=== PATIENT | female | born 1945 | race Caucasian/White ===

== ENCOUNTER → 2018-02-04 10:21 | Outpatient (CLI) | payer MEDICARE, OTHER, SELFPAY ==
--- NOTE | 2018-02-04 | DI.MG.S_ITS ---
BILATERAL DIGITAL SCREENING MAMMOGRAM 3D/2D WITH CAD: 02/04/2018 CLINICAL: Routine screening. Family history of breast cancer. Comparison is made to exams dated: 12/31/2016 mammogram, 12/28/2015 mammogram, and 12/13/2014 mammogram - [facility]. The tissue of both breasts is heterogeneously dense. This may lower the sensitivity of mammography. Current study was also evaluated with a Computer Aided Detection (CAD) system. No significant masses, calcifications, or other findings are seen in either breast. There has been no significant interval change. IMPRESSION: NEGATIVE There is no mammographic evidence of malignancy. A 1 year screening mammogram is recommended. This exam was interpreted at Station ID: [id number]. NOTE: For mammograms, a report in lay terms will be sent to the patient. Approximately 15% of breast malignancies will not be visualized mammographically. In the management of a palpable breast mass, a negative mammogram must not discourage biopsy of a clinically suspicious lesion. Electronically Signed By: Lalo lassiter/tami:02/04/2018 11:28:26 letter sent: Normal Exam ACR BI-RADS Category 1: Negative 3341F
== END ==
PROVIDERS: PCP Family Medicine; Visit Provider Family Medicine
DX: Z12.31 Encounter for screening mammogram for malignant neoplasm of breast (principal); Z80.3 Family history of malignant neoplasm of breast
CPT/HCPCS: 77063; 77067

== ENCOUNTER → 2018-07-07 13:20 | Outpatient (CLI) | payer MEDICARE, OTHER, SELFPAY ==
--- NOTE | 2018-07-07 | DI.RAD.S_ITS ---
PROCEDURE: XR KNEE RT 3V INDICATIONS: RIGHT KNEE PAIN TECHNIQUE: 3 views of the knee were acquired. COMPARISON: None. FINDINGS: Bones: No fractures or dislocations. No suspicious bony lesions. Extensive degenerative spurring is present. There is moderate narrowing of the lateral joint space and mild narrowing of medial joint space. Soft tissues: Small joint effusion. No suspicious soft tissue calcifications. IMPRESSION: Moderate right knee joint degeneration. Small joint effusion Dictated by: Tomasz Carreno M.D. on 07/07/2018 at 13:50 Approved by: Tomasz Carreno M.D. on 07/07/2018 at 13:51
== END ==
PROVIDERS: PCP Family Medicine; Visit Provider Family Medicine
DX: M25.561 Pain in right knee (principal); M17.11 Unilateral primary osteoarthritis, right knee; M25.461 Effusion, right knee
CPT/HCPCS: 73562

== ENCOUNTER 2018-07-21 02:25 | Emergency (ER) | payer MEDICARE, OTHER, SELFPAY ==
--- NOTE | 2018-07-21 02:30 | DI.CT.S_ITS ---
PROCEDURE: CT HEAD/BRAIN WO CON INDICATIONS: syncope, head injury, on aspirin TECHNIQUE: Noncontrast 4.5 mm thick angled axial sections acquired from the foramen magnum to the vertex, with coronal and sagittal reformats. For radiation dose reduction, the following was used: automated exposure control, adjustment of mA and/or kV according to patient size. COMPARISON: None. FINDINGS: Image quality: Excellent. CSF spaces: Basal cisterns are patent. No extra-axial fluid collections. The ventricles are symmetric in size and shape. Brain: No intracranial bleeds or masses. There is cerebral volume loss for age, with resultant ventricular and sulcal prominence. There are periventricular and deep white matter chronic small vessel ischemic changes. There is intracranial internal carotid artery atherosclerosis. Skull and face: Calvarium and visualized facial bones appear intact, without suspicious lesions. Sinuses: Right maxillary sinus is completely opacified. There is expansion of the right maxillary sinus. Findings concerning for a mucocele versus less likely malignancy. The mastoids are clear. IMPRESSION: 1. No acute intracranial disease process. 2. Complete opacification of the right maxillary sinus with sinus expansion concerning for mucocele versus less likely malignancy. Recommend dedicated CT scan of the paranasal sinuses and ENT consultation. Dictated by: Victorina Davis MD, PhD on 07/21/2018 at 7:24 Approved by: Victorina Davis MD, PhD on 07/21/2018 at 7:28
[2018-07-21 02:35] VITALS: BP 128/85; PULSE 106; RESP 20; TEMP 36.4; O2SAT 99; BMI 21.7
[2018-07-21] MEDS: SODIUM CHLORIDE 0.9% 1,000 ML 1000 ML IV (02:56)
[2018-07-21] MEDS: ONDANSETRON 4 MG/2 ML INJ IV (02:56)
[2018-07-21 03:10] LABS: Add Manual Diff / Slide Review NO; Basophils Percent Auto 0.3 % (0-2); Eosinophils Percent Auto 1.3 % (2-4); Hematocrit 45.9 % (36-46); Hemoglobin 15.7 g/dL (12.0-16.0); Lymphocytes Percent Auto 3.9 % (25-40); Mean Corpuscular HGB Conc 34.2 % (30-36); Mean Corpuscular Hemoglobin 30.6 PG (26-34); Mean Corpuscular Volume 89.4 fL (80-100); Monocytes Percent Auto 5.1 % (3-14); Neutrophils Absolute Auto 6800 /uL (3000-5900); Neutrophils Percent Auto 89.4 % (50-75); Platelet Count 276 X10^3/uL (150-400); Red Blood Cell Count 5.14 X10^6/uL (4.0-5.2); Red Cell Distribution Width 13.5 % (11.6-14.8); White Blood Cell Count 7.6 X10^3/uL (4.5-11.0)
[2018-07-21 03:20] LABS: BUN Creatinine Ratio 18.9 (6-22); Blood Urea Nitrogen 17 mg/dL (7-17); Calcium 8.7 mg/dL (8.4-10.2); Carbon Dioxide 25 mmol/L (22-32); Chloride 103 mmol/L (98-107); Estimated Glomerular Filt Rate > 60.0 mL/min (>60); Glucose 168 mg/dL (80-110); HEMOLYSIS < 15 (0-50); Potassium 4.5 mmol/L (3.4-5.1); Sodium 143 mmol/L (137-145)
--- NOTE | 2018-07-21 03:32 | ED.NAVMDI ---
HPI - Nausea/Vomiting/Diarrhea General Chief complaint: Nausea/Vomiting/Diarrhea Stated complaint: Cut over right eye Time Seen by Provider: 07/21/18 02:27 Source: patient and family Mode of arrival: ambulatory Limitations: no limitations History of Present Illness HPI Narrative: 73F smoking female presents with N/V/D over the course of the evening. It came on very suddenly and violently. She denies fever, chills or any blood. She denies any recent travel nor use of antibiotics. She denies any exposure to bad food. Her had similar symptoms very recently. She woke up this evening to go use the bathroom and upon standing became lightheaded and fell to the ground. She has full recall and denies syncope. She did strike her head on the ground. She takes no anticoagulants but is on baby aspirin. She denies any neck or back pain. Her tetanus is current MD complaint: nausea, vomiting and diarrhea Onset (ago): hour(s) Description of Vomiting: food contents and watery Description of Diarrhea: watery Associated Abdominal Pain: No Severity: moderate Relieving factors: none Exacerbating factors: none Associated symptoms: loss of appetite and nausea/vomiting Related Data Home Medications Medication Instructions Recorded Confirmed aspirin 81 mg PO QDAY #0 06/17/17 atorvastatin [Lipitor] 10 mg PO QDAY #0 06/17/17 conjugated estrogens [Premarin] 0.3 mg PO QDAY #0 06/17/17 lisinopril 10 mg PO QDAY #0 06/17/17 medroxyprogesterone 5 mg PO QDAY #0 06/17/17 Previous Rx's Medication Instructions Recorded ondansetron 4 mg PO TID-QID PRN #10 tab 07/21/18 Allergies Allergy/AdvReac Type Severity Reaction Status Date / Time No Known Allergies Allergy Uncoded 11/27/17 11:57 Review of Systems Review of Systems All systems reviewed & are unremarkable except as noted in HPI and below Constitutional Denies chills, Denies fever(s), Denies lethargy and Reports weakness Eyes Denies change in vision, Denies eye discharge, Denies irritation and Denies loss of vision ENT Ears, Nose, Mouth, and Throat: Denies change in voice, Denies neck pain and Denies sore throat Cardiovascular Denies chest pain, Reports syncope (near syncope), Denies irregular heart rhythm, Denies lightheadedness, Denies palpitations, Denies dyspnea, Denies dyspnea on exertion and Denies orthopnea Respiratory Denies cough, Denies dyspnea, Denies dyspnea on exertion and Denies wheezing Gastrointestinal Gastrointestinal: Denies abdominal pain, Denies change in bowel habits, Reports diarrhea, Reports nausea and Reports vomiting Genitourinary Denies hematuria, Denies flank pain, Denies urinary incontinence and Denies urinary urgency Musculoskeletal Denies neck pain Integumentary/Breasts Denies pruritus, Denies erythema, Denies rash and Reports wounds Neurologic Denies confusion, Reports syncope (near syncope), Denies loss of vision and Reports weakness Psychiatric Denies anxiety, Denies confusion, Denies depression, Denies homicidal ideation and Denies suicidal ideation Endocrine Denies palpitations Hematologic/Lymphatic Denies easy bruising Allergic/Immunologic Denies wheezing Exam Narrative Exam Narrative: 73-year-old female in mild distress, GCS 15, alert and oriented x3 Initial Vital Signs Initial Vital Signs: Vital Signs Temperature 97.6 F 07/21/18 02:35 Pulse Rate 106 H 07/21/18 02:35 Respiratory Rate 20 07/21/18 02:35 Blood Pressure 128/85 07/21/18 02:35 Pulse Oximetry 99 07/21/18 02:35 Const General: cooperative, well developed and in distress Nutritional Appearance: well nourished Orientation: alert, awake, oriented x3 and not confused [facility] Head: laceration (stellate laceration 4cm, deep above R eye) Nose: external nose normal Face and sinus: normal facial exam and dry mucous membranes Eyes General: appearance normal, both eyes and all related structures Eyelids: eyelids normal Conjunctivae: conjunctivae normal Sclera: sclerae normal Pupils: PERRL EOM: EOM intact bilaterally Neck Neck: normal visual inspection, trachea midline, No lymphadenopathy, No midline deformity and No JVD Lymphatic: No lymphedema Chest Chest: normal inspection of the chest Resp Effort & Inspection: normal respiratory effort, able to speak in complete sentences, no respiratory distress and no use of accessory muscles Auscultation: clear to auscultation bilaterally, no rales, no rhonchi and no wheezes Cardio Rate: regular rate Rhythm: regular rhythm Heart Sounds: no click, no gallops, no murmurs and no rubs Pulses: normal peripheral pulses GI Inspection: non-distended Palpation: soft, no hepatosplenomegaly, No guarding, No pulsatile mass and No tender Auscultation: normal bowel sounds Back/Spine/Pelvis Back: No CVA tenderness Cervical Spine: cervical ROM normal and No pain with cervical ROM Thoracic/Lumbar Spine: thoracic and lumbar spine normal to inspection Skin General: no rashes or lesions noted, No jaundice and No petechiae Trauma: laceration Other: poor turgor, tenting Neuro General: alert, oriented x3, gait normal and no focal motor deficits Speech: speech normal Extrem General: full ROM, no clubbing, cyanosis or edema, no pedal edema and no calf tenderness Psych Appearance: well kempt Mental Status: mental status grossly normal Attitude: cooperative Thought Content: normal and suicidality Judgment: judgment good Procedures Laceration Repair Laceration 1: Site: face Side (If applicable): right Size (cm): 4 Description: stellate Depth: involves muscle layer Local Anesthetic: lidocaine 1% and with epi Amount of anesthesia used (mL): 4 Pre-repair: wound explored Skin layer closed with: nylon Size (cm): 6-0 Number of sutures: 6 Technique: simple, interrupted Subcutaneous layer closed with: vicryl Size: 5-0 Number of sutures: 1 Course Orders Ordered: Discontinued Medications Sodium Chloride (Normal Saline 0.9%) 1,000 mls @ 1,000 mls/hr IV BOLUS ONE Stop: 07/21/18 03:28 Last Infusion: 07/21/18 04:28 Dose: 0 mls/hr Admin: 07/21/18 02:56 Dose: 1,000 mls/hr Ondansetron HCl (Zofran) 4 mg IV Q4HR PRN PRN Reason: Nausea And Vomiting Last Admin: 07/21/18 02:56 Dose: 4 mg Ondansetron HCl (Zofran Odt Prepack) 1 bottle MISC SEEINSTR ONE Stop: 07/21/18 04:22 Last Admin: 07/21/18 04:26 Dose: 1 bottle Vital Signs - 8 hr 07/21/18 02:35 Temperature 97.6 F Pulse Rate 106 H Respiratory Rate 20 Blood Pressure 128/85 Pulse Oximetry 99 MDM - Nausea/Vomiting/Diarrhea Differential Diagnosis Likely traveler's diarrhea, food poisoning, gastroenteritis, clostridium difficile infection, drug-induced nausea and vomiting and dehydration Medical Records Attestation: I reviewed the patient's medical records. Lab Data Attestation: I reviewed the patient's lab results. Result diagrams: 07/21/18 02:55 07/21/18 02:55 Lab Results 07/21/18 07/21/18 Range/Units 02:55 02:55 WBC 7.6 (4.5-11.0) X10^3/uL RBC 5.14 (4.0-5.2) X10^6/uL Hgb 15.7 (12.0-16.0) g/dL Hct 45.9 (36-46) % MCV 89.4 (80-100) fL MCH 30.6 (26-34) PG MCHC 34.2 (30-36) % RDW 13.5 (11.6-14.8) % Plt Count 276 (150-400) X10^3/uL Neut % (Auto) 89.4 H (50-75) % Lymph % (Auto) 3.9 L (25-40) % [place] % (Auto) 5.1 (3-14) % Eos % (Auto) 1.3 L (2-4) % Baso % (Auto) 0.3 (0-2) % Neut # (Auto) 6800 H (8933-8096) /uL Sodium 143 (137-145) mmol/L Potassium 4.5 (3.4-5.1) mmol/L Chloride 103 (98-107) mmol/L Carbon Dioxide 25 (22-32) mmol/L BUN 17 (7-17) mg/dL Creatinine 0.90 (0.52-1.04) mg/dL Estimated GFR > 60.0 (>60) mL/min BUN/Creatinine Ratio 18.9 (6-22) Glucose 168 H (80-110) mg/dL Calcium 8.7 (8.4-10.2) mg/dL Imaging Data CT scan - head: Radiologist's impression: [facility] Narrative Medical decision making narrative: Patient with significant N/V/D today and evidence of dehydration. Feels much better after fluids. No travel, antibiotics, bloody diarrhea, or bad food. Patient does have sick contact. Full recall of fall and negative head CT Discharge Plan Departure Patient Disposition: Home Clinical Impression: Vomiting, Diarrhea, Acute dehydration, Complex laceration of face Discharge Date/Time: 07/21/18 04:32 Interventions: ED Discharge Assessment Last Done: 07/21/18 04:31 Instructions: DI for Concussion, DI for Dehydration -- Adult, DI for Viral Gastroenteritis -- Adult Activity Restrictions/Additional Instructions: 1. Drink plenty of fluids with frequent small sips. 2. For the next 24 hours a clear liquid diet is advised. After that please employ a brat diet which would include bananas, rice, apples, toast. 3. Please take medications as directed. 4. Please follow-up with your doctor in the next 1-2 days. Call the office for an appointment. 5. Please return to the emergency Department for any worsening or persistent symptoms, such as increasing pain or fever. Please keep the wound clean and dry to the best of your ability. Please monitor for signs of infection such as redness to the skin or increasing pain. Have the sutures removed by your doctor in about 7 days. If you are unable to get into your doctor, we would be happy to remove the sutures in that same timeframe. Prescriptions: New ondansetron 4 mg tablet,disintegrating 4 mg PO TID-QID PRN (Reason: nausea and vomiting) Qty: 10 RF: 0 No Action lisinopril 10 MG tablet 10 mg PO QDAY Qty: 0 RF: 0 atorvastatin [Lipitor] 10 MG tablet 10 mg PO QDAY Qty: 0 RF: 0 medroxyprogesterone 2.5 MG tablet 5 mg PO QDAY Qty: 0 RF: 0 aspirin 81 MG tablet,delayed release (DR/EC) 81 mg PO QDAY Qty: 0 RF: 0 conjugated estrogens [Premarin] 0.3 MG tablet 0.3 mg PO QDAY Qty: 0 RF: 0
[2018-07-21 03:38] VITALS: BP 131/79; PULSE 100; RESP 19; O2SAT 100
[2018-07-21] MEDS: ONDANSETRON 4 MG ODT PREPACK 1 BOTTLE MISC (04:26)
[2018-07-21 04:31] VITALS: BP 131/73; PULSE 100; RESP 18; O2SAT 100
== END 2018-07-21 04:32 | disposition home or self-care (01) ==
PROVIDERS: Emergency Provider Emergency Medicine; PCP Family Medicine
DX: S01.91XA Laceration without foreign body of unspecified part of head, initial encounter (principal); E86.0 Dehydration; R11.10 Vomiting, unspecified; R19.7 Diarrhea, unspecified; W18.30XA Fall on same level, unspecified, initial encounter
CPT/HCPCS: 12013; 36591; 70450; 80048; 85025; 93005; 93010; 96361; 96374; 99283; 99285; J2405

== ENCOUNTER → 2019-02-06 12:41 | Outpatient (CLI) | payer MEDICARE, OTHER, SELFPAY ==
--- NOTE | 2019-02-06 | DI.MG.S_ITS ---
BILATERAL DIGITAL SCREENING MAMMOGRAM 3D/2D WITH CAD: 02/06/2019 CLINICAL: Routine screening. Family history of breast cancer. Comparison is made to exams dated: 02/04/2018 mammogram, 12/31/2016 mammogram, 12/28/2015 mammogram, 12/13/2014 mammogram, and 12/09/2013 mammogram - [facility]. The tissue of both breasts is heterogeneously dense. This may lower the sensitivity of mammography. Current study was also evaluated with a Computer Aided Detection (CAD) system. No significant masses, calcifications, or other findings are seen in either breast. There has been no significant interval change. IMPRESSION: NEGATIVE There is no mammographic evidence of malignancy. A 1 year screening mammogram is recommended. This exam was interpreted at Station ID: [id number]. NOTE: For mammograms, a report in lay terms will be sent to the patient. Approximately 15% of breast malignancies will not be visualized mammographically. In the management of a palpable breast mass, a negative mammogram must not discourage biopsy of a clinically suspicious lesion. Electronically Signed By: Toni nevarez/tami:02/06/2019 19:10:47 letter sent: Normal Exam ACR BI-RADS Category 1: Negative 3341F
== END ==
PROVIDERS: PCP Family Medicine; Visit Provider Family Medicine
DX: Z12.31 Encounter for screening mammogram for malignant neoplasm of breast (principal); Z80.3 Family history of malignant neoplasm of breast
CPT/HCPCS: 77063; 77067

== ENCOUNTER → 2019-04-15 10:42 | Outpatient (CLI) | payer MEDICARE, OTHER, SELFPAY ==
[2019-04-15 11:44] LABS: Add Manual Diff / Slide Review NO; Basophils Absolute Auto 100 /uL (0-100); Basophils Percent Auto 0.6 % (0-2); Eosinophils Absolute Auto 300 /uL (0-450); Eosinophils Percent Auto 3.4 % (2-4); Hematocrit 39.3 % (36-46); Hemoglobin 12.9 g/dL (12.0-16.0); Lymphocytes Absolute Auto 3000 /uL (1100-4500); Lymphocytes Percent Auto 33.4 % (25-40); Mean Corpuscular HGB Conc 32.7 % (30-36); Mean Corpuscular Hemoglobin 29.4 PG (26-34); Mean Corpuscular Volume 89.6 fL (80-100); Monocytes Absolute Auto 800 /uL (0-900); Monocytes Percent Auto 8.8 % (3-14); Neutrophils Absolute Auto 4900 /uL (1500-7000); Neutrophils Percent Auto 53.8 % (50-75); Platelet Count 290 X10^3/uL (150-400); Red Blood Cell Count 4.39 X10^6/uL (4.0-5.2); Red Cell Distribution Width 13.7 % (11.6-14.8)
[2019-04-15 12:17] LABS: Carbon Dioxide 26 mmol/L (22-32); Chloride 102 mmol/L (98-107); HEMOLYSIS < 15 (0-50); Potassium 4.6 mmol/L (3.4-5.1); Sodium 136 mmol/L (137-145)
== END ==
PROVIDERS: Nurse Practitioner; Visit Provider Orthopaedic Surgery
DX: Z01.818 Encounter for other preprocedural examination (principal); Z01.812 Encounter for preprocedural laboratory examination
CPT/HCPCS: 36415; 80051; 85025; 93005

== ENCOUNTER 2019-05-29 06:14 | Day surgery (SDC) | payer MEDICARE, OTHER, SELFPAY ==
[2019-05-26 13:59] VITALS: BMI 22.1
[2019-05-29] VITALS (13 sets, daily range): BP systolic 109–164; BP diastolic 66–91; PULSE 87–129; RESP 16–25; TEMP 36.3–37.3; O2SAT 92–97; BMI 21.7
--- NOTE | 2019-05-29 06:00 | DI.RAD.S_ITS ---
PROCEDURE: XR KNEE RT 1TO2V INDICATIONS: right total knee TECHNIQUE: 2 view(s) of the knee acquired. COMPARISON: [facility], , XR KNEE RT 3V, 07/07/2018, 13:25. FINDINGS: Bones: Patient is status post knee joint arthroplasty. Hardware components are in expected positions. Visualized bony structures are intact. Soft tissues: Overlying postoperative changes are noted. IMPRESSION: Knee prosthesis in anatomic alignment. Dictated by: Abrahan Busch M.D. on 05/29/2019 at 10:44 Approved by: Abrahan Busch M.D. on 05/29/2019 at 10:44
[2019-05-29] MEDS: LACTATED RINGERS 1,000 ML 42 ML IV ×2 (07:08→09:22)
[2019-05-29] MEDS: ACETAMINOPHEN 325 MG TABLET 975 MG PO ×4 (07:16→21:50)
[2019-05-29] MEDS: CELECOXIB 200 MG CAPSULE PO (07:16)
--- NOTE | 2019-05-29 07:34 | P.OP_ITS ---
Operative Date/Time/Diagnoses Date of procedure: 05/29/19 Time of procedure: 09:24 Pre-op diagnosis: Right knee osteoarthritis Post-op diagnosis: same Procedure & Clinicians Procedure: Right total knee arthroplasty Same procedure as scheduled: Yes Indications: The patient presents today for total knee arthroplasty after failure of conservative treatment. The nature of the procedure including the risks and benefits, alternatives, postoperative course and expected outcome were discussed and all questions answered. Consent was obtained. Operative site confirmed and marked. Surgeon: Lalo Castellanos Cleaning Machine Operator: Raymond Guido Anesthesia Type: General, Spinal and Local Operative Notes Findings: Severe osteoarthritis with valgus alignment. Closure Type: primary Specimen(s): none sent Prosthetic devices, grafts, tissues, transplants, or devices: [employer] BCS: 5 femoral component, 3 tibial component, 9 mm BCS polyethylene tray and 32 x 7.5 mm round patella Applied: implant(s) Estimated Blood Loss (mL): 10 Blood products transfused: none Tourniquet time (min): 58 Procedure in detail: The patient was taken to the operative suite and placed under general and spinal anesthesia. The patient was given prophylactic antibiotics prior to surgery. The patient was also given tranexamic acid, 1 g, just prior to surgery for postoperative hemostasis. The lateral knee was prepped and the joint injected with 20 mL of 1% Lidocaine with epinephrine. The knee was then prepped and draped in usual sterile fashion. The leg was exsanguinated with an Esmarch dressing and the tourniquet raised to 250 torr. A 15 cm anterior incision was made. Next a medial trivector arthrotomy was made. The extensor mechanism was marked to ensure accurate repair. Initial exposing dissection was carried out medially and laterally. The knee was then extended and the patellar thickness was measured and a cut made removing approximately 7- 8 mm of bone. The patella was then sized and drilled. Some excess lateral bone was excised and the patellofemoral ligament released. The knee was then flexed and the intramedullary femoral guide mahad placed. The distal femoral cut was made in 6 ? of valgus at the + 0 position. The femoral size was measured and the appropriate cutting block was then placed and the anterior, posterior and chamfer cuts made. The intramedullary tibial alignment mahad was then placed. The guide was set to remove approximately 9 mm from the less affected medial side. The proximal tibial cut was then made with an oscillating saw. All meniscus and bony debris was then removed. Posterior femoral osteophytes removed with a curved osteotome. Flexion extension gaps were checked. The knee was tight laterally as expected from her preoperative alignment. This was corrected with release of the lateral capsular structures with a 15 blade in a pie crust technique. The soft tissues were then injected with a combination of 20 mL of half percent Marcaine with epinephrine and 20 mL of Exparel. The trial components were then placed. The knee went into full extension and flexion beyond 120?. There was excellent medial-lateral balance throughout motion. Patellar tracking was excellent. The trial components were removed and the knee was cleansed with Pulsavac irrigation and dried. The final components were cemented with high viscosity vacuum mixed bone cement with antibiotics. The joint was filled with a dilute Betadine solution. The knee was held in extension and the patellar clamped until the cement was fully cured. The knee was then irrigated. The extensor mechanism was closed with 5 interrupted #1 Vicryl sutures and a running Quill suture at 90 degrees of flexion. The joint was then injected with a combination of 1 g of tranexamic acid and 20 mL of quarter percent Marcaine with epinephrine. The subcutaneous tissue was closed with 2 0 Vicryl. The skin was closed with merle and surgical adhesive. An Aquacel dressing and Johan wrap were then applied. The patient tolerated the procedure well and was returned to recovery room in good condition. Complications: none Post-operative Condition: stable Disposition: PACU Plan for aftercare: [facility] protocol for total knee arthroplasty.
--- NOTE | 2019-05-29 07:34 | PM.PREOP ---
Pre-operative Note Interval Note History & Physical reviewed/Exam performed by Physician: Yes Changes to H&P: No
[2019-05-29] MEDS: CEFAZOLIN 2 GM/100 ML FROZ.PIGGY IV ×2 (07:45→16:29)
[2019-05-29] MEDS: TRANEXAMIC ACID 1,000 MG VIAL 1000 MG INJ (08:10)
--- NOTE | 2019-05-29 08:14 | SUR.OPER ---
Supine on padded OR bed. Pillow under head, arms secured on padded armboards <90 degree abduction. Safety belt across torso. Non-operative leg secured with tape over blanket over lower leg. Operative leg secured in DeMayo/Mitesh positioner. Foam padded brace at thigh of operative leg.
[2019-05-29] MEDS: BUPIVACAINE 0.25% W/ EPI (PF) 20 ML, TRANEXAMIC ACID 1,000 MG, SODIUM CHLORIDE 0.9% 10 ML INJ (08:23)
[2019-05-29] MEDS: BUPIVACAINE 0.25% W/ EPI (PF) 40 ML, BUPIVACAINE LIPOSOME 266 MG, SODIUM CHLORIDE 0.9% ... INJ (08:24)
[2019-05-29] MEDS: SODIUM CHLORIDE IRRIG SOLUTION 250 ML, POVIDONE-IODINE SPONGE STICKS 1 APPLIC IRR (08:25)
[2019-05-29] MEDS: LACTATED RINGERS 1,000 ML 125 ML IV ×2 (11:06→21:52)
[2019-05-29] MEDS: ASPIRIN EC 81 MG TABLET PO ×2 (12:03→21:50)
[2019-05-29] MEDS: OXYCODONE IR 5 MG TABLET 10 MG PO ×2 (14:25→21:50)
--- NOTE | 2019-05-29 14:30 | PT.IIE ---
Current Diagnoses Unilateral primary osteoarthritis, right knee (05/29/19) Surgery Performed Operation Date: 05/29/19 07:45 Actual Procedures p Total Knee Arthroplasty(Right) - Lalo Castellanos MD Surgical History (Last Updated 05/26/19 @ 14:11 by Kiki Rodriguez, RN) History of carpal tunnel surgery of right wrist (Acute ~2015) History of dilation and curettage (Acute ~1972) History of lumpectomy of right breast (Acute ~1984) Hx of arthroscopy of right knee (Acute) Hx of tonsillectomy (Acute) Medical History (Last Updated 05/26/19 @ 14:11 by Kiki Rodriguez RN) Easy bruisability (Acute) HLD (hyperlipidemia) (Acute) HTN (hypertension) (Acute) Osteoarthritis (Acute) Physical Therapy Inpatient Evaluation/Re-Eval M1 PT/OT-IP Prior Functional Status Start: 05/29/19 11:12 Freq: NEEDED Status: Active Protocol: Document 05/29/19 14:30 AB (Rec: 05/29/19 15:31 AB [id number]) Medical Review Prior Functional Status Medical History Reviewed Yes Diet/Fluid Consistency Regular Communication Able to make needs known. Mobility and Gait pt stated that she is modified indepednet with all mobilities and ambulation without AD; has been using her walking sticks for the passed few weeks due to pain Activities of Daily Living and IADL's Independent for ADLs and IADLs . Able to drive Social History Household Members spouse Living Arrangements House Number of Floors (Floors) Two Floors Number of Stairs To Enter/Railing? 2 SCARLET without rails, 15 steps to 2nd floor with R rail Home Environment High Toilet,Walk in Shower Home Equipment Front Wheel Walker,Four Wheel Walker,Straight Cane,Raised Toilet Seat w/Armrests,Shower Seat with Backrest,Grab Bars In Shower Employment Status Retired Additional Social History Comment pt stated that if needed, she can stay on the main level of the house and sleep on her couch. M2 PT-IP Current Condition Start: 05/29/19 11:12 Freq: NEEDED Status: Active Protocol: Document 05/29/19 14:30 AB (Rec: 05/29/19 15:31 AB [id number]) Physical Therapy Current Condition Current Condition Evaluation Date 05/29/19 Treatment Diagnosis s/p R TKA; difficulty in walking Onset Date 05/29/19 Weight Bearing Status Weight Bearing Status Weight Bear as Tolerated M3 PT-IP Subjective Start: 05/29/19 11:12 Freq: NEEDED Status: Active Protocol: Document 05/29/19 14:30 AB (Rec: 05/29/19 15:31 AB [id number]) Subjective Physical Therapy Visit Type Type Initial Evaluation Visit Start Time 14:30 Visit Stop Time 15:06 Total Visit Minutes 36 Number of UPPER CASER Visits 0 Physical Therapy Visit Comments Patient Comments pt agreeable to do PT Therapy Pain Assessment Pain When Pain Assessed At Rest Pain Present Pain Present Pain Reported Location Right Knee Intensity 5 Scale Used Numeric (1 - 10) Pain Management Techniques Re-positioning,Timing of Activity with Medications M4 PT-IP Mobility and Gait Start: 05/29/19 11:12 Freq: NEEDED Status: Active Protocol: Document 05/29/19 14:30 AB (Rec: 05/29/19 15:41 AB [id number]) PT-Bed Mobility Assessment Supine to Sit Supine to Sit Standby Assistance Sit to Supine Sit to Supine Standby Assistance Scooting Scooting to Edge of Bed Standby Assistance PT-Transfer Assessment Sit to and From Stand Sit to and from Stand Minimal Assistance,1 Person Assistance,Use of Upper Extremities Equipment Transfer Assistive Device Gait Belt,Front Wheeled Walker Orthotic/Prosthetic Devices or Brace: No Transfers Transfer Destination Bedside Commode Transfer Technique Stand Step Pivot Transfer Ability Level of Assist Minimal Assistance,1 Person Assistance,Use of Upper Extremities Gait Assessment Gait Gait Assistance Required: Minimum Assistance Distance (Feet) 25 Able to Maintain Weight Bearing Status Yes During Gait Assistive Devices Assistive Device Gait Belt,Front Wheeled Walker Orthotic/Prosthetic Devices or Brace: No Gait Deviations General Gait Pattern Antalgic,Decreased Stride Length,Decreased Feet Clearance,Step-to Gait Factors Limiting Gait Function Factors Limiting Gait Function Decreased Activity Tolerance, Decreased Sensation,Decreased Strength,Limited Range of Motion,Pain,Poor Balance,Poor Safety Awareness Comments Gait Comments pt unable to DF R foot and still has decrease sensation and with difficulty with RLE propulsion during transfers and ambulation. requiring assist to stabilize R knee. PT-Balance Assessment Sitting Balance and Reactions Static Sitting Balance Ability Good Dynamic Sitting Balance Ability Good Standing Balance and Reactions Static Standing Balance Ability Fair Dynamic Standing Balance Ability Fair Device Used FWW M5 PT-IP Objective Assessments Start: 05/29/19 11:12 Freq: NEEDED Status: Active Protocol: Document 05/29/19 14:30 AB (Rec: 05/29/19 15:41 AB [id number]) Orientation Orientation/Cognition Level of Alertness Alert Orientation Name,Place,Situation Safety Awareness Decreased Safety Awareness Gross Range of Motion Lower Extremity ROM Assessment Within Functional Limits Strength Lower Extremity Strength Assessment Right Impaired Hip 4-/5 Knee 3+/5 Ankle 1/5 for DF Coordination Assessment Gross Coordination Gross Coordination WNL Sensation Assessment Sensation Gross Sensation Right LE Impaired Sensation Description Numbness M6 PT-IP Treatment Start: 05/29/19 11:12 Freq: NEEDED Status: Active Protocol: Document 05/29/19 14:30 AB (Rec: 05/29/19 15:41 AB [id number]) Physical Therapy Treatment Exercises Exercises Quad Sets Education Education Provided Precautions,Weight Bearing Status,Post-Op Packet,Safety M7 PT-IP Assessment and Plan Start: 05/29/19 11:12 Freq: NEEDED Status: Active Protocol: Document 05/29/19 14:30 AB (Rec: 05/29/19 15:41 AB [id number]) PT Summary Assessment and Plan Potential Rehabilitation Potential Good Status of Condition at Evaluation Evolving Summary Impairments Pain,ROM,Strength,Balance, Coordination,Sensation,Tone, Cognition,Bed Mobility, Transfers,Gait,Activity Tolerance Assessment Summary pt requiring min A and cues with mobility. pt still has decrease sensation on RLE and unable to do DF and with difficulty with RLE motor control. pt will likely progress with mobility and when appropriate caregiver training will be conducted and also stair training. pt is set up for outpt PT. Goals Bed Mobility Goal Independent Transfer Goal Standby Assistance,Front Wheeled Walker Gait Goal Standby Assistance,Front Wheel Walker Gait Distance 200 Other Goals up/down 2 steps using SPC/[employer] min A up/down 15 steps with R rail SBA Days to Meet Goals 5 Frequency of Treatment Frequency Of Treatment Twice a Day Treatment Plan Physical Therapy Treatment Plan Bed Mobility Training,Transfer Training,Gait Training, Therapeutic Exercise,Balance Retraining,Post Op Education, Discharge Planning,Hot or Cold Pack,Neuromuscular Re-ed, Coordination Retraining,Manual Therapy Other Recommendations and Next Treatment ambulation, caregiver training Focus , stair climbing Recommendations To Nursing Amount of Assist Needed 2 Person Assist Discharge Recommendations PT Discharge Recommendations Home with Assistance, Outpatient PT
--- NOTE | 2019-05-29 15:45 | PC.NURSE ---
DAY SHIFT Report received from PACU, pt admitted at 0955. A&O x3, VSS, no c/o pain. Right leg numb from spinal from just above the knee. No nausea, tolerating food and drink. OOB to BSC with 2 ADMINISTRATIVE TECH's. Able to void.
[2019-05-29] MEDS: NAPROXEN 250 MG TABLET 500 MG PO (16:30)
[2019-05-30] MEDS: CEFAZOLIN 2 GM/100 ML FROZ.PIGGY IV (00:50)
[2019-05-30] MEDS: OXYCODONE IR 5 MG TABLET 10 MG PO ×4 (00:54→14:46)
[2019-05-30] MEDS: hydrOXYzine pamoate 25 MG CAPSULE PO (00:57)
[2019-05-30 04:45] VITALS: BP 141/80; PULSE 87; RESP 18; TEMP 36.7; O2SAT 94
[2019-05-30] MEDS: LACTATED RINGERS 1,000 ML 125 ML IV (04:54)
[2019-05-30 06:46] LABS: Hematocrit 32.2 % (36-46); Hemoglobin 10.8 g/dL (12.0-16.0)
[2019-05-30 08:21] VITALS: BP 149/75; PULSE 87; RESP 16; TEMP 37; O2SAT 96
--- NOTE | 2019-05-30 09:06 | CM.DANOTE ---
DCP: Case received, EMR reviewed and met with patient. Introduced self and role. Was able to meet with patient in her room in order to retrieve baseline health history and activity, prior to surgery. DCP assessment/template completed with information currently available. Patient is a 74 year old female who admitted yesterday morning to the care of the orthopedic team. PCP: Dr. Duke. Payer: confirmed: Medicare/[employer]. Patient came to the hospital for a surgical procedure. She had a right total knee arthroplasty. Patient has history of osteoarthritis, and she had been having increased pain, in which the cortisone injections were not working as well. Met with patient in her room. She was sitting up in her bed, alert and oriented. She resides here in [place] with her , Robert. She mentioned that she has been independent at home, and does not use any DME supplies. Patient mentioned that she already has outpatient physical therapy set up. P: DCP to continue to follow. She will be working with physical therapy as well. Goal is for home when medically stable, and clearance by therapy team. Lucina Weiss RN/Emergency Dispatcher
[2019-05-30] MEDS: NAPROXEN 250 MG TABLET 500 MG PO (09:27)
[2019-05-30] MEDS: ACETAMINOPHEN 325 MG TABLET 975 MG PO ×2 (09:27→14:46)
[2019-05-30] MEDS: ASPIRIN EC 81 MG TABLET PO (09:27)
[2019-05-30] MEDS: LISINOPRIL 10 MG TABLET PO (09:29)
[2019-05-30] MEDS: ATORVASTATIN 10 MG TABLET PO (09:29)
[2019-05-30 12:00] VITALS: BP 134/59; PULSE 96; RESP 16; TEMP 37.1; O2SAT 99
--- NOTE | 2019-05-30 13:45 | PT.IPTN ---
Current Diagnoses Unilateral primary osteoarthritis, right knee (05/29/19) Surgery Performed Operation Date: 05/29/19 07:45 Actual Procedures p Total Knee Arthroplasty(Right) - Lalo Castellanos MD Physical Therapy Treatment Note M2 PT-IP Current Condition Start: 05/29/19 11:12 Freq: NEEDED Status: Active Protocol: Document 05/29/19 14:30 AB (Rec: 05/29/19 15:31 AB [id number]) Physical Therapy Current Condition Current Condition Evaluation Date 05/29/19 Treatment Diagnosis s/p R TKA; difficulty in walking Onset Date 05/29/19 Weight Bearing Status Weight Bearing Status Weight Bear as Tolerated M3 PT-IP Subjective Start: 05/29/19 11:12 Freq: NEEDED Status: Active Protocol: Document 05/30/19 12:43 LJ (Rec: 05/30/19 13:45 LJ [id number]) Subjective Physical Therapy Visit Type Type Treatment Note Visit Start Time 12:43 Visit Stop Time 13:13 Total Visit Minutes 23 Notes Pt wanting to get up and ambulate in hallway. Number of PROP AND SCENERY MAKER Visits 1 Therapy Pain Assessment Pain When Pain Assessed During Mobility Pain Present Pain Present Pain Reported Location Right Knee Intensity 2 Pain Management Techniques Re-positioning,Timing of Activity with Medications M4 PT-IP Mobility and Gait Start: 05/29/19 11:12 Freq: NEEDED Status: Active Protocol: Document 05/30/19 12:43 LJ (Rec: 05/30/19 13:45 LJ [id number]) PT-Bed Mobility Assessment Supine to Sit Supine to Sit Standby Assistance,Head of Bed Elevated Sit to Supine Sit to Supine Standby Assistance,Head of Bed Elevated Scooting Scooting to Edge of Bed Standby Assistance PT-Transfer Assessment Sit to and From Stand Sit to and from Stand Standby Assistance,Use of Upper Extremities Equipment Transfer Assistive Device Gait Belt,Front Wheeled Walker Orthotic/Prosthetic Devices or Brace: No Transfers Transfer Destination Bed Transfer Technique Stand Step Pivot Transfer Ability Level of Assist Standby Assistance,Use of Upper Extremities Gait Assessment Gait Gait Assistance Required: Standby Assistance Distance (Feet) 360 Assistive Devices Assistive Device Gait Belt,Front Wheeled Walker Orthotic/Prosthetic Devices or Brace: No Gait Deviations General Gait Pattern Antalgic,Decreased Stride Length,Decreased Feet Clearance,Step-to Gait Factors Limiting Gait Function Factors Limiting Gait Function Decreased Activity Tolerance, Decreased Strength,Limited Range of Motion,Pain,Poor Balance Comments Gait Comments Pt able to perform bed mobility, transfers, and gait SBA. Still experiencing R DF difficulty but was able to ambulate and do stairs without any problems. After stairs, there was a bit more DF in right foot while ambulating back to pts room. Stair Climbing Assessment Evaluation Level of Assist On Stairs Standby Assistance Devices Stair Climbing Assistive Devices Right Railing Technique/Endurance Stair Climbing Direction Ascend and Descend Stair Climbing Technique Step to Step Number of Steps Climbed 3 Stair Climbing Set # Repetitions (reps) 3 Comments Stair Climbing Comments Pt able to climb and descend stairs using right rail only to simulate set up at home. She performed well on stairs with steadiness and safety awareness. Pt will be there following behind her. M5 PT-IP Objective Assessments Start: 05/29/19 11:12 Freq: NEEDED Status: Active Protocol: Document 05/29/19 14:30 AB (Rec: 05/29/19 15:41 AB [id number]) Orientation Orientation/Cognition Level of Alertness Alert Orientation Name,Place,Situation Safety Awareness Decreased Safety Awareness Gross Range of Motion Lower Extremity ROM Assessment Within Functional Limits Strength Lower Extremity Strength Assessment Right Impaired Hip 4-/5 Knee 3+/5 Ankle 1/5 for DF Coordination Assessment Gross Coordination Gross Coordination WNL Sensation Assessment Sensation Gross Sensation Right LE Impaired Sensation Description Numbness M6 PT-IP Treatment Start: 05/29/19 11:12 Freq: NEEDED Status: Active Protocol: Document 05/30/19 12:43 LJ (Rec: 05/30/19 13:45 [id number]) Physical Therapy Treatment Exercises Exercises Gluteal Sets,Quad Sets,Heel Slides Education Education Provided Safety M7 PT-IP Assessment and Plan Start: 05/29/19 11:12 Freq: NEEDED Status: Active Protocol: Document 05/30/19 12:43 LJ (Rec: 05/30/19 13:45 [id number]) PT Summary Assessment and Plan Potential Rehabilitation Potential Good Status of Condition at Evaluation Evolving Summary Assessment Summary Pt still with R foot DF deficit but able to ambultate safely without difficulty. After stairs and second ambulation in hallway pt experienced a slight improvement in DF. Dr. Gonzales spoke to pt in hallway and reported she would see pt in room later today. Chirstian requested PT to obtain an AFO but unable to bc they are not available in IP. Pt is safe to DC home w/o AFO. If DF deficit continues pt can obtain AFO from her out patient physical therapist after she is assessed during her first visit. Goals Bed Mobility Goal Independent Transfer Goal Standby Assistance,Front Wheeled Walker Gait Goal Standby Assistance,Front Wheel Walker Gait Distance 200 Other Goals up/down 2 steps using SPC/[employer]ION [employer]PENTER min A up/down 15 steps with R rail SBA Days to Meet Goals 5 Frequency of Treatment Frequency Of Treatment Twice a Day Treatment Plan Physical Therapy Treatment Plan Bed Mobility Training,Transfer Training,Gait Training, Therapeutic Exercise,Balance Retraining,Post Op Education, Discharge Planning,Hot or Cold Pack,Neuromuscular Re-ed, Coordination Retraining,Manual Therapy Other Recommendations and Next Treatment ambulation, caregiver training Focus , stair climbing Recommendations To Nursing Amount of Assist Needed Standby Assistance Discharge Recommendations PT Discharge Recommendations Home with Assistance, Outpatient PT
--- NOTE | 2019-05-30 13:48 | PM.PNPO.1 ---
Subjective Subjective Date Patient Seen: 05/30/19 Time Patient Seen: 01:00 Interval history: Post op day 1 s/p R total knee arthroplasty, patient complains of difficulty moving right foot. States it began after surgery and hasn't improved. More loss of motor control vs loss of sensation. Denies any hx of back problems. Patient ambulated with physical therapy yesterday but had trouble progressing due to right foot. Exam Vital Signs (past 8 hours): - 05/30/19 08:21 05/30/19 12:00 Temperature 98.6 F 98.7 F Pulse Rate 87 96 H Respiratory Rate 16 16 Blood Pressure 149/75 H 134/59 L Pulse Oximetry 96 99 Oxygen Delivery Method Room Air Oxygen Flow Rate 0 Objective Labs Result Diagrams: 05/30/19 06:32 Labs: Laboratory Results - last 24 hr 05/30/19 06:32 Hgb 10.8 L Hct 32.2 L Assessment & Plan Post-op Postoperative Procedures: Procedures Operation Date: 05/29/19 07:45 Actual Procedures Side Surgeon p Total Knee Arthroplasty Right Lalo Castellanos MD
--- NOTE | 2019-05-30 14:07 | P.DS_ITS ---
History of Present Illness History of Present Illness Date Patient Seen: 05/30/19 Time Patient Seen: 11:00 Chief complaint: 37820 Right Total Knee Arthroplasty Narrative: The patient presents today for total knee arthroplasty after failure of conservative treatment. The nature of the procedure including the risks and benefits, alternatives, postoperative course and expected outcome were discussed and all questions answered. Consent was obtained. Operative site confirmed and marked. Post op day 1 s/p right total knee arthroplasty with Dr. Castellanos. Patient complains of difficulty moving right foot. States it started after surgery. Ambulated with PT but had difficulty due to right foot. Denies loss of sensation, hx of back pain. No other complaints or acute events overnight. Patient voiding and eating without difficulty or assistance. Pain well contr olled with oxycodone, tylenol. Discharge Providers Provider Date of admission: 05/29/19 06:14 Discharge Date: 05/30/19 Primary care physician: Cass Duke MD Consults: 05/29/19 10:30 Consult to Discharge Planning Routine Comment: Consult to Physical Therapy Evaluate & Treat Comment: Physician Instructions: postop TKA protocol Consult to Respiratory Therapy Evaluate & Treat Comment: Physician Instructions: Evaluate and treat Discharge provider: Zev Dietz PA-C Summary Hospital Course Discharge Diagnosis: s/p right total knee arthroplasty hypertension hyperlipidemia arthritis Hospital Course: Patient admitted for right total knee arthroplasty with Dr. Castellanos. Hospital course notable for possible foot drop. Patient given pr escription for decadron and right AFO. PT consulted and patient cleared. Post op day 1 patient was ready for discharge home. Patient already has oxycodone at home. Patient eating and voiding without difficulty or assistance prior to discharge. Patient mobilizing with PT, w difficulty due to right foot. Patient has outpatient PT scheduled. Dressing was CDI. ASA 81 mg bid for dvt prophylaxis. Status at Discharge Cognitive/behavioral status at discharge: oriented Functional status at discharge: uses cane/walker Overall status at discharge: patient is progressing back to baseline Time Spent with Patient Time spent: Less than 30 minutes Exam Vital Signs (past 8 hours): - 05/30/19 08:21 05/30/19 12:00 Temperature 98.6 F 98.7 F Pulse Rate 87 96 H Respiratory Rate 16 16 Blood Pressure 149/75 H 134/59 L Pulse Oximetry 96 99 Oxygen Delivery Method Room Air Oxygen Flow Rate 0 Narrative Exam Narrative: 74 year old female is laying comfortably in bed, in no apparent distress. A&Ox3. Dressing CDI on right knee. Patient had difficulty actively dorsiflexing right foot ; can plantar flex b/l. Able to dorsiflex left foot. Sensation grossly intact to light touch in lower extremities bilaterally. Dorsalis pedis 2+ b/l. Cap refill <2s LE b/l. Objective Labs Result Diagrams: 05/30/19 06:32 Labs: Laboratory Results - last 24 hr 05/30/19 06:32 Hgb 10.8 L Hct 32.2 L Discharge Plan Discharge Plan Patient Disposition: Home Discharge comment: Discharge home Discharge Med Rec/Prescriptions Prescriptions: New dexamethasone [Decadron] 4 mg tablet 4 mg PO Q8H Qty: 9 RF: 0 acetaminophen [Tylenol Extra Strength] 500 mg tablet 500 mg PO Q4H PRN (Reason: pain) Qty: 60 RF: 0 ibuprofen 400 mg tablet 400 mg PO Q4H Qty: 60 RF: 0 Continued lisinopril 10 MG tablet 10 mg PO QDAY Qty: 0 RF: 0 atorvastatin [Lipitor] 10 MG tablet 10 mg PO QAM Qty: 0 RF: 0 medroxyprogesterone 2.5 MG tablet 2.5 mg PO QDAY Qty: 0 RF: 0 Premarin 0.3 MG tablet 0.3 mg PO QDAY Qty: 0 RF: 0 Discontinued aspirin 81 MG tablet,delayed release (DR/EC) 81 mg PO QDAY Qty: 0 RF: 0 acetaminophen [Tylenol Extra Strength] 500 mg Tablet 1,000 mg PO DAILY PRN (Reason: Pain) RF: 0 naproxen sodium [Aleve] 220 mg Capsule 440 mg PO DAILY RF: 0 Follow up/Referrals: Cass Duke MD [Primary Care Provider] - Provider Discharge Instructions Diet: Regular Activity: Weight bearing as tolerated. Use right ankle foot orthotics. [employer] total knee arthroplasty precautions. Cold/Heat Therapy: continue cold/heat therapy Skin/Wound/Dressing Care Report to your healthcare provider any signs of infection, such as:: chills, fever, increased pain, unusual drainage and unusual redness Dressing: Keep dressing dry. If saturated, contact office. Visit Report/Discharge Packet Instructions: Dexamethasone Visit Report Forms: Patient Portal/API, Stroke Signs & Symptoms Discharge Data Primary Care Provider: Cass Duke Discharges patient from system. Discharge Date/Time: 05/30/19 15:05
--- NOTE | 2019-05-30 15:04 | PC.NURSE ---
Patient education completed. Patient verbalized understanding regarding medications and follow up. at bedside. IV from left forearm removed, patient tolerated well. Patient discharged via wheelchair.
== END 2019-05-30 15:05 | disposition home or self-care (01) ==
LOC: AC 05-30 14:00 → OR 05-31 10:30
PROVIDERS: PCP Student in an Organized Health Care Education/Training Program; Visit Provider Orthopaedic Surgery
PROC: 0SRC0JZ Replacement of Right Knee Joint with Synthetic Substitute, Open Approach (ICD-10-PCS; CPT 27447; principal; 2019-05-29 07:45)
DX: M17.11 Unilateral primary osteoarthritis, right knee (principal); I10 Essential (primary) hypertension; E78.5 Hyperlipidemia, unspecified
CPT/HCPCS: 27447; 36415; 73560; 85014; 85018; 97116; 97162; C1776; C9290; J0690; J1100; J2250; J2405; J2704

== ENCOUNTER → 2020-02-12 11:19 | Outpatient (CLI) | payer MEDICARE, OTHER, SELFPAY ==
[2019-05-29 10:28] VITALS: BMI 21.7
[2020-02-12 11:57] LABS: Add Manual Diff / Slide Review NO; Basophils Absolute Auto 100 /uL (0-100); Basophils Percent Auto 1.2 % (0-2); Eosinophils Absolute Auto 200 /uL (0-450); Eosinophils Percent Auto 2.6 % (2-4); Hematocrit 40.6 % (36-46); Hemoglobin 13.6 g/dL (12.0-16.0); Lymphocytes Absolute Auto 3100 /uL (1100-4500); Lymphocytes Percent Auto 33.9 % (25-40); Mean Corpuscular HGB Conc 33.6 % (30-36); Mean Corpuscular Hemoglobin 30.1 PG (26-34); Mean Corpuscular Volume 89.6 fL (80-100); Monocytes Absolute Auto 800 /uL (0-900); Monocytes Percent Auto 8.8 % (3-14); Neutrophils Absolute Auto 4800 /uL (1500-7000); Neutrophils Percent Auto 53.5 % (50-75); Platelet Count 304 X10^3/uL (150-400); Red Blood Cell Count 4.52 X10^6/uL (4.0-5.2); Red Cell Distribution Width 13.2 % (11.6-14.8)
[2020-02-12 12:24] LABS: Erythrocyte Sedimentation Rate 5 MM/HR (0-20)
[2020-02-12 12:25] LABS: C-Reactive Protein Quant < 0.5 mg/dL (<1.0)
== END ==
PROVIDERS: PCP Student in an Organized Health Care Education/Training Program; Referring Provider Orthopaedic Surgery; Visit Provider Orthopaedic Surgery
DX: M25.561 Pain in right knee (principal); T84.53XS Infection and inflammatory reaction due to internal right knee prosthesis, sequela
CPT/HCPCS: 36415; 85025; 85651; 86140

== ENCOUNTER → 2020-02-22 09:13 | Outpatient (CLI) | payer MEDICARE, OTHER, SELFPAY ==
[2019-05-29 10:28] VITALS: BMI 21.7
--- NOTE | 2020-02-22 | DI.NM.S_ITS ---
PROCEDURE: NM BONE 3 PHASE RADIOPHARMACEUTICAL: 20.9 mCi Tc-99m MDP IV. INDICATIONS: RIGHT KNEE JOINT PAIN TECHNIQUE: Multiple bone scintigrams were obtained after intravenous injection of Tc-99m MDP, including flow, blood pool, and delayed images centered to the region of interest. COMPARISON: [facility], CR, XR KNEE RT 3V, 07/07/2018, 13:25. [facility] [place], CR, XR KNEE ARTHRITIC SERIES RT, 03/05/2019, 13:50. [facility] [place], CR, XR KNEE ARTHRITIC SERIES RT, 11/02/2019, 11:32. [facility] [place], CR, XR KNEE ARTHRITIC SERIES RT, 07/06/2019, 10:45. [facility], CR, XR KNEE RT 1TO2V, 05/29/2019, 9:33. FINDINGS: There is photopenia in the right knee consistent with arthroplasty. The flow and blood pool images demonstrate increased vascular activity around the right knee prosthesis. Delayed images demonstrate increased activity at the prosthesis/bone interface. Increased activity around the left knee is consistent with degenerative joint disease. IMPRESSION: 1. There is right knee arthroplasty. There is increased flow, blood pool and delayed activity around the right knee prosthesis, suggesting infection or prosthesis loosening. 2. Degenerative joint disease of the left knee. Dictated by: Abrahan Busch M.D. on 02/22/2020 at 16:02 Approved by: Abrahan Busch M.D. on 02/22/2020 at 18:27
== END ==
PROVIDERS: PCP Student in an Organized Health Care Education/Training Program; Referring Provider Orthopaedic Surgery; Visit Provider Orthopaedic Surgery
DX: M25.561 Pain in right knee (principal); M17.12 Unilateral primary osteoarthritis, left knee; Z96.651 Presence of right artificial knee joint
CPT/HCPCS: 78315; A9503

== ENCOUNTER → 2020-03-26 10:36 | Outpatient (CLI) | payer MEDICARE, OTHER, SELFPAY ==
[2019-05-29 10:28] VITALS: BMI 21.7
--- NOTE | 2020-03-26 | DI.MG.S_ITS ---
BILATERAL DIGITAL SCREENING MAMMOGRAM 3D/2D WITH CAD: 03/26/2020 CLINICAL: Routine screening. Family history of breast cancer. Comparison is made to exams dated: 02/06/2019 mammogram, 12/31/2016 mammogram, 02/04/2018 mammogram, 12/09/2013 mammogram, 12/28/2015 mammogram, and 12/13/2014 mammogram - [facility]. There are scattered fibroglandular elements in both breasts. Current study was also evaluated with a Computer Aided Detection (CAD) system. No significant masses, calcifications, or other findings are seen in either breast. There has been no significant interval change. IMPRESSION: NEGATIVE There is no mammographic evidence of malignancy. A 1 year screening mammogram is recommended. This exam was interpreted at Station ID: [id number]. NOTE: For mammograms, a report in lay terms will be sent to the patient. Approximately 15% of breast malignancies will not be visualized mammographically. In the management of a palpable breast mass, a negative mammogram must not discourage biopsy of a clinically suspicious lesion. Electronically Signed By: Gonzalo cates/tami:03/28/2020 07:55:16 letter sent: Normal Exam ACR BI-RADS Category 1: Negative [id number]
== END ==
PROVIDERS: PCP Student in an Organized Health Care Education/Training Program; Referring Provider Student in an Organized Health Care Education/Training Program; Visit Provider Student in an Organized Health Care Education/Training Program
DX: Z12.31 Encounter for screening mammogram for malignant neoplasm of breast (principal); Z80.3 Family history of malignant neoplasm of breast
CPT/HCPCS: 77063; 77067

== ENCOUNTER → 2020-12-15 10:19 | Outpatient (CLI) | payer MEDICARE, OTHER, SELFPAY ==
[2019-05-29 10:28] VITALS: BMI 21.7
--- NOTE | 2020-12-15 | DI.ECHO.S_ITS ---
[place] [facility]---------+ [facility] +---------+ : : [address] : [address] : : : : [id number] : : : : Phone: [phone]---------+ Echocardiogram Report + + :Name: ANKITA MCGARRY Study Date: 12/15/2020 Height: 65 in : :[facility] ReadingLocation: Weight: 130 lb : : Gender: Female BSA: 1.6 m2 : :: 1945 Age: 75 yrs BP: 157/79 mmHg: :Reason For Study: Murmur : :Ordering Physician: DELROY, : :LISA Performed By: Mitch Leone : :Referring: LISA POTTS : + + Interpretation Summary Left ventricular ejection fraction is estimated to be 70 +/- 5%. There is mild to moderate aortic stenosis. The aortic valve mean gradient is 21 mmHg. There is mild aortic regurgitation. There is mild tricuspid regurgitation. The right ventricular systolic pressure is estimated to be at least 27 mmHg based on an estimated right atrial pressure of 3 mm Hg. Procedure: A two-dimensional transthoracic echocardiogram with color flow and Doppler was performed. The study quality was technically adequate. Comparison is made with the echocardiogram of 09/02/2009. The patient was in sinus rhythm with heart rates between 76-84 bpm during the exam. Left Ventricle: The left ventricle is normal in size. There is mild concentric left ventricular hypertrophy. Left ventricular ejection fraction is estimated to be 70 +/- 5%. Left ventricular systolic function is normal. There are no focal wall motion abnormalities. Diastolic parameters suggest a relaxation abnormality of the left ventricle, consistent with probable normal filling pressures. Right Ventricle: The right ventricle is normal in size and function. Atria: Both atria are normal in size. There is no Doppler evidence for an interatrial shunt. Mitral Valve: There is mild mitral annular calcification. There is no mitral regurgitation noted. Aortic Valve: The aortic valve is mildly calcified. There is mild to moderately reduced leaflet mobility. There is mild to moderate aortic stenosis. The calculated aortic valve area is 1.5 cm2. The aortic valve mean gradient is 21 mmHg. There is mild aortic regurgitation. Tricuspid Valve: The tricuspid valve is normal in structure and function. There is mild tricuspid regurgitation. The right ventricular systolic pressure is estimated to be at least 27 mmHg based on an estimated right atrial pressure of 3 mm Hg. Pulmonic Valve: The pulmonic valve is not well visualized. There is no pulmonic valvular regurgitation. Great Vessels: The aortic root is normal size. The ascending aorta could not be visualized. The IVC is of normal diameter and collapses greater than 50% with a sniff. This suggests a low right atrial pressure of 3 mm Hg. Pericardium/ Pleura There is no pericardial effusion. There is no pleural effusion. MMode/2D Measurements & Calculations LVIDd: 3.1 cm LVOT diam: 2.0 cm LVIDs: 2.2 cm Ao root diam: 2.9 cm FS: 29.6 % IVSd: 1.1 cm LVPWd: 1.1 cm LV bustillos. diameter/BSA (cm/m^2): 1.9 LV sys. diameter/BSA (cm/m^2): 1.3 LA A2 area: 14.7 cm2 RA area: 8.3 cm2 LA A4 area: 13.2 cm2 IVC diam: 2.1 cm LA length (vol): 4.4 cm LA vol: 37.0 ml LA vol index: 22.4 ml/m2 RVD1 (basal): 2.7 cm Doppler Measurements & Calculations Ao V2 max: 305.0 cm/sec LVOT Max Davy: 138.4 cm/sec Ao V2 mean: 215.3 cm/sec LV V1 max P.7 mmHg Ao max P.2 mmHg LV V1 VTI: 28.4 cm Ao mean P.9 mmHg FERMIN(I,D): 1.5 cm2 Ao V2 VTI: 63.6 cm FERMIN(V,D): 1.5 cm2 sev ratio: 0.45 FERMIN indexed to BSA (cm^2/m^2): 0.89 MV E max davy: 89.7 cm/sec TR max davy: 243.8 cm/sec MV A max davy: 119.2 cm/sec TR max P.8 mmHg MV E/A: 0.75 PA V2 max: 121.2 cm/sec Med Peak E' Davy: 7.8 cm/sec PA V2 mean: 82.9 cm/sec E/E' med: 11.5 PA mean P.1 mmHg Lat Peak E' Davy: 9.1 cm/sec PA pr(Accel): 35.4 mmHg E/E' lat: 9.9 E/e' average: 10.7 MV dec time: 0.32 sec SVLVOT): 93.1 ml Reading Physician:04:27 PM
== END ==
PROVIDERS: PCP Student in an Organized Health Care Education/Training Program; Referring Provider Student in an Organized Health Care Education/Training Program; Visit Provider Student in an Organized Health Care Education/Training Program
DX: I08.2 Rheumatic disorders of both aortic and tricuspid valves (principal); R01.1 Cardiac murmur, unspecified
CPT/HCPCS: 93306

== ENCOUNTER → 2021-05-22 11:07 | Outpatient (CLI) | payer MEDICARE, OTHER, SELFPAY ==
[2019-05-29 10:28] VITALS: BMI 21.7
--- NOTE | 2021-05-22 | DI.MG.S_ITS ---
BILATERAL DIGITAL SCREENING MAMMOGRAM 3D/2D WITH CAD: 05/22/2021 CLINICAL: Routine screening. Family history of breast cancer. Comparison is made to exams dated: 03/26/2020 mammogram, 02/06/2019 mammogram, and 02/04/2018 mammogram - [facility]. There are scattered fibroglandular elements in both breasts. Current study was also evaluated with a Computer Aided Detection (CAD) system. No significant masses, calcifications, or other findings are seen in either breast. There has been no significant interval change. IMPRESSION: NEGATIVE There is no mammographic evidence of malignancy. A 1 year screening mammogram is recommended. This exam was interpreted at Station ID: [id number]. NOTE: For mammograms, a report in lay terms will be sent to the patient. Approximately 15% of breast malignancies will not be visualized mammographically. In the management of a palpable breast mass, a negative mammogram must not discourage biopsy of a clinically suspicious lesion. Electronically Signed By: Corey Hill M.D., jr/tami:05/22/2021 11:39:43 letter sent: Normal Exam ACR BI-RADS Category 1: Negative 3341F
== END ==
PROVIDERS: PCP Student in an Organized Health Care Education/Training Program; Referring Provider Student in an Organized Health Care Education/Training Program; Visit Provider Student in an Organized Health Care Education/Training Program
DX: Z12.31 Encounter for screening mammogram for malignant neoplasm of breast (principal); Z80.3 Family history of malignant neoplasm of breast
CPT/HCPCS: 77063; 77067

== ENCOUNTER → 2022-06-14 15:53 | Outpatient (CLI) | payer MEDICARE, OTHER, SELFPAY ==
[2019-05-29 10:28] VITALS: BMI 21.7
--- NOTE | 2022-06-14 15:54 | DI.MG.S_ITS ---
BILATERAL DIGITAL SCREENING MAMMOGRAM 3D/2D WITH CAD: 06/14/2022 CLINICAL: Routine screening. Family history of breast cancer. Comparison is made to exams dated: 05/22/2021 mammogram, 03/26/2020 mammogram, and 02/06/2019 mammogram - [facility]. There are scattered areas of fibroglandular density in both breasts (category b / 25%-50% glandular tissue). Current study was also evaluated with a Computer Aided Detection (CAD) system. No significant masses, calcifications, or other findings are seen in either breast. There has been no significant interval change. IMPRESSION: NEGATIVE There is no mammographic evidence of malignancy. A 1 year screening mammogram is recommended. Based on the Tyrer Cuzick model (a risk assessment model) the patient's lifetime risk is 5.5% and her 10 year risk is 0.0%. According to the ACR, ACS, and NCCN guidelines, an annual breast MRI exam along with mammogram is recommended if the patient's lifetime risk is 20% or greater. This exam was interpreted at Station ID: [id number]. NOTE: For mammograms, a report in lay terms will be sent to the patient. Approximately 15% of breast malignancies will not be visualized mammographically. In the management of a palpable breast mass, a negative mammogram must not discourage biopsy of a clinically suspicious lesion. Electronically Signed By: Laura farooq/tami:06/15/2022 08:11:23 letter sent: Normal Exam ACR BI-RADS Category 1: Negative 3341F
== END ==
PROVIDERS: PCP Student in an Organized Health Care Education/Training Program; Referring Provider Student in an Organized Health Care Education/Training Program; Visit Provider Student in an Organized Health Care Education/Training Program
DX: Z12.31 Encounter for screening mammogram for malignant neoplasm of breast (principal); Z80.3 Family history of malignant neoplasm of breast
CPT/HCPCS: 77063; 77067

== ENCOUNTER → 2022-08-14 14:33 | Outpatient (CLI) | payer MEDICARE, OTHER, SELFPAY ==
[2019-05-29 10:28] VITALS: BMI 21.7
--- NOTE | 2022-08-14 | DI.CT.S_ITS ---
PROCEDURE: CT SINUS SCREEN WO CON INDICATIONS: Chronic pansinusitis TECHNIQUE: Noncontrast 3.0 mm axial images acquired from the frontal sinuses to the mid-sella, with coronal and sagittal reformats. For radiation dose reduction, the following was used: automated exposure control, adjustment of mA and/or kV according to patient size. COMPARISON: [facility], CT, CT HEAD/BRAIN WO CON, 07/21/2018, 2:28. FINDINGS: Image quality: Excellent. Maxillary Sinuses: There is near complete opacification of the right maxillary sinus. The medial wall of the right maxillary sinus is bowed medially and highly demineralized. Ethmoid Air Cells: No bony remodeling or destruction. Sinuses are clear. Sphenoid Sinuses: No bony remodeling or destruction. Sinuses are clear. Frontal Sinuses: No bony remodeling or destruction. Sinuses are clear. Ostiomeatal Complexes: There is complete opacification of the right ostiomeatal complex 6, which is completely demineralized. The left ostiomeatal complex is within normal limits. Miscellaneous: Visualized intra-orbital contents are normal. There is abnormal soft tissue seen involving the right nasal cavity. The right nasal turbinates are demineralized. There is extension of the soft tissue seen extending from right to left within the posterior nasopharynx. The nasal septum is mildly bowed to the left. IMPRESSION: Abnormal soft tissue can be seen within the right nasal cavity. Polyposis is suspected, although neoplasm is possible. There is complete opacification of the right ostiomeatal complex, which is completely demineralized. There is near complete opacification of the right maxillary sinus. The medial wall of the right maxillary sinus is highly demineralized and is bowed medially. Dictated by: Esau Garcia M.D. on 08/14/2022 at 14:44 Approved by: Esau Garcia M.D. on 08/14/2022 at 14:47
== END ==
PROVIDERS: PCP Family Medicine; Referring Provider Otolaryngology; Visit Provider Otolaryngology
DX: R22.0 Localized swelling, mass and lump, head (principal); J34.89 Other specified disorders of nose and nasal sinuses; J33.9 Nasal polyp, unspecified; J32.4 Chronic pansinusitis
CPT/HCPCS: 70486

== ENCOUNTER 2022-10-11 09:13 | Day surgery (SDC) | payer MEDICARE, OTHER, SELFPAY ==
[2019-05-29 10:28] VITALS: BMI 21.7
[2022-10-09 08:24] VITALS: BMI 21.3
[2022-10-11] VITALS (11 sets, daily range): BP systolic 124–189; BP diastolic 67–93; PULSE 81–96; RESP 16–21; TEMP 36.4–37.2; O2SAT 92–99; BMI 21.3
--- NOTE | 2022-10-11 | PATH_ITS ---
[facility] Accession Number: [id number] No. of containers..02 Tissue . 01 Material submitted: . PART A: nasal cavity - RIGHT INTERNASAL MASS PART B: sinus, maxillary - RIGTH MAXILLARY SINUS TUMOR ATTACHMENT . 01 Clinical history: . ENT . 01 Diagnosis: A-B. Right Internasal Mass, Right Maxillary Sinus Tumor Attachment: Sinonasal papilloma, inverted type. No evidence of malignancy. [facility] 10/16/2022 1053 Local . 01 Comment: Neoplasm is present and extends to the cauterized tissue edges in part B. . 01 Electronically signed: . Eileen Gray MD, Pathologist NPI- [id number] . 01 Gross description: . A. Received in formalin labeled with the patient's name, and intranasal mass and consists of flores soft tissue fragments aggregating to 6.0 x 4.0 x 2.0 cm. Sectioning reveals a flores soft cut surface. Ebd Teacher sections are submitted in cassettes A1-A5. . B. Received in formalin labeled with the patient's name, and maxillary sinus tumor attachment, and consists of mulitple fragments of flores soft tissue aggregating to 2.2 x 1.7 x 0.5 cm. The specimen is submitted entirely in cassette B1. /MRV 10/16/2022 1409 Local . 01 Pathologist provided ICD-10: D14.0 . 01 CPT . 363698, [id number] Specimen Comment: A courtesy copy of this report has been sent to [phone] Performed at: 01 [facility] [address] [place] [address] Suite [facility], [place], [place] [id number] MD Lalo Martinez MD Phone: [phone]
--- NOTE | 2022-10-11 09:33 | PM.PREOP ---
Pre-operative Note Interval Note History & Physical reviewed/Exam performed by Physician: Yes Changes to H&P: No
--- NOTE | 2022-10-11 09:34 | PM.OP.1 ---
Operative Date/Time/Diagnoses Date of procedure: 10/11/22 Time of procedure: 13:12 Pre-op diagnosis: RIGHT intranasal inverting papilloma, CRS, FLORINA, chronic tobacco use Post-op diagnosis: same Procedure & Clinicians Procedure: 1. Right endoscopic medial maxillectomy with tissue removal 2. Right endoscopic total ethmoidectomy Same procedure as scheduled: Yes Indications: 77 Year old female with the above diagnoses incompletely managed with medical therapy presents for the above procedure. Following discussion of the material risks benefits complications and alternatives, the patient elected to proceed. Surgeon: Beau Hall Anesthesia Type: General and Local Operative Notes Findings: Polypoid tumor with variable vascularity completely obstructing the right nasal cavity. The majority was resected piecemeal with sharp and blunt forceps, the separate specimen of the presumed tumor origin on the posterior maxillary sinus wall was sent separately. A branch of the sphenopalatine artery required cautery, as well as multiple smaller oozing vessels during the resection but primarily within the superior ethmoid cavity and posterior maxillary wall. There was dehiscent lamina papyracea on the right that was not manipulated. The tumor had markedly dilated the medial wall of the maxillary sinus and demineralized it such that at completion of tumor resection, a medial maxillectomy had been performed with a majority of the midportion of the inferior turbinate already absent. Specimen(s): other (Right intranasal tumor, inverting papilloma by prior biopsy) Estimated Blood Loss (mL): 250 Procedure in detail: Following identification and confirmation of consent, as well as preoperative Afrin nasal spray, the patient was brought to the operating room suite and placed in the supine position. General endotracheal anesthesia was administered. Following sterile prep and drape, under endoscopic guidance I infiltrated the anterior visible tumor and sharp and blunt resection was performed until the anterior insertion of the middle turbinate was visible and was infiltrated with local anesthetic. Sharp and blunt tumor removal was performed to eventually provide access to the nasal cavity although the tumor seemed to be emanating from within the maxillary sinus itself. Eventually the tumor filling the nasal cavity was resected including the portion in the nasopharynx that was obstructive on the left side. The uncinate process was partially remaining and this was resected with backbiting forceps. The ethmoid bulla and basal lamella of the middle turbinate were already ablated by tumor. Some septations within the anterior and posterior ethmoid cavity were removed with residual portion of the middle turbinate visible as well as the superior turbinate. Sphenoidotomy was not performed. The tumor was followed into the maxillary sinus and was found to be completely filling the sinus. I performed a very wide maxillary antrostomy although the natural os was already in continuity. I resected the middle and some posterior portion of the inferior turbinate as the area had been completely demineralized from the tumor. Tumor within the maxillary sinus required multiple angled endoscopes and instruments for removal until the presumed attachment point was visualized on the posterior maxillary sinus wall. I was eventually able to isolate the area with suction electrocautery before removing the area bluntly down to exposed bone which was cauterized in the focal area that looked most suspicious. The tumor area of attachment was sent separately to pathology from the other specimen. Suction electrocautery was used to cauterize a branch of the sphenopalatine near the posterior inferior edge of the allie antrostomy from the medial maxillectomy. I also cauterized a few areas of the posterior maxillary sinus wall and high in the ethmoids. The area was completely irrigated and hemostasis was assured. A few areas of concern were coated with a single layer of Surgicel. At completion, hemostasis was excellent, and sponge counts were correct. She was extubated in the operating room and taken to recovery room in stable condition without known complication. Complications: none Post-operative Condition: stable Disposition: same day surgery Plan for aftercare: Nasal saline every hour while awake, begin irrigations t.i.d. tomorrow, Tylenol alternating with Advil for pain control, oxycodone for breakthrough pain. Afrin for any bleeding. Elevate head of bed, no nose blowing, no straining for 2 weeks. Follow-up 1 week.
[2022-10-11] MEDS: OXYMETAZOLINE NASAL SPRAY 15 ML 2 SPRAYS NASAL ×2 (10:20→11:34)
[2022-10-11] MEDS: LACTATED RINGERS 1,000 ML 42 ML IV ×2 (10:21→12:14)
--- NOTE | 2022-10-11 11:10 | SUR.OPER ---
Supine on padded OR bed, head on gel doughnut, arms padded and tucked at sides, legs uncrossed, safety belt at thigh, tape over blanket over lower legs .
[2022-10-11] MEDS: LIDOCAINE 1% W/EPI 20 ML INJ (11:16)
[2022-10-11] MEDS: EPINEPHrine 1 MG/ML 6 MG TOP (11:19)
[2022-10-11] MEDS: LABETALOL 20 MG/4 ML SYRINGE 5 MG IV ×2 (13:56→14:16)
== END 2022-10-11 14:53 | disposition home or self-care (01) ==
PROVIDERS: PCP Family Medicine; Referring Provider Otolaryngology; Visit Provider Otolaryngology
PROC: (CPT 31231; principal; 2022-10-11 10:15)
DX: R22.0 Localized swelling, mass and lump, head (principal); J34.89 Other specified disorders of nose and nasal sinuses; J33.9 Nasal polyp, unspecified; J32.4 Chronic pansinusitis; F17.210 Nicotine dependence, cigarettes, uncomplicated
CPT/HCPCS: 31267; 31255; A9270; J0171; J1100; J2405; J2704; J3010

== ENCOUNTER → 2023-01-11 12:29 | Outpatient (CLI) | payer MEDICARE, OTHER, SELFPAY ==
[2019-05-29 10:28] VITALS: BMI 21.7
--- NOTE | 2023-01-11 | DI.ECHO.S_ITS ---
[place] [facility]---------+ [facility] +---------+ : : [address] : : : : [id number] : : : : Phone: [phone]---------+ Echocardiogram Report + + :Name: ANKITA MCGARRY Study Date: 01/11/2023 Height: 66 in : :[facility] ReadingLocation: Weight: 132 lb : : Gender: Female BSA: 1.7 m2 : :: 1945 Age: 77 yrs BP: 143/82 mmHg: :Reason For Study: AORTIC STENOSIS : :Ordering Physician: KARI, : :BART Performed By: Aubrie Maria : :Referring: BART PIERCE : + + Interpretation Summary The ejection fraction is estimated to be 65-70%. Left ventricular wall motion is normal. Diastolic parameters suggest probable normal left ventricular diastolic function and normal filling pressures. The right ventricle is normal in size and function. The right ventricular systolic pressure is estimated to be at least 26 mmHg based on an estimated right atrial pressure of 8 mm Hg. There is moderate to severe aortic stenosis, progressed from mild as noted on the 2020 study. Procedure: A two-dimensional transthoracic echocardiogram with color flow and Doppler was performed. The study quality was technically adequate. Comparison is made with the echocardiogram of 12/15/2020. The patient was in sinus rhythm with heart rates between 73-77 bpm during the exam. Left Ventricle: The left ventricle is normal in size and wall thickness. The ejection fraction is estimated to be 65-70%. Left ventricular wall motion is normal. Diastolic parameters suggest probable normal left ventricular diastolic function and normal filling pressures. Right Ventricle: The right ventricle is normal in size and function. Atria: The left atrial size is normal. Right atrial size is normal. There is no Doppler evidence for an interatrial shunt. Mitral Valve: There is mild mitral annular calcification. The mitral valve is normal in structure and function. There is trace mitral regurgitation. Aortic Valve: The aortic valve is moderately calcified. The peak aortic velocity is 3.6 m/sec. The aortic valve mean gradient is 31 mmHg. The calculated aortic valve area is 1.1 cm2. There is moderate to severe aortic stenosis. There is trace aortic regurgitation. Tricuspid Valve: The tricuspid valve is normal in structure and function. There is mild tricuspid regurgitation. The right ventricular systolic pressure is estimated to be at least 26 mmHg based on an estimated right atrial pressure of 8 mm Hg. Pulmonic Valve: The pulmonic valve leaflets are thin and pliable; valve motion is normal. There is no pulmonic valvular regurgitation. Great Vessels: The aortic root is normal size. The dimensions of the ascending aorta are normal. The IVC is dilated (diameter is greater than 2.1 cm) yet it collapses greater than 50% with a sniff. This suggests a right atrial pressure of 8 mm Hg. Pericardium/ Pleura There is no pericardial effusion. There is no pleural effusion. MMode/2D Measurements & Calculations LVIDd: 4.4 cm LVOT diam: 2.1 cm LVIDs: 2.8 cm Ao root diam: 2.9 cm FS: 36.6 % asc Aorta Diam: 3.6 cm IVSd: 0.83 cm Ao Arch Diam (Prox Trans): 2.2 cm LVPWd: 0.75 cm LV bustillos. diameter/BSA (cm/m^2): 2.6 LV sys. diameter/BSA (cm/m^2): 1.7 LA A2 area: 17.3 cm2 RA long axis: 4.4 cm LA A4 area: 12.7 cm2 RA area: 14.0 cm2 LA length (vol): 5.0 cm RA vol: 37.5 ml LA vol: 37.7 ml RA : 22.4 ml/m2 LA vol index: 22.5 ml/m2 IVC diam: 2.1 cm RVD1 (basal): 3.2 cm RVD2 (mid): 2.6 cm TAPSE: 2.7 cm Doppler Measurements & Calculations Ao V2 max: 355.9 cm/sec LVOT Max Davy: 122.5 cm/sec Ao V2 mean: 269.5 cm/sec LV V1 max P.0 mmHg Ao max P.2 mmHg LV V1 VTI: 27.1 cm Ao mean P.2 mmHg FERMIN(I,D): 1.1 cm2 Ao V2 VTI: 81.3 cm FERMIN(V,D): 1.1 cm2 sev ratio: 0.33 FERMIN indexed to BSA (cm^2/m^2): 0.66 AI P1/2t: 834.3 msec AI dec slope: 122.0 cm/sec2 MV E max davy: 96.5 cm/sec TR max davy: 212.6 cm/sec MV A max davy: 118.0 cm/sec TR max P.1 mmHg MV E/A: 0.82 PA V2 max: 123.1 cm/sec Med Peak E' Davy: 7.4 cm/sec PA V2 mean: 89.7 cm/sec E/E' med: 13.0 PA mean P.5 mmHg Lat Peak E' Davy: 9.4 cm/sec PA pr(Accel): 37.9 mmHg E/E' lat: 10.2 E/e' average: 11.6 MV dec time: 0.31 sec SV(LVOT): 90.0 ml Reading Physician:JODI
== END ==
PROVIDERS: PCP Registered Nurse; Referring Provider Registered Nurse; Visit Provider Registered Nurse
DX: I35.0 Nonrheumatic aortic (valve) stenosis (principal)
CPT/HCPCS: 93306

== ENCOUNTER → 2023-07-25 15:36 | Outpatient (CLI) | payer MEDICARE, OTHER, SELFPAY ==
[2019-05-29 10:28] VITALS: BMI 21.7
--- NOTE | 2023-07-25 | DI.MG.S_ITS ---
BILATERAL DIGITAL SCREENING MAMMOGRAM 3D/2D WITH CAD: 07/25/2023 CLINICAL: Routine screening. Family history of breast cancer. Comparison is made to exams dated: 06/14/2022 mammogram, 05/22/2021 mammogram, and 03/26/2020 mammogram - [facility]. There are scattered areas of fibroglandular density in both breasts (category b / 25%-50% glandular tissue). Current study was also evaluated with a Computer Aided Detection (CAD) system. There are benign post operative findings in the right breast. No significant masses, calcifications, or other findings are seen in either breast. IMPRESSION: BENIGN There is no mammographic evidence of malignancy. A 1 year screening mammogram is recommended. Based on the Tyrer Cuzick model (a risk assessment model) the patient's lifetime risk is 4.9% and her 10 year risk is 0.0%. According to the ACR, ACS, and NCCN guidelines, an annual breast MRI exam along with mammogram is recommended if the patient's lifetime risk is 20% or greater. This exam was interpreted at Station ID: [id number]. NOTE: For mammograms, a report in lay terms will be sent to the patient. Approximately 15% of breast malignancies will not be visualized mammographically. In the management of a palpable breast mass, a negative mammogram must not discourage biopsy of a clinically suspicious lesion. Electronically Signed By: Palak Doshi M.D., PH.D ana/tami:07/25/2023 23:38:38 letter sent: Normal Exam ACR BI-RADS Category 2: Benign Finding(s) 3342F
== END ==
PROVIDERS: PCP Registered Nurse; Referring Provider Registered Nurse; Visit Provider Registered Nurse
DX: Z12.31 Encounter for screening mammogram for malignant neoplasm of breast (principal); Z80.3 Family history of malignant neoplasm of breast
CPT/HCPCS: 77063; 77067

== ENCOUNTER → 2024-08-26 13:56 | Outpatient (CLI) | payer MEDICARE, OTHER, SELFPAY ==
[2019-05-29 10:28] VITALS: BMI 21.7
--- NOTE | 2024-08-26 | DI.MG.S_ITS ---
BILATERAL DIGITAL SCREENING MAMMOGRAM 3D/2D WITH CAD: 08/26/2024 CLINICAL: Routine screening. Family history of breast cancer. Comparison is made to exams dated: 07/25/2023 mammogram, 06/14/2022 mammogram, 05/22/2021 mammogram, 03/26/2020 mammogram, and 02/06/2019 mammogram - [facility]. There are scattered areas of fibroglandular density (category b / 25%-50% glandular tissue). Current study was also evaluated with a Computer Aided Detection (CAD) system. There are benign post operative findings in the right breast. No significant masses, calcifications, or other findings are seen in either breast. There has been no significant interval change. IMPRESSION: BENIGN There is no mammographic evidence of malignancy. A 1 year screening mammogram is recommended. Based on the Tyrer Cuzick model (a risk assessment model) the patient's lifetime risk is 4.3% and her 10 year risk is 0.0%. According to the ACR, ACS, and NCCN guidelines, an annual breast MRI exam along with mammogram is recommended if the patient's lifetime risk is 20% or greater. This exam was interpreted at Station ID: [id number]. NOTE: For mammograms, a report in lay terms will be sent to the patient. Approximately 15% of breast malignancies will not be visualized mammographically. In the management of a palpable breast mass, a negative mammogram must not discourage biopsy of a clinically suspicious lesion. Electronically Signed By: Palak Doshi M.D., Ph.D. ana/tami:08/26/2024 14:32:41 letter sent: Normal Exam ACR BI-RADS Category 2: Benign
== END ==
LOC: MAMMO 13:59
PROVIDERS: PCP Registered Nurse; Referring Provider Registered Nurse; Visit Provider Registered Nurse
DX: Z12.31 Encounter for screening mammogram for malignant neoplasm of breast (principal); Z80.3 Family history of malignant neoplasm of breast
CPT/HCPCS: 77063; 77067

== ENCOUNTER 2024-09-08 12:24 | Inpatient (IN) | payer MEDICARE, OTHER, SELFPAY ==
[2019-05-29 10:28] VITALS: BMI 21.7
[2024-09-08] VITALS (25 sets, daily range): BP systolic 87–141; BP diastolic 47–84; PULSE 120–134; RESP 18–37; TEMP 36.6–37.2; O2SAT 92–100; BMI 20.5
--- NOTE | 2024-09-08 12:38 | DI.RAD.S_ITS ---
PROCEDURE: XR HUMERUS RT 2V INDICATIONS: fall/pain TECHNIQUE: 3 views of the humerus were acquired. COMPARISON: None. FINDINGS: Bones: Anterior inferior shoulder dislocation. Displaced fracture fragments of the humeral head. No suspicious bony lesions. Soft tissues: No suspicious soft tissue calcifications. IMPRESSION: Anterior inferior shoulder dislocation. Displaced humeral head fracture. Dictated by: Scott Wilkerson M.D. on 09/08/2024 at 13:28 Approved by: Scott Wilkerson M.D. on 09/08/2024 at 13:30
--- NOTE | 2024-09-08 12:38 | DI.RAD.S_ITS ---
PROCEDURE: XR ELBOW RT 2V INDICATIONS: fall/pain TECHNIQUE: 2 views of the elbow were acquired. COMPARISON: None. FINDINGS: Bones: No fractures or dislocations. No suspicious bony lesions. Soft tissues: No elbow joint effusion. No suspicious soft tissue calcifications. IMPRESSION: No acute osseous abnormality. If pain persists with conservative management, consider repeat x-ray in 10-14 days or cross-sectional imaging. Dictated by: Scott Wilkerson M.D. on 09/08/2024 at 13:26 Approved by: Scott Wilkerson M.D. on 09/08/2024 at 13:28
--- NOTE | 2024-09-08 12:38 | DI.CT.S_ITS ---
PROCEDURE: CT HEAD/BRAIN WO CON INDICATIONS: fall/pain TECHNIQUE: Noncontrast 4.5 mm thick angled axial sections acquired from the foramen magnum to the vertex, with coronal and sagittal reformats. For radiation dose reduction, the following was used: automated exposure control, adjustment of mA and/or kV according to patient size. COMPARISON: [facility], CT, CT FACIAL BONES WO CON, 09/08/2024, 12:59. [facility], CT, CT CERVICAL SPINE WO CON, 09/08/2024, 12:59. [facility], CT, CT HEAD/BRAIN WO CON, 07/21/2018, 2:28. FINDINGS: Image quality: Diagnostic. CSF spaces: Basal cisterns are patent. No extra-axial fluid collections. The ventricles are symmetric in size and shape. Brain: There is a moderate degree of subarachnoid hemorrhage seen along the anterior aspects of both frontal lobes, right worse than left. No intracranial masses. There is cerebral volume loss for age, with resultant ventricular and sulcal prominence. There are periventricular and deep white matter chronic small vessel ischemic changes. There is intracranial internal carotid artery atherosclerosis. Symmetric calcification can be seen involving the basal ganglia, which is considered to be normal for age. Skull and face: Right-sided facial laceration is partially seen, with soft tissue gas on the right. Calvarium and visualized facial bones appear intact, without suspicious lesions. Sinuses: Visualized sinuses and mastoids are clear. Prior right-sided antrectomy change can be seen. IMPRESSION: Moderate subarachnoid hemorrhage can be seen anteriorly, right worse than left. There is a right-sided facial laceration, with right-sided soft tissue gas present. Note: Case discussed by telephone with Dr. Harrison at 1:38 p.m. Colon time on September 08, 2024. Dictated by: Esau Garcia M.D. on 09/08/2024 at 12:36 Approved by: Esau Garcia M.D. on 09/08/2024 at 12:39
--- NOTE | 2024-09-08 12:38 | DI.RAD.S_ITS ---
PROCEDURE: XR CHEST 1V INDICATIONS: chest pain TECHNIQUE: One view of the chest was acquired. COMPARISON: [facility], [place], XR HUMERUS RT 2V, 09/08/2024, 12:49. [facility], [place], CHEST 2 VIEW, 08/22/2017, 12:59. FINDINGS: Surgical changes and devices: None. Lungs and pleura: Lungs are clear. No pleural effusions or pneumothorax. Mediastinum: Mediastinal contours appear normal. Heart size is normal. Bones and chest wall: Right shoulder anterior-inferior dislocation with a displaced Hill-Sachs fracture fragment and osseous Bankart lesion. Overlying soft tissues appear unremarkable. IMPRESSION: 1. No acute cardiothoracic process. 2. Right anterior inferior shoulder dislocation. Dictated by: Roe Maxwell M.D. on 09/08/2024 at 13:32 Approved by: Roe Maxwell M.D. on 09/08/2024 at 13:33
--- NOTE | 2024-09-08 12:38 | DI.CT.S_ITS ---
PROCEDURE: CT FACIAL BONES WO [facility] INDICATIONS: fall/pain TECHNIQUE: Noncontrast 2.5 mm thick axial images acquired from the mandible through the frontal sinuses, with coronal and sagittal reformatting. For radiation dose reduction, the following was used: automated exposure control, adjustment of mA and/or kV according to patient size. COMPARISON: [facility], CT, CT SINUS SCREEN WO CON, 08/14/2022, 14:39. [facility], CT, CT CERVICAL SPINE WO CON, 09/08/2024, 12:59. [facility], CT, CT HEAD/BRAIN WO CON, 09/08/2024, 12:59. FINDINGS: Image quality: Excellent. Bones and teeth: Orbital sauer are intact. Sinus sauer show no fracture or deformity. Nasal bones and septum are intact. Visualized portions of the mandible demonstrate no fractures or subluxation. Zygomatic arches are intact. Pterygoid plates are intact. Visualized portions of the skull base and auditory canals are intact. Sinuses: Prior right-sided antrectomy change can be seen. Paranasal sinuses are aerated, without fluid levels, mucosal thickening, or mucoceles. Mastoid air cells are aerated. Soft tissues: Right-sided facial laceration can be seen, with right-sided soft tissue gas, including within the right periorbital region. A mild degree of intraorbital gas is seen on the right anteriorly. Vascular: Visualized vascular structures appear normal in the absence of contrast. Bony vascular foramina and canals are intact. IMPRESSION: Right-sided facial laceration, with right-sided soft tissue gas can including within the right orbit. No displaced facial bone fracture is identified. Prior right-sided antrectomy change can be seen. Dictated by: Esau Garcia M.D. on 09/08/2024 at 12:39 Approved by: Esau Garcia M.D. on 09/08/2024 at 12:42
--- NOTE | 2024-09-08 12:52 | EKG_ITS ---
[address] [address] [address] [address] Test Date: 2024-09-08 Pat Name: Danuta Delgadillo Department: [facility] Room: Gender: Female [employer]: : 1945 Requested By: Order Number: [id number] Reading MD: Measurements Intervals Hunter Rate: 122 P: 63 IN: 196 QRS: 57 QRSD: 72 T: 82 QT: 286 QTc: 407 Interpretive Statements Sinus tachycardia Anterior infarct , age undetermined
--- NOTE | 2024-09-08 13:00 | DI.CT.S_ITS ---
PROCEDURE: CT CERVICAL SPINE WO CON INDICATIONS: fall/pain TECHNIQUE: Noncontrast 3 mm thick sections acquired from the skull base to the T4 level. Sagittal and coronal reformats were then constructed. For radiation dose reduction, the following was used: automated exposure control, adjustment of mA and/or kV according to patient size. COMPARISON: [facility], CT, CT HEAD/BRAIN WO CON, 09/08/2024, 12:59. [facility], CT, CT FACIAL BONES WO CON, 09/08/2024, 12:59. FINDINGS: Image quality: Excellent. Bones: No fractures or dislocations. Visualized superior ribs are intact. Focal degenerative change is seen involving the C1-C2 interface anteriorly. There is moderate disc space narrowing seen at C3-C4 and C4-C5. Moderate to severe disc space narrowing can be seen at C5-C6, with associated endplate irregularity and sclerosis. Posteriorly directed endplate osteophytes can be seen at C5-C6. Multiple levels of facet hypertrophy can be seen, with degrees of fusion. Soft tissues: Prevertebral soft tissues are normal in thickness. No paravertebral hematomas. No apical pneumothoraces. Atherosclerotic calcification is noted. Mild emphysematous changes can be seen at the lung apices. IMPRESSION: No displaced fracture or traumatic subluxation. Cervical spine degenerative changes are seen, which are worst at C5-C6. Dictated by: Esau Garcia M.D. on 09/08/2024 at 12:34 Approved by: Esau Garcia M.D. on 09/08/2024 at 12:36
[2024-09-08 13:48] LABS: Add Manual Diff / Slide Review NO; Basophils Absolute Auto 100 /uL (0-100); Basophils Percent Auto 0.4 % (0-2); Eosinophils Absolute Auto 0 /uL (0-450); Hematocrit 35.8 % (36-46); Hemoglobin 11.6 g/dL (12.0-16.0); Lymphocytes Absolute Auto 1000 /uL (1100-4500); Lymphocytes Percent Auto 4.7 % (25-40); Mean Corpuscular HGB Conc 32.4 % (30-36); Mean Corpuscular Hemoglobin 29.9 PG (26-34); Mean Corpuscular Volume 92.1 fL (80-100); Monocytes Absolute Auto 1400 /uL (0-900); Monocytes Percent Auto 6.5 % (3-14); Neutrophils Absolute Auto 19500 /uL (1500-7000); Neutrophils Percent Auto 88.4 % (50-75); Platelet Count 246 X10^3/uL (150-400); Red Blood Cell Count 3.88 X10^6/uL (4.0-5.2); Red Cell Distribution Width 14.5 % (11.6-14.8); White Blood Cell Count 22.1 X10^3/uL (4.5-11.0)
[2024-09-08 14:01] LABS: INR 1.1 (0.9-1.3); Prothrombin Time 12.5 SECONDS (9.4-12.5)
[2024-09-08 14:04] LABS: PTT Partial Thromboplastin Tim 25 SECONDS (25.1-36.5)
--- NOTE | 2024-09-08 14:49 | ED_ITS ---
HPI - Fall General Chief Complaint: Fall Stated Complaint: Fall, eye and arm injury, no blood thinners Time Seen by Provider: 09/08/24 14:14 Source: patient Mode of arrival: Wheelchair History of Present Illness HPI Narrative: Patient drove self here. Complains of injury to the right side of the head complains of right shoulder pain. She states she walked on her back porch and slipped on ice and fell down. Patient is not on any blood thinners. No loss of consciousness. Tetanus up-to-date. Has laceration to the right temporal area. Has deformity to the right shoulder. Vital signs noted. Denies any recent illness fever chills cough cold congestion nausea vomiting diarrhea no black or bloody stools. Related Data Home Medications Medication Instructions Recorded Confirmed atorvastatin 10 mg tablet (Lipitor) 10 mg PO QAM ##0 06/17/17 09/08/24 lisinopril 10 mg tablet 10 mg PO QDAY ##0 06/17/17 09/08/24 estradiol 14 mcg/24 hr weekly 1 patch topical QWEEK 09/08/24 09/08/24 transdermal patch (Menostar) progesterone micronized 200 mg 200 mg PO SEEINSTR 09/08/24 09/08/24 capsule Previous Rx's Medication Instructions Recorded ibuprofen 400 mg tablet 400 mg PO Q4H inflammation #60 tabs 05/30/19 Allergies Allergy/AdvReac Type Severity Reaction Status Date / Time No Known Drug Allergies Allergy Verified 10/11/22 10:24 Review of Systems Review of Systems Narrative: GENERAL: Negative chills, fatigue, malaise, fever, sweats. HEENT: Negative sinus pain, ear pain, sore throat RESPIRATORY: Negative dyspnea, cough CARDIOVASCULAR: Negative chest pain, palpitations GASTROINTESTINAL: Negative nausea, vomiting, abdominal pain : Negative dysuria, frequency, hematuria MUSCULOSKELETAL: Positive muscle or bony pain SKIN: Negative rash, skin lesions, positive skin injury NEUROLOGIC: Negative weakness, numbness ROS Unobtainable: All systems reviewed & are unremarkable except as noted in HPI and below Patient History Medical History (Updated 09/08/24 @ 18:15 by Merle Sheriff MD) Daily consumption of alcohol Chronic pansinusitis Nasal polyp Nasal obstruction Easy bruisability Osteoarthritis HLD (hyperlipidemia) HTN (hypertension) Surgical History (Updated 09/08/24 @ 18:16 by Merle Sheriff MD) History of total knee arthroplasty 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 Right periorbital ecchymosis. Laceration to the right temporal area. EYES: Pupils equal round ENT: Mucous membranes moist. NECK: Trachea midline. No midline tenderness or step-off. CARDIOVASCULAR: Regular rate and rhythm RESPIRATORY: Clear to auscultation. Breath sounds equal bilaterally. No wheezes, rales, or rhonchi. GASTROINTESTINAL: Abdomen soft, non-tender EXTREMITIES: Tender right shoulder with drop off. Limited range of motion due to pain. Strong bilateral first line supervisor and radial pulses. Bruising to the right elbow and able to flex and extend at the elbow and supinate and pronate. Nontender bilateral pelvis hips knees ankles BACK: No flank tenderness. NEURO: AOx4. Clear speech no facial droop strong equal first line supervisor SKIN: Warm and dry PSYCH: Not anxious, is cooperative Initial Vital Signs Initial Vital Signs: Vital Signs Temperature 98 F 09/08/24 12:27 Pulse Rate 120 H 09/08/24 12:27 Respiratory Rate 20 09/08/24 12:27 Blood Pressure 90/52 L 09/08/24 12:27 Pulse Oximetry 95 09/08/24 12:27 Oxygen Delivery Method Room Air 09/08/24 12:27 Procedures Laceration Repair Laceration 1: Time of procedure: 17:16 Site: face Side (If applicable): right Size (cm): 2 Description: linear Depth: simple, single layer Local Anesthetic: lidocaine 1% Amount of anesthesia used (mL): 2 Pre-repair: wound explored, irrigated extensively and deep structures intact Skin layer closed with: nylon Skin layer suture size: 5-0 Number of sutures: 5 Technique: simple, interrupted Orthopedic Joint Reduction Joint #1: Time of procedure: 16:41 Time Out Performed: Yes Side: right Joint Reduction Location: shoulder Analgesia: procedural sedation Shoulder Technique Used (if applicable): traction/counter-traction Technique used: traction/counter-traction Post-reduction neuro exam: intact Post-reduction vascular: intact Post Reduction X-Ray Obtained: Yes Post Reduction X-Ray Results: reduced Patient Tolerated Procedure: Well Additional Comments: Sling applied, no splint needed. Course Orders Ordered: Acetaminophen (Acetaminophen 325 Mg Tablet) 650 mg PO Q6H PRN PRN Reason: Pain, Mild (1-3) Hydrocodone Bitart/Acetaminophen (Hydrocodone/Acet 5/325 Tablet) 1 tab PO Q4H PRN PRN Reason: Pain, Moderate (4-6) Last Admin: 09/09/24 00:16 Dose: 1 tab Documented By: ESTHELA Hydrocodone Bitart/Acetaminophen (Hydrocodone/Acet 5/325 Tablet) 2 tab PO Q4H PRN PRN Reason: Pain, Severe (7-10) Last Admin: 09/08/24 20:40 Dose: 2 tab Documented By: ESTHELA Atorvastatin Calcium (Atorvastatin 20 Mg Tablet) 10 mg PO BEDTIME [facility] Last Admin: 09/08/24 20:43 Dose: Not Given Documented By: ESTHELA Docusate Sodium (Docusate 100 Mg Capsule) 100 mg PO BID [facility] Last Admin: 09/08/24 20:42 Dose: 100 mg Documented By: ESTHELA Sodium Chloride (Normal Saline 0.9%) 1,000 mls @ 100 mls/hr IV CONT [facility] Last Admin: 09/09/24 05:56 Dose: 100 mls/hr Documented By: Infusion: 09/09/24 05:56 Dose: Infused Documented By: Admin: 09/08/24 20:43 Dose: 100 mls/hr Documented By: ESTHELA Naloxone HCl (Naloxone 0.4 Mg/Ml Vial) 0.2 mg IV Q2MIN PRN PRN Reason: Opiate Reversal Ondansetron HCl (Ondansetron 4 Mg/2 Ml Inj) 4 mg IV Q8HR PRN PRN Reason: Nausea And Vomiting Discontinued Medications Atorvastatin Calcium (Atorvastatin 20 Mg Tablet) 10 mg PO DAILY [facility] Last Admin: 09/08/24 22:47 Dose: Not Given Documented By: ESTHELA Bacitracin (Bacitracin Oint 0.9 Gm Pckt) 1 applic TOP NOW ONE Stop: 09/08/24 17:11 Last Admin: 09/08/24 17:36 Dose: 1 applic Documented By: THEA Sodium Chloride (Normal Saline 0.9%) 1,000 mls @ 1,000 mls/hr IV BOLUS ONE Stop: 09/08/24 15:14 Last Infusion: 09/08/24 16:11 Dose: Infused Documented By: Admin: 09/08/24 14:57 Dose: 1,000 mls/hr Documented By: THEA Propofol (Propofol 200 Mg/20 Ml Vial) 55 mg 1 mg/kg (55 mg) IV NOW ONE Stop: 09/08/24 15:50 Last Admin: 09/08/24 16:10 Dose: 55 mg Documented By: THEA Propofol (Propofol 200 Mg/20 Ml Vial) 110 mg 2 mg/kg (110 mg) IV NOW ONE Stop: 09/08/24 16:48 Last Admin: 09/08/24 16:33 Dose: 100 mg Documented By: THEA Vital Signs Vital signs: Vital Signs - 8 hr 09/08/24 12:27 09/08/24 13:58 09/08/24 14:01 Temperature 98 F Pulse Rate 120 H 126 H 127 H Respiratory Rate 20 30 H 26 H Blood Pressure 90/52 L Pulse Oximetry 95 94 92 Oxygen Delivery Method Room Air 09/08/24 14:30 09/08/24 15:00 09/08/24 15:24 Temperature Pulse Rate 127 H 129 H Respiratory Rate 28 H 24 Blood Pressure 141/64 H Pulse Oximetry 95 98 Oxygen Delivery Method 09/08/24 15:24 09/08/24 15:30 09/08/24 15:30 Temperature Pulse Rate 134 H 134 H Respiratory Rate 27 H 26 H Blood Pressure 137/63 Pulse Oximetry 96 96 Oxygen Delivery Method 09/08/24 16:00 09/08/24 16:00 09/08/24 16:07 Temperature Pulse Rate 133 H 132 H Respiratory Rate 26 H 29 H Blood Pressure 113/57 L Pulse Oximetry 97 95 Oxygen Delivery Method 09/08/24 16:07 09/08/24 16:10 09/08/24 16:10 Temperature Pulse Rate 131 H Respiratory Rate 26 H Blood Pressure 95/47 L 87/51 L Pulse Oximetry 96 Oxygen Delivery Method 09/08/24 16:15 09/08/24 16:15 09/08/24 16:20 Temperature Pulse Rate 129 H Respiratory Rate 26 H Blood Pressure 91/50 L 115/59 L Pulse Oximetry 97 Oxygen Delivery Method 09/08/24 16:20 09/08/24 16:25 09/08/24 16:25 Temperature Pulse Rate 132 H 131 H Respiratory Rate 23 25 H Blood Pressure 108/56 L Pulse Oximetry 97 97 Oxygen Delivery Method 09/08/24 16:30 09/08/24 16:30 09/08/24 16:35 Temperature Pulse Rate 130 H Respiratory Rate 25 H Blood Pressure 116/59 L 119/57 L Pulse Oximetry 100 Oxygen Delivery Method 09/08/24 16:35 09/08/24 16:40 09/08/24 16:40 Temperature Pulse Rate 132 H 132 H Respiratory Rate 37 H 32 H Blood Pressure 103/55 L Pulse Oximetry 96 97 Oxygen Delivery Method 09/08/24 16:45 09/08/24 16:45 09/08/24 16:50 Temperature Pulse Rate 131 H 133 H Respiratory Rate 28 H 21 Blood Pressure 98/55 L Pulse Oximetry 98 98 Oxygen Delivery Method 09/08/24 16:50 09/08/24 16:55 09/08/24 16:55 Temperature Pulse Rate 133 H Respiratory Rate 24 Blood Pressure 118/65 114/66 Pulse Oximetry 94 Oxygen Delivery Method 09/08/24 17:00 09/08/24 17:00 Temperature Pulse Rate 133 H Respiratory Rate 27 H Blood Pressure 121/65 Pulse Oximetry 95 Oxygen Delivery Method - Fall Lab Data 09/09/24 06:00 09/09/24 06:00 Labs: Lab Results 09/08/24 09/08/24 Range/Units 13:37 14:35 WBC 22.1 H (4.5-11.0) X10^3/uL RBC 3.88 L (4.0-5.2) X10^6/uL Hgb 11.6 L (12.0-16.0) g/dL Hct 35.8 L (36-46) % MCV 92.1 (80-100) fL MCH 29.9 (26-34) PG MCHC 32.4 (30-36) % RDW 14.5 (11.6-14.8) % Plt Count 246 (150-400) X10^3/uL Neut % (Auto) 88.4 H (50-75) % Lymph % (Auto) 4.7 L (25-40) % [place] % (Auto) 6.5 (3-14) % Eos % (Auto) 0.0 L (2-4) % Baso % (Auto) 0.4 (0-2) % Neut # (Auto) 75435 H (2772-3894) /uL Lymph # (Auto) 1000 L (4507-0253) /uL [place] # (Auto) 1400 H (0-900) /uL Eos # (Auto) 0 (0-450) /uL Baso # (Auto) 100 (0-100) /uL PT 12.5 (9.4-12.5) SECONDS INR 1.1 (0.9-1.3) APTT 25 L (25.1-36.5) SECONDS Sodium 134 L (137-145) mmol/L Potassium 5.0 (3.4-5.1) mmol/L Chloride 101 (98-107) mmol/L Carbon Dioxide 22 (22-32) mmol/L BUN 34 H (7-17) mg/dL Creatinine 1.34 H (0.52-1.04) mg/dL Estimated GFR 40 L (>60) mL/min BUN/Creatinine Ratio 25.4 H (6-22) Glucose 108 (80-110) mg/dL Calcium 9.1 (8.4-10.2) mg/dL Magnesium 1.7 (1.6-2.3) mg/dL Total Bilirubin 1.2 (0.2-1.3) mg/dL AST 288 H (14-36) IU/L ALT 216 H (<35) IU/L Alkaline Phosphatase 72 (38-126) U/L Total Creatine Kinase 3188 H (30-135) U/L Troponin I < 0.012 (0.01-0.034) ng/mL NT-Pro-B Natriuret Pep 795 H (<450) pg/mL Total Protein 6.9 (6.3-8.2) g/dL Albumin 4.2 (3.5-5.0) g/dL Globulin 2.7 (1.7-4.1) g/dL Albumin/Globulin Ratio 1.6 (1.0-2.8) Lipase 67 (23-300) U/L Ethyl Alcohol < 10 ( - 10) mg/dL Point of Care Testing Test Results Not applicable Imaging Data Chest x-ray: Radiologist's Impression: [address] [address] XRay Report Signed Patient: Danuta Delgadillo MR#: [id number] : 1945 Acct:[id number] Age/Sex: 79 / F Date of Service: 09/08/24 Loc: ED Accession Number: [id number] Procedure: XR chest 1V Ordering Provider: Isaiah Harrison MD PROCEDURE: XR CHEST 1V INDICATIONS: chest pain TECHNIQUE: One view of the chest was acquired. COMPARISON: [facility], , XR HUMERUS RT 2V, 09/08/2024, 12:49. [facility], CR, CHEST 2 VIEW, 08/22/2017, 12:59. FINDINGS: Surgical changes and devices: None. Lungs and pleura: Lungs are clear. No pleural effusions or pneumothorax. Mediastinum: Mediastinal contours appear normal. Heart size is normal. Bones and chest wall: Right shoulder anterior-inferior dislocation with a displaced Hill-Sachs fracture fragment and osseous Bankart lesion. Overlying soft tissues appear unremarkable. IMPRESSION: 1. No acute cardiothoracic process. 2. Right anterior inferior shoulder dislocation. Dictated by: Roe Maxwell M.D. on 09/08/2024 at 13:32 Approved by: Roe Maxwell M.D. on 09/08/2024 at 13:33 CT scan - head: Radiologist's Impression: [address] [address] [address] Scan Report Signed Patient: Danuta Delgadillo MR#: [id number] : 1945 Acct:[id number] Age/Sex: 79 / F Date of Service: 09/08/24 Loc: ED Accession Number: [id number] Procedure: CT head/brain wo con Ordering Provider: Isaiah Harrison MD PROCEDURE: CT HEAD/BRAIN WO CON INDICATIONS: fall/pain TECHNIQUE: Noncontrast 4.5 mm thick angled axial sections acquired from the foramen magnum to the vertex, with coronal and sagittal reformats. For radiation dose reduction, the following was used: automated exposure control, adjustment of mA and/or kV according to patient size. COMPARISON: [facility], CT, CT FACIAL BONES WO CON, 09/08/2024, 12:59. [facility], CT, CT CERVICAL SPINE WO CON, 09/08/2024, 12:59. [facility], CT, CT HEAD/BRAIN WO CON, 07/21/2018, 2:28. FINDINGS: Image quality: Diagnostic. CSF spaces: Basal cisterns are patent. No extra-axial fluid collections. The ventricles are symmetric in size and shape. Brain: There is a moderate degree of subarachnoid hemorrhage seen along the anterior aspects of both frontal lobes, right worse than left. No intracranial masses. There is cerebral volume loss for age, with resultant ventricular and sulcal prominence. There are periventricular and deep white matter chronic small vessel ischemic changes. There is intracranial internal carotid artery atherosclerosis. Symmetric calcification can be seen involving the basal ganglia, which is considered to be normal for age. Skull and face: Right-sided facial laceration is partially seen, with soft tissue gas on the right. Calvarium and visualized facial bones appear intact, without suspicious lesions. Sinuses: Visualized sinuses and mastoids are clear. Prior right-sided antrectomy change can be seen. IMPRESSION: Moderate subarachnoid hemorrhage can be seen anteriorly, right worse than left. There is a right-sided facial laceration, with right-sided soft tissue gas present. Note: Case discussed by telephone with Dr. Harrison at 1:38 p.m. [place] time on September 08, 2024. Dictated by: Esau Garcia M.D. on 09/08/2024 at 12:36 Approved by: Esau Garcia M.D. on 09/08/2024 at 12:39 CT - cervical spine: Radiologist's Impression: [address] [address] [address] Scan Report Signed Patient: Danuta Delgadillo MR#: [id number] : 1945 Acct:[id number] Age/Sex: 79 / F Date of Service: 09/08/24 Loc: ED Accession Number: [id number] Procedure: CT cervical spine wo con Ordering Provider: Isaiah Harrison MD PROCEDURE: CT CERVICAL SPINE WO CON INDICATIONS: fall/pain TECHNIQUE: Noncontrast 3 mm thick sections acquired from the skull base to the T4 level. Sagittal and coronal reformats were then constructed. For radiation dose reduction, the following was used: automated exposure control, adjustment of mA and/or kV according to patient size. COMPARISON: [facility], CT, CT HEAD/BRAIN WO CON, 09/08/2024, 12:59. [facility], CT, CT FACIAL BONES WO CON, 09/08/2024, 12:59. FINDINGS: Image quality: Excellent. Bones: No fractures or dislocations. Visualized superior ribs are intact. Focal degenerative change is seen involving the C1-C2 interface anteriorly. There is moderate disc space narrowing seen at C3-C4 and C4-C5. Moderate to severe disc space narrowing can be seen at C5-C6, with associated endplate irregularity and sclerosis. Posteriorly directed endplate osteophytes can be seen at C5-C6. Multiple levels of facet hypertrophy can be seen, with degrees of fusion. Soft tissues: Prevertebral soft tissues are normal in thickness. No paravertebral hematomas. No apical pneumothoraces. Atherosclerotic calcification is noted. Mild emphysematous changes can be seen at the lung apices. IMPRESSION: No displaced fracture or traumatic subluxation. Cervical spine degenerative changes are seen, which are worst at C5-C6. Dictated by: Esau Garcia M.D. on 09/08/2024 at 12:34 Approved by: Esau Garcia M.D. on 09/08/2024 at 12:36 CT face: Radiologist's Impression: [address] [address] [address] Scan Report Signed Patient: Danuta Delgadillo MR#: [id number] : 1945 Acct:[id number] Age/Sex: 79 / F Date of Service: 09/08/24 Loc: ED Accession Number: [id number] Procedure: CT facial bones wo con Ordering Provider: Isaiah Harrison MD PROCEDURE: CT FACIAL BONES WO CON INDICATIONS: fall/pain TECHNIQUE: Noncontrast 2.5 mm thick axial images acquired from the mandible through the frontal sinuses, with coronal and sagittal reformatting. For radiation dose reduction, the following was used: automated exposure control, adjustment of mA and/or kV according to patient size. COMPARISON: [facility], CT, CT SINUS SCREEN WO CON, 08/14/2022, 14:39. [facility], CT, CT CERVICAL SPINE WO [facility], 09/08/2024, 12:59. [facility], CT, CT HEAD/BRAIN WO [facility], 09/08/2024, 12:59. FINDINGS: Image quality: Excellent. Bones and teeth: Orbital sauer are intact. Sinus sauer show no fracture or deformity. Nasal bones and septum are intact. Visualized portions of the mandible demonstrate no fractures or subluxation. Zygomatic arches are intact. Pterygoid plates are intact. Visualized portions of the skull base and auditory canals are intact. Sinuses: Prior right-sided antrectomy change can be seen. Paranasal sinuses are aerated, without fluid levels, mucosal thickening, or mucoceles. Mastoid air cells are aerated. Soft tissues: Right-sided facial laceration can be seen, with right-sided soft tissue gas, including within the right periorbital region. A mild degree of intraorbital gas is seen on the right anteriorly. Vascular: Visualized vascular structures appear normal in the absence of contrast. Bony vascular foramina and canals are intact. IMPRESSION: Right-sided facial laceration, with right-sided soft tissue gas can including within the right orbit. No displaced facial bone fracture is identified. Prior right-sided antrectomy change can be seen. Dictated by: Esau Garcia M.D. on 09/08/2024 at 12:39 Approved by: Esau Garcai M.D. on 09/08/2024 at 12:42 Extremity x-ray #1: Radiologist's Impression: [address] [address] XRay Report Signed Patient: Danuta Delgadillo MR#: [id number] : 1945 Acct:[id number] Age/Sex: 79 / F Date of Service: 09/08/24 Loc: ED Accession Number: [id number] Procedure: XR humerus RT 2V Ordering Provider: Isaiah Harrison MD PROCEDURE: XR HUMERUS RT 2V INDICATIONS: fall/pain TECHNIQUE: 3 views of the humerus were acquired. COMPARISON: None. FINDINGS: Bones: Anterior inferior shoulder dislocation. Displaced fracture fragments of the humeral head. No suspicious bony lesions. Soft tissues: No suspicious soft tissue calcifications. IMPRESSION: Anterior inferior shoulder dislocation. Displaced humeral head fracture. Dictated by: Scott Wilkerson M.D. on 09/08/2024 at 13:28 Approved by: Scott Wilkerson M.D. on 09/08/2024 at 13:30 Extremity x-ray #2: Radiologist's Impression: [address] [address] XRay Report Signed Patient: Danuta Delgadillo MR#: [id number] : 1945 Acct:[id number] Age/Sex: 79 / F Date of Service: 09/08/24 Loc: ED Accession Number: [id number] Procedure: XR elbow RT 2V Ordering Provider: Isaiah Harrison MD PROCEDURE: XR ELBOW RT 2V INDICATIONS: fall/pain TECHNIQUE: 2 views of the elbow were acquired. COMPARISON: None. FINDINGS: Bones: No fractures or dislocations. No suspicious bony lesions. Soft tissues: No elbow joint effusion. No suspicious soft tissue calcifications. IMPRESSION: No acute osseous abnormality. If pain persists with conservative management, consider repeat x-ray in 10-14 days or cross-sectional imaging. Dictated by: Scott Wilkerson M.D. on 09/08/2024 at 13:26 Approved by: Scott Wilkerson M.D. on 09/08/2024 at 13:28 Extremity x-ray #3: Radiologist's Impression: [address] [address] XRay Report Signed Patient: Danuta Delgadillo MR#: [id number] : 1945 Acct:[id number] Age/Sex: 79 / F Date of Service: 09/08/24 Loc: ED Accession Number: [id number] Procedure: XR shoulder RT 1V Ordering Provider: Isaiah Harrison MD PROCEDURE: XR SHOULDER RT 1V INDICATIONS: post reduction TECHNIQUE: 1 views of the shoulder were acquired. COMPARISON: [facility], CR, XR CHEST 1V, 09/08/2024, 12:49. [facility], CR, XR HUMERUS RT 2V, 09/08/2024, 12:49. FINDINGS: Bones: The glenohumeral joint appears appropriately position, however evaluation is limited with only a single view. Abnormal contour of the humeral head concerning for displaced fracture.. No suspicious bony lesions. Visualized ribs appear intact. Soft tissues: No suspicious soft tissue calcifications. IMPRESSION: The glenohumeral joint appears appropriately position, however evaluation is limited with only a single view. Abnormal contour of the humeral head concerning for displaced fracture. Dictated by: Scott Wilkerson M.D. on 09/08/2024 at 16:48 Approved by: Scott Wilkerson M.D. on 09/08/2024 at 16:[address] head: Radiologist's Impression: [place] [address] CT Scan Report Signed Patient: Danuta Delgadillo MR#: [id number] : 1945 Acct:[id number] Age/Sex: 79 / F Date of Service: 09/08/24 Loc: ED Accession Number: [id number] Procedure: CT head/brain wo con Ordering Provider: Isaiah Harrison MD PROCEDURE: CT HEAD/BRAIN WO CON INDICATIONS: Subarachnoid re-evaluation/comparison TECHNIQUE: Noncontrast 4.5 mm thick angled axial sections acquired from the foramen magnum to the vertex, with coronal and sagittal reformats. For radiation dose reduction, the following was used: automated exposure control, adjustment of mA and/or kV according to patient size. COMPARISON: [facility], CT, CT HEAD/BRAIN WO CON, 09/08/2024, 12:59. FINDINGS: Image quality: Diagnostic. CSF spaces: Again noted are subarachnoid hemorrhage along anterior aspect of bilateral frontal lobes worse on the right side unchanged in size and distribution compared to previous study. Basal cisterns are patent. The ventricles are symmetric in size and shape. Brain: No intracranial bleeds or masses. There is cerebral volume loss for age, with resultant ventricular and sulcal prominence. There are periventricular and deep white matter chronic small vessel ischemic changes. There is intracranial internal carotid artery atherosclerosis. Skull and face: Right facial soft tissue laceration and subcutaneous emphysema is again seen unchanged from earlier study. Calvarium and visualized facial bones appear intact, without suspicious lesions. Sinuses: Visualized sinuses and mastoids are clear. Postsurgical changes in right maxillary sinus medial wall is again seen. IMPRESSION: No significant changes from earlier study. Stable appearance of small to moderate subarachnoid hemorrhage involving anterior aspect of bilateral frontal lobes worse on the right side. No new area of acute intracranial bleed. No midline shift or mass effect. Other findings are all unchanged from prior study. Dictated by: John Esteban M.D. on 09/08/2024 at 17:23 Approved by: John Esteban M.D. on 09/08/2024 at 17:25 [facility] Narrative Medical decision making narrative: Patient drove self here. Complains of injury to the right side of the head complains of right shoulder pain. She states she walked on her back porch and slipped on ice and fell down. Patient is not on any blood thinners. No loss of consciousness. Tetanus up-to-date. Has laceration to the right temporal area. Has deformity to the right shoulder. Vital signs noted. Denies any recent illness fever chills cough cold congestion nausea vomiting diarrhea no black or bloody stools. After history and exam CT head cervical spine facial bones x-ray right humerus x-ray right elbow, normal saline morphine Zofran, consent for procedural sedation and closed reduction [facility] Medical records reviewed: No recent visit for this complaint Differential considered: Includes but not limited to intracranial bleed skull fracture shoulder dislocation/fracture Lab Test results independently reviewed as above. Pertinent findings: WBC 22.1 hemoglobin 11.6 INR 1.1 Independently reviewed EKG sinus tachycardia rate 122 Imaging studies independently reviewed: CT head bilateral right greater than left subarachnoid bleed, x-ray right shoulder humeral head fracture with anterior dislocation Post reduction right x-ray shoulder appears appropriately positioned Consultations: 3:43 p.m.. Spoke with [facility], Dr. Velazquez, she is viewed imaging. Patient is otherwise neurologically intact. Repeat CT in 4 hours, no need to transfer. No surgical intervention. 4:30 p.m.. Spoke with Orthopedic, Dr. Darling, recommends reducing shoulder regardless of fracture type seen today. He is reviewed x-ray imaging. No surgical intervention at this time. 5:[address] Sheriff, hospitalist, who will see patient for admission. Treatments: Normal saline, propofol for sedation Re-evaluations: 3:50 p.m.. Updated patient my discussion with Neurosurgery, no transfer at this time. At this time she does give consent for procedural sedation and closed reduction of the right shoulder. Form was completed with her consent and witnessed. 5:00 p.m.. Patient understands she will be admitted for rhabdomyolysis. She was likely on the ground longer than she thinks. Will need IV hydration and pain control. 4:42 p.m.. Patient tolerated procedure sedation and reduction very well. She is awake alert oriented x4. Reviewed with patient rhabdomyolysis, she was likely on the ground longer than she thought. Will need admission overnight for rhabdomyolysis IV fluids Discussion: Appropriate for admission for observation/IV fluids for rhabdomyolysis. No changes with repeat CT head. Patient neurologically intact. Diagnosis: Subarachnoid bleed/shoulder dislocation/fracture Please see [employer] notes for procedural sedation. Rebecca. Critical Care Time Critical Care Time Attestation: Critical Care Time 35 minutes: Critical care time is separate from other billable procedures. This critical care time includes consultation with family and other consulting doctors, review of records, and interpretation of data from labs, EKGs, imaging, etc. Discharge Plan Departure Patient Disposition: Admitted as Observation Clinical Impression: Subarachnoid bleed Anterior dislocation of right shoulder Qualifiers: Encounter type: initial encounter Qualified Code(s): S43.014A - Anterior dislocation of right humerus, initial encounter Fracture of head of humerus Qualifiers: Encounter type: initial encounter Fracture type: closed Laterality: right Q ualified Code(s): S42.291A - Other displaced fracture of upper end of right humerus, initial encounter for closed fracture Facial laceration Qualifiers: Encounter type: initial encounter Qualified Code(s): S01.81XA - Laceration without foreign body of other part of head, initial encounter Admit Date/Time: 09/08/24 17:35 Admit Provider: Merle Sheriff
[2024-09-08] MEDS: SODIUM CHLORIDE 0.9% 1,000 ML 1000 ML IV (14:57)
[2024-09-08 15:05] LABS: Alanine Aminotransferase 216 IU/L (<35); Albumin 4.2 g/dL (3.5-5.0); Albumin Globulin Ratio 1.6 (1.0-2.8); Alkaline Phosphatase 72 U/L (38-126); Aspartate Aminotransferase 288 IU/L (14-36); BUN Creatinine Ratio 25.4 (6-22); Bilirubin Total 1.2 mg/dL (0.2-1.3); Blood Urea Nitrogen 34 mg/dL (7-17); Calcium 9.1 mg/dL (8.4-10.2); Carbon Dioxide 22 mmol/L (22-32); Chloride 101 mmol/L (98-107); Estimated Glomerular Filt Rate 40 mL/min (>60); Globulin 2.7 g/dL (1.7-4.1); Glucose 108 mg/dL (80-110); HEMOLYSIS < 15 (0-50); Lipase 67 U/L (23-300); Magnesium 1.7 mg/dL (1.6-2.3); Sodium 134 mmol/L (137-145); Total Protein 6.9 g/dL (6.3-8.2)
[2024-09-08 15:16] LABS: Troponin I < 0.012 ng/mL (0.01-0.034)
[2024-09-08 15:23] LABS: Ethanol (ETOH) < 10 mg/dL
[2024-09-08 15:47] LABS: Creatine Kinase 3188 U/L (30-135); NT-proBNP (BNP-Adult 18+) 795 pg/mL (<450)
[2024-09-08] MEDS: propofoL 200 MG/20 ML VIAL 55 MG IV (16:10)
[2024-09-08] MEDS: propofoL 200 MG/20 ML VIAL 110 MG IV (16:33)
--- NOTE | 2024-09-08 16:36 | DI.RAD.S_ITS ---
PROCEDURE: XR SHOULDER RT 1V INDICATIONS: post reduction TECHNIQUE: 1 views of the shoulder were acquired. COMPARISON: [facility], CR, XR CHEST 1V, 09/08/2024, 12:49. [facility], CR, XR HUMERUS RT 2V, 09/08/2024, 12:49. FINDINGS: Bones: The glenohumeral joint appears appropriately position, however evaluation is limited with only a single view. Abnormal contour of the humeral head concerning for displaced fracture.. No suspicious bony lesions. Visualized ribs appear intact. Soft tissues: No suspicious soft tissue calcifications. IMPRESSION: The glenohumeral joint appears appropriately position, however evaluation is limited with only a single view. Abnormal contour of the humeral head concerning for displaced fracture. Dictated by: Scott Wilkerson M.D. on 09/08/2024 at 16:48 Approved by: Scott Wilkerson M.D. on 09/08/2024 at 16:51
--- NOTE | 2024-09-08 16:43 | DI.CT.S_ITS ---
PROCEDURE: CT HEAD/BRAIN WO CON INDICATIONS: Subarachnoid re-evaluation/comparison TECHNIQUE: Noncontrast 4.5 mm thick angled axial sections acquired from the foramen magnum to the vertex, with coronal and sagittal reformats. For radiation dose reduction, the following was used: automated exposure control, adjustment of mA and/or kV according to patient size. COMPARISON: [facility], CT, CT HEAD/BRAIN WO CON, 09/08/2024, 12:59. FINDINGS: Image quality: Diagnostic. CSF spaces: Again noted are subarachnoid hemorrhage along anterior aspect of bilateral frontal lobes worse on the right side unchanged in size and distribution compared to previous study. Basal cisterns are patent. The ventricles are symmetric in size and shape. Brain: No intracranial bleeds or masses. There is cerebral volume loss for age, with resultant ventricular and sulcal prominence. There are periventricular and deep white matter chronic small vessel ischemic changes. There is intracranial internal carotid artery atherosclerosis. Skull and face: Right facial soft tissue laceration and subcutaneous emphysema is again seen unchanged from earlier study. Calvarium and visualized facial bones appear intact, without suspicious lesions. Sinuses: Visualized sinuses and mastoids are clear. Postsurgical changes in right maxillary sinus medial wall is again seen. IMPRESSION: No significant changes from earlier study. Stable appearance of small to moderate subarachnoid hemorrhage involving anterior aspect of bilateral frontal lobes worse on the right side. No new area of acute intracranial bleed. No midline shift or mass effect. Other findings are all unchanged from prior study. Dictated by: John Esteban M.D. on 09/08/2024 at 17:23 Approved by: John Esteban M.D. on 09/08/2024 at 17:25
--- NOTE | 2024-09-08 16:45 | P.PCN_ITS ---
Procedures Date/Time Date of procedure: 09/08/24 Time of procedure: 16:30 Procedural Sedation Presedation evaluation: Patient with dislocated right shoulder. Came to ER after suffering fall this morning. Phone call from Dr. Harrison requesting assistance with sedation to reduce shoulder. Patient states she has NKDA, NPO since last night at 2100. Mall 2, good neck ROM, dentition intact. Suctions, OA, Ambu bag at bedside. Nasal cannula in place, O2 3lpm. Patient supine, HOB 30 degrees. 1630: BP 108/56, HR 130, Sat 99, RR 24. Sedation given, patient spontaneous respirations throughout, successful reduction. Small emesis upon awakening, mouth suctioned, cough/gag intact, patient alert, responding verbally. 1639: BP 119/57, HR 132, Sat 97, RR 20. Patient handed off to bedside RN. 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
--- NOTE | 2024-09-08 17:35 | PM.HP.1 ---
History of Present Illness History of Present Illness Date Patient Seen: 09/08/24 Chief complaint: Fall, eye and arm injury, no blood thinners Narrative: This is a 79-year-old female with hypertension, hyperlipidemia and osteoarthritis who fell on the ice on her front porch at 7:00 a.m. this morning. She dislocated and fractured the right humeral head. She caused bifrontal, right more than left subarachnoid hemorrhages. She has rhabdomyolysis with a total CK level of 3188. She lives alone and drove herself to the ED somehow despite these injuries. [facility], [facility] Medical History (Updated 09/08/24 @ 17:19 by Isaiah Harrison MD) Chronic pansinusitis Nasal polyp Nasal obstruction Easy bruisability Osteoarthritis HLD (hyperlipidemia) HTN (hypertension) Surgical History (Updated 10/09/22 @ 08:28 by Kiki Rodriguez RN) History of total right knee replacement (05/29/19) History of carpal tunnel surgery of right wrist (~2015) Hx of arthroscopy of right knee History of lumpectomy of right breast (~1984) Hx of tonsillectomy History of dilation and curettage (~1972) Social History household members: spouse Smoking Status: Current some day smoker alcohol intake: current Meds Home Medications and Allergies Home Medications Medication Instructions Recorded Confirmed Type atorvastatin 10 mg tablet (Lipitor) 10 mg PO QAM ##0 06/17/17 10/11/22 History lisinopril 10 mg tablet 10 mg PO QDAY ##0 06/17/17 05/26/19 History acetaminophen 500 mg tablet 500 mg PO Q4H PRN pain #60 tabs 05/30/19 10/11/22 Rx (Tylenol Extra Strength) dexamethasone 4 mg tablet 4 mg PO Q8H inflammation #9 tabs 05/30/19 Rx (Decadron) ibuprofen 400 mg tablet 400 mg PO Q4H inflammation #60 tabs 05/30/19 Rx Allergies Allergy/AdvReac Type Severity Reaction Status Date / Time No Known Drug Allergies Allergy Verified 10/11/22 10:24 Exam Vital Signs (past 8 hours): - 09/08/24 12:27 09/08/24 13:58 09/08/24 14:01 Temperature 98 F Pulse Rate 120 H 126 H 127 H Respiratory Rate 20 30 H 26 H Blood Pressure 90/52 L Pulse Oximetry 95 94 92 Oxygen Delivery Method Room Air 09/08/24 14:30 09/08/24 15:00 09/08/24 15:24 Temperature Pulse Rate 127 H 129 H Respiratory Rate 28 H 24 Blood Pressure 141/64 H Pulse Oximetry 95 98 Oxygen Delivery Method 09/08/24 15:24 09/08/24 15:30 09/08/24 15:30 Temperature Pulse Rate 134 H 134 H Respiratory Rate 27 H 26 H Blood Pressure 137/63 Pulse Oximetry 96 96 Oxygen Delivery Method 09/08/24 16:00 09/08/24 16:00 09/08/24 16:07 Temperature Pulse Rate 133 H 132 H Respiratory Rate 26 H 29 H Blood Pressure 113/57 L Pulse Oximetry 97 95 Oxygen Delivery Method 09/08/24 16:07 09/08/24 16:10 09/08/24 16:10 Temperature Pulse Rate 131 H Respiratory Rate 26 H Blood Pressure 95/47 L 87/51 L Pulse Oximetry 96 Oxygen Delivery Method 09/08/24 16:15 09/08/24 16:15 09/08/24 16:20 Temperature Pulse Rate 129 H Respiratory Rate 26 H Blood Pressure 91/50 L 115/59 L Pulse Oximetry 97 Oxygen Delivery Method 09/08/24 16:20 09/08/24 16:25 09/08/24 16:25 Temperature Pulse Rate 132 H 131 H Respiratory Rate 23 25 H Blood Pressure 108/56 L Pulse Oximetry 97 97 Oxygen Delivery Method 09/08/24 16:30 09/08/24 16:30 09/08/24 16:35 Temperature Pulse Rate 130 H Respiratory Rate 25 H Blood Pressure 116/59 L 119/57 L Pulse Oximetry 100 Oxygen Delivery Method 09/08/24 16:35 09/08/24 16:40 09/08/24 16:40 Temperature Pulse Rate 132 H 132 H Respiratory Rate 37 H 32 H Blood Pressure 103/55 L Pulse Oximetry 96 97 Oxygen Delivery Method 09/08/24 16:45 09/08/24 16:45 09/08/24 16:50 Temperature Pulse Rate 131 H 133 H Respiratory Rate 28 H 21 Blood Pressure 98/55 L Pulse Oximetry 98 98 Oxygen Delivery Method 09/08/24 16:50 09/08/24 16:55 09/08/24 16:55 Temperature Pulse Rate 133 H Respiratory Rate 24 Blood Pressure 118/65 114/66 Pulse Oximetry 94 Oxygen Delivery Method 09/08/24 17:00 09/08/24 17:00 Temperature Pulse Rate 133 H Respiratory Rate 27 H Blood Pressure 121/65 Pulse Oximetry 95 Oxygen Delivery Method Oxygen Delivery Method Room Air Objective Imaging CT scan - head: Radiologist's impression: PROCEDURE: CT HEAD/BRAIN WO CON INDICATIONS: Subarachnoid re-evaluation/comparison TECHNIQUE: Noncontrast 4.5 mm thick angled axial sections acquired from the foramen magnum to the vertex, with coronal and sagittal reformats. For radiation dose reduction, the following was used: automated exposure control, adjustment of mA and/or kV according to patient size. COMPARISON: [facility], CT, CT HEAD/BRAIN WO CON, 09/08/2024, 12:59. FINDINGS: Image quality: Diagnostic. CSF spaces: Again noted are subarachnoid hemorrhage along anterior aspect of bilateral frontal lobes worse on the right side unchanged in size and distribution compared to previous study. Basal cisterns are patent. The ventricles are symmetric in size and shape. Brain: No intracranial bleeds or masses. There is cerebral volume loss for age, with resultant ventricular and sulcal prominence. There are periventricular and deep white matter chronic small vessel ischemic changes. There is intracranial internal carotid artery atherosclerosis. Skull and face: Right facial soft tissue laceration and subcutaneous emphysema is again seen unchanged from earlier study. Calvarium and visualized facial bones appear intact, without suspicious lesions. Sinuses: Visualized sinuses and mastoids are clear. Postsurgical changes in right maxillary sinus medial wall is again seen. IMPRESSION: No significant changes from earlier study. Stable appearance of small to moderate subarachnoid hemorrhage involving anterior aspect of bilateral frontal lobes worse on the right side. No new area of acute intracranial bleed. No midline shift or mass effect. Other findings are all unchanged from prior study. Dictated by: John Esteban M.D. on 09/08/2024 at 17:23 Right Humerus: Radiologist's impression: PROCEDURE: XR HUMERUS RT 2V INDICATIONS: fall/pain TECHNIQUE: 3 views of the humerus were acquired. COMPARISON: None. FINDINGS: Bones: Anterior inferior shoulder dislocation. Displaced fracture fragments of the humeral head. No suspicious bony lesions. Soft tissues: No suspicious soft tissue calcifications. IMPRESSION: Anterior inferior shoulder dislocation. Displaced humeral head fracture. Dictated by: Scott Wilkerson M.D. on 09/08/2024 at 13:28 Labs 09/08/24 13:37 09/08/24 14:35 Labs: Laboratory Results - last 24 hr 09/08/24 09/08/24 13:37 14:35 WBC 22.1 H RBC 3.88 L Hgb 11.6 L Hct 35.8 L MCV 92.1 MCH 29.9 MCHC 32.4 RDW 14.5 Plt Count 246 Neut % (Auto) 88.4 H Lymph % (Auto) 4.7 L Coke % (Auto) 6.5 Eos % (Auto) 0.0 L Baso % (Auto) 0.4 Neut # (Auto) 77738 H Lymph # (Auto) 1000 L Coke # (Auto) 1400 H Eos # (Auto) 0 Baso # (Auto) 100 PT 12.5 INR 1.1 APTT 25 L Sodium 134 L Potassium 5.0 Chloride 101 Carbon Dioxide 22 BUN 34 H Creatinine 1.34 H Estimated GFR 40 L BUN/Creatinine Ratio 25.4 H Glucose 108 Calcium 9.1 Magnesium 1.7 Total Bilirubin 1.2 AST 288 H ALT 216 H Alkaline Phosphatase 72 Total Creatine Kinase 3188 H Troponin I < 0.012 NT-Pro-B Natriuret Pep 795 H Total Protein 6.9 Albumin 4.2 Globulin 2.7 Albumin/Globulin Ratio 1.6 Lipase 67 Ethyl Alcohol < 10 Assessment & Plan Time-Based Coding :: [TOTAL MINUTES] spent with patient and on the chart (including review of chart, obtaining history, exam, reviewing outside data, placing orders, documenting exam and treatment plan, and counseling patient) on [DATE].
[2024-09-08] MEDS: BACITRACIN OINT 0.9 GM PCKT 1 APPLIC TOP (17:36)
--- NOTE | 2024-09-08 18:09 | PM.HP.1 ---
History of Present Illness History of Present Illness Chief complaint: Fall, eye and arm injury, no blood thinners Narrative: This is a 79-year-old female with hypertension, hyperlipidemia and osteoarthritis who fell on the ice on her front deck at around 7:00 a.m. this morning. It took her 20 minutes to get up and back into the house. (At baseline she is walker/cane dependent for mobility.) She dislocated the right shoulder and fractured the right humeral head. She has bifrontal, right more than left subarachnoid hemorrhages that are stable on serial CT scans. She has rhabdomyolysis with a total CK level of 3188. She lives alone so first took a shower to clean off all the blood from the facial laceration, got herself dressed and then several hours later drove herself to the ED somehow despite these injuries and not being able to use her right hand. In the ED she underwent a propofol sedation for treatment of the dislocated shoulder. The ED physician spoke with Neurosurgery about the subarachnoid hemorrhages after the serial CTs showing no change and the recommendation was to follow up with her PCP in [address] The initial blood pressure was 98/50, rising to 121/65 after 1 L IV bolus. She states that she drinks 1 alcoholic drink per night. Her AST is 288 and her ALT is 216. Her 2 sons live in [place]. Now that the plan is settled she intends to inform them about her injuries. [facility] Medical History (Updated 09/08/24 @ 17:19 by Isaiah Harrison MD) Daily consumption of alcohol Chronic pansinusitis Nasal polyp Nasal obstruction Easy bruisability Osteoarthritis HLD (hyperlipidemia) HTN (hypertension) Surgical History (Updated 09/08/24 @ 18:16 by Merle Sheriff MD) History of total knee arthroplasty History of total right knee replacement (05/29/19) History of carpal tunnel surgery of right wrist (~2015) Hx of arthroscopy of right knee History of lumpectomy of right breast (~1984) Hx of tonsillectomy History of dilation and curettage (~1972) Social History household members: spouse Smoking Status: Current some day smoker alcohol intake: current Meds Home Medications and Allergies Home Medications Medication Instructions Recorded Confirmed Type atorvastatin 10 mg tablet (Lipitor) 10 mg PO QAM ##0 06/17/17 10/11/22 History lisinopril 10 mg tablet 10 mg PO QDAY ##0 06/17/17 05/26/19 History acetaminophen 500 mg tablet 500 mg PO Q4H PRN pain #60 tabs 05/30/19 10/11/22 Rx (Tylenol Extra Strength) dexamethasone 4 mg tablet 4 mg PO Q8H inflammation #9 tabs 05/30/19 Rx (Decadron) ibuprofen 400 mg tablet 400 mg PO Q4H inflammation #60 tabs 05/30/19 Rx Allergies Allergy/AdvReac Type Severity Reaction Status Date / Time No Known Drug Allergies Allergy Verified 10/11/22 10:24 Review of Systems Review of Systems Narrative: Positive for right shoulder pain, right facial pain, right facial laceration, right eye area bruising, left arm bruising, diminished mobility, inability to use her right arm. Negative for fevers, chills, sweats, coughing, nausea, vomiting, abdominal pain, chest pain, rashes, palpitations, GI bleeding, new allergies. Exam Vital Signs (past 8 hours): - 09/08/24 12:27 09/08/24 13:58 09/08/24 14:01 Temperature 98 F Pulse Rate 120 H 126 H 127 H Respiratory Rate 20 30 H 26 H Blood Pressure 90/52 L Pulse Oximetry 95 94 92 Oxygen Delivery Method Room Air Oxygen Flow Rate 09/08/24 14:30 09/08/24 15:00 09/08/24 15:24 Temperature Pulse Rate 127 H 129 H Respiratory Rate 28 H 24 Blood Pressure 141/64 H Pulse Oximetry 95 98 Oxygen Delivery Method Oxygen Flow Rate 09/08/24 15:24 09/08/24 15:30 09/08/24 15:30 Temperature Pulse Rate 134 H 134 H Respiratory Rate 27 H 26 H Blood Pressure 137/63 Pulse Oximetry 96 96 Oxygen Delivery Method Oxygen Flow Rate 09/08/24 16:00 09/08/24 16:00 09/08/24 16:07 Temperature Pulse Rate 133 H 132 H Respiratory Rate 26 H 29 H Blood Pressure 113/57 L Pulse Oximetry 97 95 Oxygen Delivery Method Oxygen Flow Rate 09/08/24 16:07 09/08/24 16:10 09/08/24 16:10 Temperature Pulse Rate 131 H Respiratory Rate 26 H Blood Pressure 95/47 L 87/51 L Pulse Oximetry 96 Oxygen Delivery Method Nasal Cannula Oxygen Flow Rate 3 09/08/24 16:15 09/08/24 16:15 09/08/24 16:20 Temperature Pulse Rate 129 H Respiratory Rate 26 H Blood Pressure 91/50 L 115/59 L Pulse Oximetry 97 Oxygen Delivery Method Nasal Cannula Nasal Cannula Oxygen Flow Rate 3 3 09/08/24 16:20 09/08/24 16:25 09/08/24 16:25 Temperature Pulse Rate 132 H 131 H Respiratory Rate 23 25 H Blood Pressure 108/56 L Pulse Oximetry 97 97 Oxygen Delivery Method Nasal Cannula Nasal Cannula Oxygen Flow Rate 3 3 09/08/24 16:30 09/08/24 16:30 09/08/24 16:35 Temperature Pulse Rate 130 H Respiratory Rate 25 H Blood Pressure 116/59 L 119/57 L Pulse Oximetry 100 Oxygen Delivery Method Nasal Cannula Oxygen Flow Rate 3 09/08/24 16:35 09/08/24 16:40 09/08/24 16:40 Temperature Pulse Rate 132 H 132 H Respiratory Rate 37 H 32 H Blood Pressure 103/55 L Pulse Oximetry 96 97 Oxygen Delivery Method Oxygen Flow Rate 09/08/24 16:45 09/08/24 16:45 09/08/24 16:50 Temperature Pulse Rate 131 H 133 H Respiratory Rate 28 H 21 Blood Pressure 98/55 L Pulse Oximetry 98 98 Oxygen Delivery Method Oxygen Flow Rate 09/08/24 16:50 09/08/24 16:55 09/08/24 16:55 Temperature Pulse Rate 133 H Respiratory Rate 24 Blood Pressure 118/65 114/66 Pulse Oximetry 94 Oxygen Delivery Method Room Air Oxygen Flow Rate 09/08/24 17:00 09/08/24 17:00 09/08/24 17:13 Temperature Pulse Rate 133 H Respiratory Rate 27 H Blood Pressure 121/65 127/63 Pulse Oximetry 95 Oxygen Delivery Method Room Air Oxygen Flow Rate 09/08/24 17:13 09/08/24 17:30 09/08/24 17:30 Temperature Pulse Rate 133 H 130 H Respiratory Rate 21 21 Blood Pressure 115/55 L Pulse Oximetry 94 94 Oxygen Delivery Method Room Air Oxygen Flow Rate 09/08/24 18:00 09/08/24 18:00 Temperature Pulse Rate 134 H Respiratory Rate 26 H Blood Pressure 127/66 Pulse Oximetry 95 Oxygen Delivery Method Room Air Oxygen Flow Rate Oxygen Delivery Method Room Air Oxygen Flow Rate 3 Narrative Exam Narrative: Alert and oriented x3. Remarkably she is in no distress despite her multiple injuries. Pupils are equally round and reactive to light and accommodation. Extraocular muscles are intact Sclerae are pink and nonicteric The entire circumference of the skin around the right eye is purplish bruised and swollen. This causes the right eye to be ?half shut?. There is no right facial tenderness. There is a sutured laceration just lateral to the right eye. Throat looks normal No lymph nodes are felt head, neck, supraclavicular area There is no thyromegaly JVD is less than 6 cm There is no carotid bruits. Heart is tachycardic regular rhythm without murmur Lungs are clear to auscultation bilaterally Abdomen is soft, obese, nontender, no organomegaly Extremities: No peripheral ankle edema. 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 The right shoulder is slightly swollen and bruised. It is tender to touch. There is no clavicular tenderness or displacement felt. Skin: Bruising around the right eye and on the left arm. Right facial laceration as described above. Neurologic exam: Motor function is 3/5 symmetric in bilateral lower extremities. Home Sales Consultant strength is 3/5 on the left. Right side is injured and in a sling. Cranial nerves 2-12 test intact There is no tremor There is no dysmetria with the left hand. Objective Labs 09/08/24 13:37 09/08/24 14:35 Labs: Laboratory Results - last 24 hr 09/08/24 09/08/24 13:37 14:35 WBC 22.1 H RBC 3.88 L Hgb 11.6 L Hct 35.8 L MCV 92.1 MCH 29.9 MCHC 32.4 RDW 14.5 Plt Count 246 Neut % (Auto) 88.4 H Lymph % (Auto) 4.7 L [place] % (Auto) 6.5 Eos % (Auto) 0.0 L Baso % (Auto) 0.4 Neut # (Auto) 43572 H Lymph # (Auto) 1000 L [place] # (Auto) 1400 H Eos # (Auto) 0 Baso # (Auto) 100 PT 12.5 INR 1.1 APTT 25 L Sodium 134 L Potassium 5.0 Chloride 101 Carbon Dioxide 22 BUN 34 H Creatinine 1.34 H Estimated GFR 40 L BUN/Creatinine Ratio 25.4 H Glucose 108 Calcium 9.1 Magnesium 1.7 Total Bilirubin 1.2 AST 288 H ALT 216 H Alkaline Phosphatase 72 Total Creatine Kinase 3188 H Troponin I < 0.012 NT-Pro-B Natriuret Pep 795 H Total Protein 6.9 Albumin 4.2 Globulin 2.7 Albumin/Globulin Ratio 1.6 Lipase 67 Ethyl Alcohol < 10 Assessment & Plan Assessment & Plan narrative: This is a 79-year-old female with hypertension, hyperlipidemia and osteoarthritis who fell on the ice on her front deck at around 7:00 a.m. this morning. It took her 20 minutes to get up and back into the house. (At baseline she is walker/cane dependent for mobility.) She dislocated the right shoulder and fractured the right humeral head. She has bifrontal, right more than left subarachnoid hemorrhages that are stable on serial CT scans. She has rhabdomyolysis with a total CK level of 3188. Traumatic rhabdomyolysis, present on admission -patient reports lying for 20 minutes on the ground before driving herself to the hospital -CK level 3188, GFR 40, creatinine 1.34. -initial hypotension responded to 1 L normal saline -follow renal function and continue maintenance IV fluid -Sinus Tachycardia noted on Telemetry and EKG (P waves are in the downslope of the T wave). Chronic kidney disease with possible TONE -follow creatinine, 1.34 on admission Traumatic Bifrontal subarachnoid hemorrhages, present on admission -serial CTs show no significant change. -ED reviewed this condition with Neurosurgery who suggested repeat CT in 6 weeks with PCP -no detectable neurologic abnormalities today, follow closely. Right shoulder anterior dislocation and humeral head fracture, present on admission -per discussion with Dr. Jean-Baptiste the patient underwent sedated correction of her dislocated shoulder in the emergency department with Dr. Harrison -follow-up will be with Orthopedics as significant rotator cuff injury is suspected. Right facial laceration -repaired in the ED Daily alcohol use -alcohol level is 0 on admission. -elevated liver enzymes with AST 288 and ALT 216, follow Elevated liver enzymes -possibly related to alcohol use -follow DVT prevention with SCD, avoid anticoagulation due to subarachnoid hemorrhage Her adult sons are her backup decision makers. Time-Based Coding :: [TOTAL MINUTES] spent with patient and on the chart (including review of chart, obtaining history, exam, reviewing outside data, placing orders, documenting exam and treatment plan, and counseling patient) on [DATE].
--- NOTE | 2024-09-08 18:37 | DI.RAD.S_ITS ---
PROCEDURE: XR CHEST 1V INDICATIONS: Tachycardia TECHNIQUE: One view of the chest was acquired. COMPARISON: [facility], CR, XR CHEST 1V, 09/08/2024, 12:49. FINDINGS: Surgical changes and devices: None. Lungs and pleura: Lungs are clear. No pleural effusions or pneumothorax. Mediastinum: Mediastinal contours appear normal. Heart size is normal. Bones and chest wall: No suspicious bony lesions. Overlying soft tissues appear unremarkable. IMPRESSION: No acute cardiopulmonary pathology. Dictated by: John Esteban M.D. on 09/08/2024 at 19:16 Approved by: John Esteban M.D. on 09/08/2024 at 19:17
--- NOTE | 2024-09-08 19:39 | PC.NURSE ---
Patient admitted from ER to room 205, oriented to room and call light, call light placed within reach. Patient alert and oriented, vss, assisted by cane and STORAGE CONSULTANT to bathroom to urinate. Patient denies head pain, states pain is only in her right upper arm (which is in a sling from ER) and declines pain medications or other interventions at this time. Patient has dressing to right eye laceration CDI, multiple other bruises and abrasions noted (see skin assessment). Tele placed on patient. Xray up as ordered. Patient sitting upright in bed drinking water and having a yogurt at this time. Nightshift will continue with admission. Bed alarm on for safety.
[2024-09-08] MEDS: HYDROCODONE/ACET 5/325 TABLET 2 TAB PO (20:40)
[2024-09-08] MEDS: DOCUSATE 100 MG CAPSULE PO (20:42)
[2024-09-08] MEDS: SODIUM CHLORIDE 0.9% 1,000 ML 100 ML IV (20:43)
--- NOTE | 2024-09-08 23:12 | PC.NURSE ---
Met with pt and pt's son who had questions re: DI results and lab results. Pt and pt's son stated all questions answered, pt resting comfortably with call light and personal belongings in reach, bed low/locked. Plan of care ongoing.
[2024-09-09] MEDS: HYDROCODONE/ACET 5/325 TABLET 1 TAB PO ×2 (00:16→12:34)
[2024-09-09] MEDS: SODIUM CHLORIDE 0.9% 1,000 ML 100 ML IV (05:56)
[2024-09-09 06:00] VITALS: BP 113/70; PULSE 119; RESP 22; TEMP 36.8; O2SAT 93
[2024-09-09 06:30] LABS: Add Manual Diff / Slide Review NO; Basophils Absolute Auto 0 /uL (0-100); Basophils Percent Auto 0.3 % (0-2); Eosinophils Absolute Auto 0 /uL (0-450); Eosinophils Percent Auto 0.1 % (2-4); Hematocrit 29.2 % (36-46); Hemoglobin 9.7 g/dL (12.0-16.0); Lymphocytes Absolute Auto 2000 /uL (1100-4500); Lymphocytes Percent Auto 14.7 % (25-40); Mean Corpuscular HGB Conc 33.1 % (30-36); Mean Corpuscular Hemoglobin 30.3 PG (26-34); Mean Corpuscular Volume 91.5 fL (80-100); Monocytes Absolute Auto 1000 /uL (0-900); Monocytes Percent Auto 7.6 % (3-14); Neutrophils Absolute Auto 10300 /uL (1500-7000); Neutrophils Percent Auto 77.3 % (50-75); Platelet Count 188 X10^3/uL (150-400); Red Cell Distribution Width 14.4 % (11.6-14.8); White Blood Cell Count 13.3 X10^3/uL (4.5-11.0)
[2024-09-09 06:44] LABS: Alanine Aminotransferase 232 IU/L (<35); Albumin Globulin Ratio 1.1 (1.0-2.8); Alkaline Phosphatase 57 U/L (38-126); Aspartate Aminotransferase 376 IU/L (14-36); BUN Creatinine Ratio 44.9 (6-22); Bilirubin Total 1.1 mg/dL (0.2-1.3); Blood Urea Nitrogen 35 mg/dL (7-17); Calcium 8.4 mg/dL (8.4-10.2); Carbon Dioxide 27 mmol/L (22-32); Chloride 108 mmol/L (98-107); Estimated Glomerular Filt Rate > 60 mL/min (>60); Globulin 2.7 g/dL (1.7-4.1); Glucose 90 mg/dL (80-110); HEMOLYSIS < 15 (0-50); Potassium 4.3 mmol/L (3.4-5.1); Sodium 134 mmol/L (137-145); Total Protein 5.7 g/dL (6.3-8.2)
[2024-09-09 07:01] LABS: Creatine Kinase 6128 U/L (30-135)
--- NOTE | 2024-09-09 07:19 | P.PN_ITS ---
Subjective Subjective Date Patient Seen: 09/09/24 Interval history: She is seen today to follow-up her right shoulder fracture, right shoulder dislocation, elevated liver enzymes and subarachnoid hemorrhages. She fell on her deck yesterday. A CT of the chest and abdomen done because of the trauma and the rising liver enzymes today documents 6 different rib fractures on the right side without signs of liver trauma. The heart rate is 119 with a blood pressure of 113/70. The white blood count dropped from 22.1 down to 13.3 and the hemoglobin dropped from 11.6 down to 9.7. Her sodium is 134 with a potassium of 4.3 and a creatinine of 0.78. The AST is 376 up from 288. The ALT is 232 up from 216. The CK vicenta from 3128 up to 6128. Those labs will be repeated tomorrow. It is unclear why the rhabdomyolysis seems to be numerically worsening. The patient looks stable/improved. The bruising around the right eye has actually come down quite a bit. She tells me she drinks 2 glasses of Chardonn[place] wine at night. She is not experiencing any withdrawal symptoms. She says she has no risk factors for hepatitis B or C. Her sons are family doctors in [place]. I spoke with 1 of her sons today who has already reviewed her workup and had no other questions. Exam Vital Signs (past 8 hours): - 09/08/24 23:46 09/09/24 06:00 Temperature 98.6 F 98.3 F Pulse Rate 125 H 119 H Respiratory Rate 18 22 Blood Pressure 102/62 113/70 Pulse Oximetry 94 93 Oxygen Flow Rate 0 0 Oxygen Delivery Method Room Air Oxygen Flow Rate 0 Narrative Exam Narrative: Patient is alert and oriented. She is in mild distress from right shoulder pain. She denies any abdominal pain and chest pain. She has some mild right posterior upper back rib wall pain. Heart is regular rate and rhythm with a 2/6 systolic ejection murmur which she says she has had since childhood. Lungs are clear to auscultation bilaterally Abdomen is soft, bowel sounds positive, nontender, no organomegaly. Extremities have no ankle edema. She does have bruising and tenderness over the lateral right shoulder. Motor function is 3-4/5 throughout. There is no lateralizing deficit. There is no headache to go along with the subarachnoid hemorrhage. There is no tremor. Cranial nerves are intact. The right face bruising and swelling around the eye has already improved significantly today. Objective Labs 09/09/24 06:00 09/09/24 06:00 Labs: Laboratory Results - last 24 hr 09/08/24 09/08/24 09/09/24 13:37 14:35 06:00 WBC 22.1 H 13.3 H RBC 3.88 L 3.20 L Hgb 11.6 L 9.7 L Hct 35.8 L 29.2 L MCV 92.1 91.5 MCH 29.9 30.3 MCHC 32.4 33.1 RDW 14.5 14.4 Plt Count 246 188 Neut % (Auto) 88.4 H 77.3 H Lymph % (Auto) 4.7 L 14.7 L [place] % (Auto) 6.5 7.6 Eos % (Auto) 0.0 L 0.1 L Baso % (Auto) 0.4 0.3 Neut # (Auto) 78212 H 32406 H Lymph # (Auto) 1000 L 2000 [place] # (Auto) 1400 H 1000 H Eos # (Auto) 0 0 Baso # (Auto) 100 0 PT 12.5 INR 1.1 APTT 25 L Sodium 134 L 134 L Potassium 5.0 4.3 Chloride 101 108 H Carbon Dioxide 22 27 BUN 34 H 35 H Creatinine 1.34 H 0.78 Estimated GFR 40 L > 60 BUN/Creatinine Ratio 25.4 H 44.9 H Glucose 108 90 Calcium 9.1 8.4 Magnesium 1.7 Total Bilirubin 1.2 1.1 AST 288 H 376 H ALT 216 H 232 H Alkaline Phosphatase 72 57 Total Creatine Kinase 3188 H 6128 H D Troponin I < 0.012 NT-Pro-B Natriuret Pep 795 H Total Protein 6.9 5.7 L Albumin 4.2 3.0 L Globulin 2.7 2.7 Albumin/Globulin Ratio 1.6 1.1 Lipase 67 Ethyl Alcohol < 10 PFSH Medical History (Updated 09/08/24 @ 18:15 by Merle Sheriff MD) Daily consumption of alcohol Chronic pansinusitis Nasal polyp Nasal obstruction Easy bruisability Osteoarthritis HLD (hyperlipidemia) HTN (hypertension) Surgical History (Updated 09/08/24 @ 18:16 by Merle Sheriff MD) History of total knee arthroplasty History of total right knee replacement (05/29/19) History of carpal tunnel surgery of right wrist (~2015) Hx of arthroscopy of right knee History of lumpectomy of right breast (~1984) Hx of tonsillectomy History of dilation and curettage (~1972) Social History household members: none Smoking Status: Current some day smoker alcohol intake: current Assessment & Plan Assessment & Plan narrative: This is a 79-year-old female with hypertension, hyperlipidemia and osteoarthritis who fell on the ice on her front deck at around 7:00 a.m. It took her 20 minutes to get up and back into the house. (At baseline she is walker/cane dependent for mobility.) She dislocated the right shoulder and fractured the right humeral head. She has bifrontal, right more than left subarachnoid hemorrhages that are stable on serial CT scans. She has rhabdomyolysis with a total CK level of 3188. Traumatic rhabdomyolysis, present on admission -patient reports lying for 20 minutes on the ground before driving herself to the hospital -CK level 3188, GFR 40, creatinine 1.34. -CK 6128 09/09, creatinine 0.78. It is unclear why the CK is still rising. Clinically she is improving. -initial hypotension responded to 1 L normal saline -follow renal function and continue maintenance IV fluid -Sinus Tachycardia noted on Telemetry and EKG (P waves are in the downslope of the T wave). Chronic kidney disease with possible TONE -follow creatinine, 1.34 on admission, 0.78 on follow up. Traumatic Bifrontal subarachnoid hemorrhages, present on admission -serial CTs showed no significant change. -ED reviewed this condition with Neurosurgery who suggested repeat CT in 6 weeks with PCP -no detectable neurologic abnormalities, follow closely. Right shoulder anterior dislocation and humeral head fracture, present on admission -per discussion with Dr. Jean-Baptiste the patient underwent sedated correction of her dislocated shoulder in the emergency department with Dr. Harrison -follow-up will be with Orthopedics as significant rotator cuff injury is suspected. -Shoulder immobilizer at all times. Multiple right sided rib fractures -Right ribs 3-9. No pneumothorax. -Hgb dropped from 11.6 to 9.7, follow. Right facial laceration -repaired in the ED Daily alcohol use -alcohol level is 0 on admission. -elevated liver enzymes with AST 288 and ALT 216, follow Elevated liver enzymes -AST vicenta to 376 and ALt vicenta to 232 on 09/12 -No liver injury on CT 09/12 -possibly related to daily 2 glasses of wine - alcohol use. No Hepatitis risk factors. -follow DVT prevention with SCD, avoid anticoagulation due to subarachnoid hemorrhage Her adult sons are her backup decision makers. Time-Based Coding :: [TOTAL MINUTES] spent with patient and on the chart (including review of chart, obtaining history, exam, reviewing outside data, placing orders, documenting exam and treatment plan, and counseling patient) on [DATE].
--- NOTE | 2024-09-09 07:59 | DI.CT.S_ITS ---
PROCEDURE: CT TRAUMA CHEST ABDOMEN PELVIS INDICATIONS: Trauma and rising LFT TECHNIQUE: MDCT axial chest images were obtained with IV contrast in the arterial phase. Maximum intensity projections and multiplanar reformats were obtained. MDCT axial abdomen and pelvis images were obtained with IV contrast in the portal venous phase. Multiplanar reformats were obtained. Optional delayed phase scanning may also be obtained Advanced techniques were used to lower patient radiation exposure. COMPARISON:None. FINDINGS Image Quality: Diagnostic. Chest: Lungs and pleura: No pneumothorax or hemothorax. No pulmonary contusions or lacerations. No solid pulmonary nodule requiring follow-up. Moderate centrilobular pulmonary emphysema. Right lower lung atelectasis likely related to splinting from the adjacent rib fractures. Vascular: No dissection or pseudoaneurysm. No incidental central pulmonary embolism. No hemopericardium. Mediastinum: No mediastinum hematoma. No suspicious mass or lymph nodes. There is a 1 centimeter hypodense right thyroid nodule. Chest wall and bones: Intact clavicles, scapula, and glenohumeral joints. There are per articular calcifications around the right glenohumeral joint which may represent CPPD arthropathy. There are multiple nondisplaced rib fractures including: Right anterior 3rd, 4th and 5th. Right lateral 6th, 7th, 8th. Right posterior 5th, 8th, 9th. Right paravertebral 9th. Left posterior 12th. Thoracic spine: No acute fracture or traumatic subluxation. ABDOMEN and PELVIS: Liver: There is a 0.6 centimeter enhancing hyperdensity at the dome of the liver in the posterior aspect of the fatty segment 4A which appears stable on delayed images and may represent a perfusion anomaly. No overt laceration or capsular hematoma. Gallbladder: Unremarkable. Biliary system: Non-dilated. Pancreas: Unremarkable. Spleen: No laceration or capsular hematoma. Adrenals: No suspicious nodules. Kidneys: No contrast extravasation or hydronephrosis. No solid masses. Vessels and lymph nodes: No pathology lymph nodes by size criteria. No dissection or aneurysm. No retroperitoneal hematoma. Bowel and peritoneum: No suspicious region of mesenteric hemorrhage or hemoperitoneum. No bowel obstruction. Pelvis: Unremarkable bladder. Pelvic ring and femurs: No pelvic ring disruption. No hip fractures. Lumbar spine: No acute fracture or traumatic subluxation. Moderate multilevel degeneration. Abdominal wall: No drainable fluid collection or hematoma. IMPRESSION: 1. Numerous nondisplaced right rib fractures involving ribs 3-9 with segmental fractures involving the 5th, 8th and 9th ribs. Additional nondisplaced left posterior 12th rib fracture. 2. Moderate right lower lung atelectasis likely related to splinting from the adjacent rib fractures. Moderate diffuse emphysema. 3. No obvious liver pathology to explain elevated LFTs. 4. Hypodense 1 centimeter right thyroid lobe nodule. Recommend dedicated thyroid ultrasound for risk stratification on a nonurgent basis. Dictated by: Lalo Schultz M.D. on 09/09/2024 at 8:22 Approved by: Lalo Schultz M.D. on 09/09/2024 at 8:55
[2024-09-09 08:00] VITALS: BP 124/69; PULSE 90; RESP 17; TEMP 36.8; O2SAT 100
[2024-09-09] MEDS: HYDROCODONE/ACET 5/325 TABLET 2 TAB PO ×3 (08:10→21:10)
[2024-09-09] MEDS: DOCUSATE 100 MG CAPSULE PO ×2 (08:10→21:09)
--- NOTE | 2024-09-09 11:45 | PT.IIE ---
Surgical History (Last Updated 09/08/24 @ 18:16 by Merle Sheriff MD) History of carpal tunnel surgery of right wrist (~2015) History of dilation and curettage (~1972) History of lumpectomy of right breast (~1984) History of total knee arthroplasty History of total right knee replacement (05/29/19) Hx of arthroscopy of right knee Hx of tonsillectomy Medical History (Last Updated 09/08/24 @ 18:15 by Merle Sheriff MD) Chronic pansinusitis Daily consumption of alcohol Easy bruisability HLD (hyperlipidemia) HTN (hypertension) Nasal obstruction Nasal polyp Osteoarthritis Physical Therapy Inpatient Evaluation/Re-Eval M1 PT/OT-IP Prior Functional Status Start: 09/09/24 12:54 Freq: NEEDED Status: Active Protocol: Document 09/09/24 11:45 AB (Rec: 09/09/24 13:19 AB [id number]) Medical Review Prior Functional Status Medical History Reviewed Yes Communication able to make needs known Mobility and Gait pt stated that she was modified independent with all mobilities and ambulation using s 4WW indoors and a hurrycane for outdoor ambulation Social History Household Members none Living Arrangements House Number of Floors (Floors) Two Floors Number of Stairs To Enter/Railing? 2 steps without rails from the garage but pt stated that she holds on to a fridge handle for support 16 steps R rail to get to 2nd level bedroom Home Environment Standard Height Toilet,Walk in Shower Home Equipment Four Wheel Walker,Raised Toilet Seat w/Armrests,Shower Seat with Backrest,Grab Bars In Shower Additional Social History Comment pt has a hurrycane pt lives alone but stated that she has her son and DIL that can stay with her to assist her if needed M2 PT-IP Current Condition Start: 09/09/24 12:54 Freq: NEEDED Status: Active Protocol: Document 09/09/24 11:45 AB (Rec: 09/09/24 13:19 AB [id number]) Physical Therapy Current Condition Current Condition Evaluation Date 09/09/24 Treatment Diagnosis R shld dislocation s/p reduction; R shld fx; rib fxs; difficulty in walking Onset Date 09/08/24 M3 PT-IP Subjective Start: 01/22/25 12:54 Freq: NEEDED Status: Active Protocol: Document 09/09/24 11:45 AB (Rec: 09/09/24 13:19 AB [id number]) Subjective Physical Therapy Visit Type Type Initial Evaluation Visit Start Time 11:45 Visit Stop Time 12:10 Number of SENIOR SOFTWARE TESTER Visits 0 Physical Therapy Visit Comments Patient Comments agreeable to do PT Therapy Pain Assessment Pain When Pain Assessed At Rest Pain Present Pain Present Pain Reported Location Right Ribs Intensity 5 Scale Used Numeric (0 - 10) Pain Management Techniques Distraction,Modification of Treatment,Re-positioning, Timing of Activity with Medications Right Shoulder Intensity 5 Scale Used Numeric (0 - 10) Pain Management Techniques Distraction,Modification of Treatment,Re-positioning, Timing of Activity with Medications M4 PT-IP Mobility and Gait Start: 09/09/24 12:54 Freq: NEEDED Status: Active Protocol: Document 09/09/24 11:45 AB (Rec: 09/09/24 13:19 [id number]) PT-Bed Mobility Assessment Supine to Sit Supine to Sit Moderate Assistance,1 Person Assistance,Head of Bed Elevated,Bedrails PT-Transfer Assessment Sit to and From Stand Sit to and from Stand Standby Assistance,Contact Guard Assistance,1 Person Assistance,Use of Upper Extremities Equipment Transfer Assistive Device Gait Belt,Tripod Cane/Hurry Cane Orthotic/Prosthetic Devices or Brace: Yes Transfers Transfer Destination Chair Transfer Technique ambulated Transfer Ability Level of Assist Standby Assistance,Contact Guard Assistance,1 Person Assistance,Use of Upper Extremities Comments Mobility Comments pt supine in bed and agreeable tod o PT. obtained PLOF and home set up. pt stated that she had previous R and knee surgeries before that did not go well and has been having RLE problems due to this. pt completed supine to sit mod A. HOB elevated. no c/o dizziness. adjusted pt's sling. pt completed sit to stand SBA to CGA. pt ambulated in room using a hurrycane SBA to occasional CGA. presents with antalgic gait with shortened RLE and increase R knee flexion, due to this, pt unable to have R foot flat on the ground. pt able to ambulate ~ 35 ft. pt agreed to sit up on the chair. positioned pt on the chair. call light and table placed within reach. Gait Assessment Gait Gait Assistance Required: Standby Assistance,Contact Guard Assist Distance (Feet) 35 Able to Maintain Weight Bearing Status Yes During Gait Assistive Devices Assistive Device Gait Belt,Tripod Cane/Hurry Cane Orthotic/Prosthetic Devices or Brace: Yes Gait Deviations General Gait Pattern Antalgic,Decreased Stride Length,Decreased Feet Clearance,Step-to Gait Factors Limiting Gait Function Factors Limiting Gait Function Abnormal Tonal Influences, Decreased Strength,Limited Range of Motion,Pain,Poor Balance,Poor Safety Awareness PT-Balance Assessment Sitting Balance and Reactions Static Sitting Balance Ability Normal Dynamic Sitting Balance Ability Normal Standing Balance and Reactions Static Standing Balance Ability Fair Dynamic Standing Balance Ability Fair Device Used hurrycane M5 PT-IP Objective Assessments Start: 09/09/24 12:54 Freq: NEEDED Status: Active Protocol: Document 09/09/24 11:45 AB (Rec: 09/09/24 13:19 AB [id number]) Orientation Orientation/Cognition Level of Alertness Alert Orientation Name,Place,Situation Language Function Ability No Deficits Noted Safety Awareness Understands Safety Issues Memory Description No Deficits Noted Gross Range of Motion Lower Extremity ROM Impairments R knee flexion contracture Strength Lower Extremity Strength Assessment Right Impaired Hip 3+/5 Knee 4-/5 Coordination Assessment Gross Coordination Gross Coordination WNL Muscle Tone Muscle Tone WNL Yes M6 PT-IP Treatment Start: 09/09/24 12:54 Freq: NEEDED Status: Active Protocol: Document 09/09/24 11:45 AB (Rec: 09/09/24 13:19 AB [id number]) Physical Therapy Treatment Education Education Provided Precautions,Weight Bearing Status,Safety M7 PT-IP Assessment and Plan Start: 09/09/24 12:54 Freq: NEEDED Status: Active Protocol: Document 09/09/24 11:45 AB (Rec: 09/09/24 13:19 AB [id number]) PT Summary Assessment and Plan Potential Rehabilitation Potential Fair Status of Condition at Evaluation Evolving Summary Impairments Pain,ROM,Strength,Balance, Coordination,Sensation,Bed Mobility,Transfers,Gait, Activity Tolerance Assessment Summary pt is a 79 y/o F s/p fall and sustained a R shoulder dislocation s/p dislocation, R shoulder fx, R facial laceration, subarachnoid hemorrhage and multiple rib fxs. pt on a ling on R UE and presumed NWB due to fx. pt required mod A for bed mobility, SBA to CGA for transfers and ambulation using a hurrycane. pt lives alone but stated that her son/DIL may be able to stay with her to assist her if needed. If family is available to assist pt, pt may go home and will benefit from HHPT. Goals Bed Mobility Goal Independent Transfer Goal Independent,Cane Gait Goal Independent,Cane Gait Distance 150 Other Goals up/down 2 steps without rails SBA up/down 16 steps R rail ascending SBA Days to Meet Goals 10 Frequency of Treatment Frequency Of Treatment Once a Day Treatment Plan Physical Therapy Treatment Plan Bed Mobility Training,Transfer Training,Gait Training, Therapeutic Exercise,Balance Retraining,Post Op Education, Discharge Planning,Hot or Cold Pack,Neuromuscular Re-ed, Coordination Retraining,Manual Therapy Precautions Shoulder Precautions Sling Other Precautions Hazardous Drug precautions Weight Bearing Status Weight Bearing Status Non-Weight Bearing Allowed Weight Bearing Amount (enter % presumed NWB on RUE due to or #) (%) shoulder fx Recommendations To Nursing Amount of Assist Needed 1 Person Assist Discharge Recommendations PT Discharge Recommendations Home with 11/03 Assist Available,Home Health,SNF Rehab,Home vs SNF Transportation Needs at Discharge Private Vehicle,Wheelchair/ Cabulance
[2024-09-09 12:15] VITALS: BP 120/75; PULSE 92; RESP 16; TEMP 36.4; O2SAT 94
--- NOTE | 2024-09-09 13:45 | CM.DANOTE ---
Initial DCP Assessment Visit Note Reviewed EMR and team rounds for pt's medical status and updates. Met with pt at bedside to introduce self and role, pt was found to be awake, but somnolent, however was able to provide information re: her living situation and help she has for when she d/c's back home. Pt resides alone in her own home modified independently here in [place]. She has 3-adult children who are all physicians in [place], 2-of whom will be staying with her after d/c during her initial recovery period. They will also transport her once she's been medically stable for d/c. Payor: Medicare PCP: Ally Ponce Pt is a 79 year-old F who presented to the ED via her own private vehicle after she fell in her icy deck yesterday afternoon, resulting in a fractured elbow, femur, several broken ribs, and facial lacerations/bruising. She denies any CM assistance needs, is not wanting Home Health or any other services at d/c. Her kids have already been working to set-up OP PT. DCP will continue to monitor for any further evolving needs prior to her departure. Discharge Planning/Care Management CM Discharge Assessment Start: 09/09/24 13:42 Freq: Status: Active Protocol: Document 09/09/24 13:42 DPL (Rec: 09/09/24 13:45 DPL [id number]) Discharge Planning Assessment Assigned Thread Grinder Tool DONAL Joshua Advance Directives? Yes: Health Care Directive; DPOA For Health Care Advance Directives on File Yes History Provided By Patient,Medical Record Has Patient been admitted in last 30 No days? Prior Living Arrangements House Household Members none Type of transporation used prior to Drives own vehicle admit Independent with ADL's No: Modified independent with a 4WW indoors, and a cane outdoors. Is patient alert and oriented? Yes Comment N/A Caregiver for Another No DME Already Rented / Owned Bath Bench,Elevated Toilet Seat,Cane Comment 4WW Patient/Family Preference OP PT Therapy Barriers to Discharge No Discharge Plan Home Transportation Arrangement Children Referrals Initiated None needed Whiteboard Updated in Patient Room with Yes name and ext. # of Thread Grinder Tool Review Status In Process Please Provide Date Initial DC 09/09/24 Assessment Was Performed
[2024-09-09 16:00] VITALS: BP 118/69; PULSE 95; RESP 16; TEMP 36.9; O2SAT 93
--- NOTE | 2024-09-09 16:24 | OT.IPNOTE ---
Attempted OT eval and pt just got up earlier with nursing. Pt requesting to be seen tomorrow.
[2024-09-09 20:00] VITALS: BP 124/76; PULSE 94; RESP 18; TEMP 36.6; O2SAT 96
[2024-09-09] MEDS: ATORVASTATIN 20 MG TABLET 10 MG PO (21:08)
[2024-09-10 01:00] VITALS: BP 118/65; PULSE 88; RESP 18; TEMP 36.6; O2SAT 94
[2024-09-10] MEDS: HYDROCODONE/ACET 5/325 TABLET 2 TAB PO (01:15)
[2024-09-10] MEDS: SODIUM CHLORIDE 0.9% 1,000 ML 100 ML IV (02:30)
[2024-09-10] MEDS: diphenhydrAMINE 50 MG/ML VIAL 25 MG IV ×4 (02:31→20:52)
[2024-09-10 05:00] VITALS: BP 130/59; PULSE 92; RESP 22; TEMP 36.4; O2SAT 94
[2024-09-10 06:11] LABS: Add Manual Diff / Slide Review NO; Basophils Absolute Auto 100 /uL (0-100); Basophils Percent Auto 0.8 % (0-2); Eosinophils Absolute Auto 100 /uL (0-450); Eosinophils Percent Auto 1.1 % (2-4); Hematocrit 26.5 % (36-46); Hemoglobin 8.7 g/dL (12.0-16.0); Lymphocytes Absolute Auto 2900 /uL (1100-4500); Lymphocytes Percent Auto 25.9 % (25-40); Mean Corpuscular Hemoglobin 30.3 PG (26-34); Mean Corpuscular Volume 91.9 fL (80-100); Monocytes Absolute Auto 1000 /uL (0-900); Monocytes Percent Auto 9.2 % (3-14); Neutrophils Absolute Auto 7000 /uL (1500-7000); Platelet Count 186 X10^3/uL (150-400); Red Blood Cell Count 2.88 X10^6/uL (4.0-5.2); Red Cell Distribution Width 14.3 % (11.6-14.8); White Blood Cell Count 11.2 X10^3/uL (4.5-11.0)
[2024-09-10 06:24] LABS: Alanine Aminotransferase 248 IU/L (<35); Albumin 3.1 g/dL (3.5-5.0); Albumin Globulin Ratio 1.1 (1.0-2.8); Alkaline Phosphatase 66 U/L (38-126); Aspartate Aminotransferase 288 IU/L (14-36); BUN Creatinine Ratio 26.1 (6-22); Bilirubin Total 0.8 mg/dL (0.2-1.3); Blood Urea Nitrogen 18 mg/dL (7-17); Calcium 8.3 mg/dL (8.4-10.2); Carbon Dioxide 25 mmol/L (22-32); Chloride 110 mmol/L (98-107); Estimated Glomerular Filt Rate > 60 mL/min (>60); Globulin 2.8 g/dL (1.7-4.1); Glucose 91 mg/dL (80-110); HEMOLYSIS < 15 (0-50); Potassium 3.6 mmol/L (3.4-5.1); Sodium 137 mmol/L (137-145); Total Protein 5.9 g/dL (6.3-8.2)
[2024-09-10 06:31] LABS: Creatine Kinase 3110 U/L (30-135)
--- NOTE | 2024-09-10 07:28 | PM.PN.1 ---
Subjective Subjective Interval history: Admitted with a fall, SAH, shoulder fracture, and rib fractures. H/O alcohol use. S: She was doing well, denies a headache. No visual problems. She has well-controlled rib and shoulder pain. She developed pruritus with [place], this was switched oxycodone this morning which she was doing better with. She denies any cough, shortness a breath, or fevers Exam Vital Signs (past 8 hours): - 09/10/24 01:00 09/10/24 05:00 Temperature 97.9 F 97.5 F L Pulse Rate 88 92 H Respiratory Rate 18 22 Blood Pressure 118/65 130/59 L Pulse Oximetry 94 94 Oxygen Flow Rate 0 0 Oxygen Delivery Method Room Air Oxygen Flow Rate 0 Narrative Exam Narrative: NAD, alert and oriented. Fluent speech. Extensive bruising over the right side of the face in the right periorbital area Lungs are clear, normal rate and effort. Heart is regular, loud systolic murmur with no gallop or rub. Abdomen is soft, non distended. Extremities are free of edema. Objective Labs 09/10/24 06:00 09/10/24 06:00 Labs: Laboratory Results - last 24 hr 09/10/24 06:00 WBC 11.2 H RBC 2.88 L Hgb 8.7 L Hct 26.5 L MCV 91.9 MCH 30.3 MCHC 33.0 RDW 14.3 Plt Count 186 Neut % (Auto) 63.0 Lymph % (Auto) 25.9 [place] % (Auto) 9.2 Eos % (Auto) 1.1 L Baso % (Auto) 0.8 Neut # (Auto) 7000 Lymph # (Auto) 2900 [place] # (Auto) 1000 H Eos # (Auto) 100 Baso # (Auto) 100 Sodium 137 Potassium 3.6 Chloride 110 H Carbon Dioxide 25 BUN 18 H Creatinine 0.69 Estimated GFR > 60 BUN/Creatinine Ratio 26.1 H Glucose 91 Calcium 8.3 L Total Bilirubin 0.8 AST 288 H ALT 248 H Alkaline Phosphatase 66 Total Creatine Kinase 3110 H D Total Protein 5.9 L Albumin 3.1 L Globulin 2.8 Albumin/Globulin Ratio 1.1 PFSH Medical History Daily consumption of alcohol Chronic pansinusitis Nasal polyp Nasal obstruction Easy bruisability Osteoarthritis HLD (hyperlipidemia) HTN (hypertension) Surgical History History of total knee arthroplasty 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 Traumatic rhabdomyolysis, present on admission and active. -patient reports lying for 20 minutes on the ground before driving herself to the hospital -CK level 3188, GFR 40, creatinine 1.34. -CK 6128 09/09, creatinine 0.78. It is unclear why the CK is still rising. Clinically she is improving. -initial hypotension responded to 1 L normal saline -follow renal function and continue maintenance IV fluid -Sinus Tachycardia noted on Telemetry and EKG (P waves are in the downslope of the T wave). 2. Chronic kidney disease with possible TONE, present on admission and improving. -follow creatinine, 1.34 on admission, 0.78 on follow up. 3. Traumatic Bifrontal subarachnoid hemorrhages, present on admission and improving. -serial CTs showed no significant change. -ED reviewed this condition with Neurosurgery who suggested repeat CT in 6 weeks with PCP -no detectable neurologic abnormalities, follow closely. 4. Right shoulder anterior dislocation and humeral head fracture, present on admission and improving. -per discussion with Dr. Jean-Baptiste the patient underwent sedated correction of her dislocated shoulder in the emergency department with Dr. Harrison -follow-up will be with Orthopedics as significant rotator cuff injury is suspected. -Shoulder immobilizer at all times. 5. Multiple right sided rib fractures (7), present on admission and improving. -Right ribs 3-9. No pneumothorax. -Hgb dropped from 11.6 to 9.7, follow. 6. Right facial laceration, present on admission and active. -repaired in the ED 7. Daily alcohol use, stable. -alcohol level is 0 on admission. -elevated liver enzymes with AST 288 and ALT 216, follow 8. Elevated liver enzymes, present on admission and active. -AST [place] to 376 and ALt [place]enta to 232 on 09/12 -No liver injury on CT 09/12 -possibly related to daily 2 glasses of wine - alcohol use. No Hepatitis risk factors. -follow Plan: -discontinue IV fluid -oxycodone as needed for pain -continue to ambulate, physical therapy -discharge planning, she prefers home with family support. She still may need residential facility. DVT prevention with SCD, avoid anticoagulation due to subarachnoid hemorrhage Her adult sons are her backup decision makers. Time-Based Coding :: [TOTAL MINUTES] spent with patient and on the chart (including review of chart, obtaining history, exam, reviewing outside data, placing orders, documenting exam and treatment plan, and counseling patient) on [DATE].
[2024-09-10] MEDS: ACETAMINOPHEN 325 MG TABLET 650 MG PO (07:46)
[2024-09-10] MEDS: OXYCODONE IR 5 MG TABLET PO ×5 (07:47→23:47)
[2024-09-10] MEDS: DOCUSATE 100 MG CAPSULE PO ×2 (08:27→20:52)
[2024-09-10 09:00] VITALS: BP 141/73; PULSE 93; RESP 14; TEMP 36.8; O2SAT 97
[2024-09-10] MEDS: polyethylene glycoL 3350 17 GM POWD.PACK PO (09:14)
--- NOTE | 2024-09-10 12:59 | PT-IP ANOTE ---
PT and OT attempt to coordinate a family training with pt and her son x3 this a.m. between the hours when pt states son will arrive. Upon third attempt, pt states that son has left for the day and she is staying for a couple of more days. Con't PT efforts for mobility today and family training may not be possible if family is not available.
--- NOTE | 2024-09-10 13:12 | OT.IP.EVAL ---
Current Diagnoses Traumatic ischemia of muscle, initial encounter (09/08/24) Past Medical History (Last Reviewed 09/10/24 @ 07:30 by Bro Mahoney MD) Chronic pansinusitis Daily consumption of alcohol Easy bruisability HLD (hyperlipidemia) HTN (hypertension) Nasal obstruction Nasal polyp Osteoarthritis Surgical History (Last Reviewed 09/10/24 @ 07:30 by Bro Mahoney MD) History of carpal tunnel surgery of right wrist (~2015) History of dilation and curettage (~1972) History of lumpectomy of right breast (~1984) History of total knee arthroplasty History of total right knee replacement (05/29/19) Hx of arthroscopy of right knee Hx of tonsillectomy Occupational Therapy Inpatient Evaluation/Re-Eval M1 PT/OT-IP Prior Functional Status Start: 09/09/24 12:54 Freq: NEEDED Status: Active Protocol: Document 09/10/24 13:31 [facility] (Rec: 09/10/24 13:49 [facility] [id number]) Medical Review Prior Functional Status Medical History Reviewed Yes Communication able to make needs known Mobility and Gait pt stated that she was modified independent with all mobilities and ambulation using s 4WW indoors and a hurrycane for outdoor ambulation Activities of Daily Living and IADL's Pt was independent with her needs. Social History Household Members none Living Arrangements House Number of Floors (Floors) Two Floors Number of Stairs To Enter/Railing? 2 steps without rails from the garage but pt stated that she holds on to a fridge handle for support 16 steps R rail to get to 2nd level bedroom Home Environment Standard Height Toilet,Walk in Shower Home Equipment Four Wheel Walker,Raised Toilet Seat w/Armrests,Shower Seat with Backrest,Grab Bars In Shower Additional Social History Comment pt has a hurrycane pt lives alone but stated that her grand daughter to stay with her and move the bed downstairs. M2 OT-IP Current Condition Start: 09/10/24 13:30 Freq: Status: Active Protocol: Document 09/10/24 13:31 [facility] (Rec: 09/10/24 13:49 [facility] [id number]) Occupational Therapy Current Condition Current Condition Evaluation Date 09/10/24 Treatment Diagnosis GLF, right humerus fx, rib fx, right shoulder dislocation Diagnosis Onset Date 09/08/24 M3 OT- IP Subjective and Pain Start: 09/10/24 13:30 Freq: Status: Active Protocol: Document 09/10/24 13:31 [facility] (Rec: 09/10/24 13:49 [facility] [id number]) OT- Subjective Occupational Therapy Visit Type Type Initial Evaluation Visit Start Time 13:12 Visit Stop Time 13:30 Occupational Therapy Visit Comments Patient Comments Pt wanting to use the bathroom . Patient/Caregiver Goals TO go home. OT Pain Assessment Pain When Pain Assessed During Mobility Pain Present Pain Present Pain Reported M4 OT- IP ADL's Start: 09/10/24 13:30 Freq: Status: Active Protocol: Document 09/10/24 13:31 [facility] (Rec: 09/10/24 13:49 [facility] [id number]) OT [id number] Comments OT Self-Feeding Comments Assist with set-up. OT ADL-Dressing General Eval Lower Body Dressing Ability Moderate Assistance Comments OT Dressing Comments Pt will need assist for sling management and clothing. OT ADL-Toileting General Evaluation Toileting Ability Standby Assistance Comments OT Toileting Comments Pt able to do her own hygiene and pull up and down her brief on her own with CGA. OT ADL-Bathing Comments OT Bathing Comments Pt will need asisst. M5 OT- IP IADL's Start: 09/10/24 13:30 Freq: Status: Active Protocol: Document 09/10/24 13:31 [facility] (Rec: 09/10/24 13:49 [facility] [id number]) OT-Instrumental Activities of Daily Living Home Safety Awareness Awareness of Need for Assistance at Home Good Awareness Ability to Problem Solve Emergency Able to Problem Solve Situations Medication Management Medication Management Comments Pt will benefit from supervision. Money Management Money Management Comments Pt will benefit from supervision. Meal Preparation Meal Preparation Caregiver Provides Assist Meal Preparation Comments Pt will need assist. Assembler Garment Form Assembler Garment Form Caregiver Provides Assist Assembler Garment Form Comments Pt will need assist. M6 OT- IP Functional Cognition Start: 09/10/24 13:30 Freq: Status: Active Protocol: Document 09/10/24 13:31 [facility] (Rec: 09/10/24 13:49 [facility] [id number]) Cognitive Factors Limiting Selfcare Function Cognitive Ability Level of Alertness Alert Patient Orientation Name,Place,Situation Attention Span Ability Capable of Focused Attention, Capable of Sustained Attention Ability to Follow Commands Able to Follow Multi-Step Commands Cognitive Comments Cognitive Assessment Comments Pt feels that she is doing fine but not able to recall what side of the recliner at home has the level to pull up on. Suggested pt do SLUMS but pt refusing at this time and insists that she is fine. OT- Vision and Hearing OT- Vision Assessment Vision Assessment Comments NOt able to complete as pt wanting to be left alone after toileting - to further assess . M7 OT- IP Mobility and Balance Start: 09/10/24 13:30 Freq: Status: Active Protocol: Document 09/10/24 13:31 [facility] (Rec: 09/10/24 13:49 [facility] [id number]) OT- Bed Mobility Assessment Sit to Supine Sit to Supine Assist Moderate Assistance OT-Transfer Assessment Sit to and From Stand Sit to and from Stand Standby Assistance,Contact Guard Assistance Transfers Transfer Ability Contact Guard Assistance Technique Transfer Destination Bed,Toilet Transfer Technique Stand Step Pivot Devices Transfer Assistive Devices Gait Belt,Tripod Cane/Hurry Cane Comments Mobility Comments CGA to stand when able to push up with her LUE on grab bar/ surfaces. Pt will need more assist from lower surfaces. Suggested pt may want to sleep in the recliner. OT- Balance Assessment Sitting Balance and Reactions Static Sitting Balance Ability Good Dynamic Sitting Balance Ability Good Standing Balance and Reactions Static Standing Balance Ability Fair Dynamic Standing Balance Ability Fair M8 OT- IP Objective Assessments Start: 09/10/24 13:30 Freq: Status: Active Protocol: Document 09/10/24 13:31 [facility] (Rec: 09/10/24 13:49 [facility] [id number]) OT Gross Range of Motion Upper Extremity Range of Motion Assessment Right Impaired OT Strength Upper Extremity Strength Assessment Right Impaired M9 OT- IP Assessment and Plan Start: 09/10/24 13:30 Freq: Status: Active Protocol: Document 09/10/24 13:31 [facility] (Rec: 09/10/24 13:49 [facility] [id number]) OT Summary Assessment and Plan Potential Rehabilitation Potential Excellent Analytic Complexity at Evaluation High Summary OT Impairments Pain,Range of Motion,Strength, Balance,Functional Mobility, Self-Feeding,Grooming,Dressing ,Toileting,Bathing,Toilet Transfers,Shower Transfers, Activity Tolerance Progress Towards Goals Progressing Toward Goals Assessment Summary Pt high complexity and main barriers are steps, pain, and will be needing assist for dressing and bathing need along with IADL needs. Pt is moving well with use of hurry cane at this time with CGA. Able to suggest equipment needs of BSC over the toilet or next to the bed/recliner, use of cell phone to call for assist, and may be best to sleep in the recliner. Pt is insistent that she will be fine at home with her family to assist. Pt not wanting any home health at this time. It would be good to go over sling management needs with her family and caregiver training as needed. TO try SLUMS if appropriate as pt did have a subarachnoid hemorrhage. Pt to go home with 24/7 assist. Home health would be beneficial otherwise to have outpt PT when able after healing. Goals Self-Feeding Goal Standby Assistance Grooming Goal Standby Assistance Dressing Goal Moderate Assistance Toileting Goal Standby Assistance Bathing Goal Moderate Assistance Toilet Transfer Goal Independent Shower Transfer Goal Standby Assistance Days to Meet Goals 7 Frequency of Treatment Other frequency 5x/week Discharge Recommendations OT Discharge Recommendations Home with 24/7 Assist Available,Home Health Transportation Needs at Discharge Private Vehicle
--- NOTE | 2024-09-10 13:28 | PT.IPTN ---
Current Diagnoses Traumatic ischemia of muscle, initial encounter (09/08/24) Physical Therapy Treatment Note M2 PT-IP Current Condition Start: 09/09/24 12:54 Freq: NEEDED Status: Active Protocol: Document 09/09/24 11:45 AB (Rec: 09/09/24 13:19 AB [id number]) Physical Therapy Current Condition Current Condition Evaluation Date 09/09/24 Treatment Diagnosis R shld dislocation s/p reduction; R shld fx; rib fxs; difficulty in walking Onset Date 09/08/24 M3 PT-IP Subjective Start: 09/09/24 12:54 Freq: NEEDED Status: Active Protocol: Document 09/10/24 12:59 MB (Rec: 09/10/24 13:28 MB [id number]) Subjective Physical Therapy Visit Type Type Treatment Note Visit Start Time 12:59 Visit Stop Time 13:22 Number of RAW STOCK DYEING MACHINE TENDER Visits 0 Physical Therapy Visit Comments Patient Comments Pt is agreeable to PT, no family available. Therapy Pain Assessment Pain When Pain Assessed During Mobility Pain Present Pain Present Pain Reported Location Right Ribs Scale Used Not rated Right Shoulder Scale Used Not rated M4 PT-IP Mobility and Gait Start: 09/09/24 12:54 Freq: NEEDED Status: Active Protocol: Document 09/10/24 12:59 MB (Rec: 09/10/24 13:28 MB [id number]) PT-Bed Mobility Assessment Supine to Sit Supine to Sit Standby Assistance,Head of Bed Elevated Scooting Scooting to Edge of Bed Standby Assistance PT-Transfer Assessment Sit to and From Stand Sit to and from Stand Contact Guard Assistance,1 Person Assistance,Use of Upper Extremities Equipment Transfer Assistive Device Gait Belt,Tripod Cane/Hurry Cane Orthotic/Prosthetic Devices or Brace: Yes Transfers Transfer Destination Toilet Transfer Technique Ambulation Transfer Ability Level of Assist Contact Guard Assistance,1 Person Assistance,Use of Upper Extremities Comments Mobility Comments PT places gait belt lower and keeps CGA hold assist of gait belt throughout gait Gait Assessment Gait Gait Assistance Required: Contact Guard Assist,1 Person Assist Distance (Feet) 75 Able to Maintain Weight Bearing Status Yes During Gait Assistive Devices Assistive Device Gait Belt,Tripod Cane/Hurry Cane Orthotic/Prosthetic Devices or Brace: Yes Gait Deviations General Gait Pattern Antalgic,Decreased Stride Length,Decreased Feet Clearance,Step-to Gait Factors Limiting Gait Function Factors Limiting Gait Function Pain,Poor Balance Comments Gait Comments Pt moving well, gait 75'x1 and 5'x1, 20'x1 with cane left hand, right LE has chronic changes and flexion after surgeries and gait is step-to in nature Stair Climbing Assessment Evaluation Level of Assist On Stairs Contact Guard Assistance Devices Stair Climbing Assistive Devices Right Railing Technique/Endurance Stair Climbing Direction Ascend and Descend Stair Climbing Technique Step to Step Number of Steps Climbed 3 Comments Stair Climbing Comments 1 PT-Balance Assessment Sitting Balance and Reactions Static Sitting Balance Ability Normal Dynamic Sitting Balance Ability Normal Standing Balance and Reactions Static Standing Balance Ability Fair Dynamic Standing Balance Ability Fair Device Used Locally M5 PT-IP Objective Assessments Start: 09/09/24 12:54 Freq: NEEDED Status: Active Protocol: Document 09/09/24 11:45 AB (Rec: 09/09/24 13:19 AB [id number]) Orientation Orientation/Cognition Level of Alertness Alert Orientation Name,Place,Situation Language Function Ability No Deficits Noted Safety Awareness Understands Safety Issues Memory Description No Deficits Noted Gross Range of Motion Lower Extremity ROM Impairments R knee flexion contracture Strength Lower Extremity Strength Assessment Right Impaired Hip 3+/5 Knee 4-/5 Coordination Assessment Gross Coordination Gross Coordination WNL Muscle Tone Muscle Tone WNL Yes M6 PT-IP Treatment Start: 09/09/24 12:54 Freq: NEEDED Status: Active Protocol: Document 09/10/24 12:59 MB (Rec: 09/10/24 13:28 MB [id number]) Physical Therapy Treatment Education Education Provided Precautions,Safety M7 PT-IP Assessment and Plan Start: 09/09/24 12:54 Freq: NEEDED Status: Active Protocol: Document 09/10/24 12:59 MB (Rec: 09/10/24 13:28 MB [id number]) PT Summary Assessment and Plan Potential Rehabilitation Potential Good Status of Condition at Evaluation Evolving Summary Impairments Pain,ROM,Strength,Balance, Coordination,Sensation,Bed Mobility,Transfers,Gait, Activity Tolerance Progress Towards Goals Progressing Toward Goals Assessment Summary Pt is doing great, progressing with gait and steps. Does not want HHPT and grand-daughter to stay with her at d/c. Goals Bed Mobility Goal Independent Transfer Goal Independent,Cane Gait Goal Independent,Cane Gait Distance 150 Other Goals up/down 2 steps without rails SBA up/down 16 steps R rail ascending SBA Days to Meet Goals 10 Frequency of Treatment Frequency Of Treatment Once a Day Treatment Plan Physical Therapy Treatment Plan Bed Mobility Training,Transfer Training,Gait Training, Therapeutic Exercise,Balance Retraining,Post Op Education, Discharge Planning,Hot or Cold Pack,Neuromuscular Re-ed, Coordination Retraining,Manual Therapy Precautions Shoulder Precautions Sling Other Precautions Hazardous Drug precautions Weight Bearing Status Weight Bearing Status Non-Weight Bearing Allowed Weight Bearing Amount (enter % presumed NWB on RUE due to or #) (%) shoulder fx Recommendations To Nursing Amount of Assist Needed 1 Person Assist Discharge Recommendations PT Discharge Recommendations Home with Assistance Transportation Needs at Discharge Private Vehicle
[2024-09-10 16:38] VITALS: BP 120/85; PULSE 98; RESP 15; TEMP 36.7; O2SAT 96
[2024-09-10 19:59] VITALS: BP 135/76; PULSE 97; RESP 19; TEMP 37.1; O2SAT 94
[2024-09-10] MEDS: ATORVASTATIN 20 MG TABLET 10 MG PO (20:52)
[2024-09-11 00:04] VITALS: BP 112/80; PULSE 101; RESP 21; TEMP 36.4; O2SAT 93
[2024-09-11] MEDS: diphenhydrAMINE 50 MG/ML VIAL 25 MG IV ×2 (02:05→20:15)
[2024-09-11 04:00] VITALS: BP 148/80; PULSE 83; RESP 22; TEMP 37; O2SAT 94
--- NOTE | 2024-09-11 07:30 | P.PN_ITS ---
Subjective Subjective Interval history: Summary: admitted with a fall, SAH, shoulder fracture, and rib fractures. H/O alcohol use. She has been declining retirement facility and wants to stay at her house in [place]. Her 2 sons are physicians in [place], she does not want to go to their house is is they are not equipped to take care of her. Her right arm swelled up in his much more ecchymotic overnight. She does have a humerus head fracture. S: A fair amount of pain with breathing and coughing from her rib fractures. She was not short of breath, no fevers. No numbness of the hand. Exam Vital Signs (past 8 hours): - 09/11/24 00:04 09/11/24 04:00 Temperature 97.5 F L 98.6 F Pulse Rate 101 H 83 Respiratory Rate 21 22 Blood Pressure 112/80 148/80 H Pulse Oximetry 93 94 Oxygen Flow Rate 0 0 Oxygen Delivery Method Room Air Oxygen Flow Rate 0 Narrative Exam Narrative: NAD, alert and oriented. Fluent speech. Lungs are clear, normal rate and effort. Heart is regular, no murmur gallop or rub. Abdomen is soft, non distended. Extremities are free of edema. Her right arm is very swollen including the hand and has a ecchymosis throughout. She has a lot of hematoma over the right side of her face and right periorbital area. Objective Labs 09/11/24 08:32 09/11/24 08:32 [facility] Medical History Daily consumption of alcohol Chronic pansinusitis Nasal polyp Nasal obstruction Easy bruisability Osteoarthritis HLD (hyperlipidemia) HTN (hypertension) Surgical History History of total knee arthroplasty 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 Traumatic rhabdomyolysis, present on admission and active. -patient reports lying for 20 minutes on the ground before driving herself to the hospital 2. Chronic kidney disease with possible TONE, present on admission and improving. -follow creatinine, 1.34 on admission, 0.78 on follow up. 3. Traumatic Bifrontal subarachnoid hemorrhages, present on admission and improving. -serial CTs showed no significant change. 4. Right shoulder anterior dislocation and humeral head fracture, present on admission and improving. -per discussion with Dr. Jean-Baptiste the patient underwent sedated correction of her dislocated shoulder in the emergency department with Dr. Harrison -follow-up will be with Orthopedics as significant rotator cuff injury is suspected. -Shoulder immobilizer at all times. 5. Multiple right sided rib fractures (7), present on admission and improving. -Right ribs 3-9. No pneumothorax. -Hgb dropped from 11.6 to 9.7, follow. 6. Right facial laceration, present on admission and active. -repaired in the ED 7. Daily alcohol use, stable. -alcohol level is 0 on admission. -elevated liver enzymes with AST 288 and ALT 216, follow 8. Elevated liver enzymes, present on admission and active. -AST vicenta to 376 and ALt vicenta to 232 on 09/12 -No liver injury on CT 09/12 9. Increased right arm swelling and ecchymosis, present on admission and worse. Plan: -right wrist x-ray, and right arm ultrasound to rule out fracture and DVT. -oxycodone as needed for pain -continue to ambulate, physical therapy -discharge planning, she prefers home with family support. She still may need retirement facility. DVT prevention with SCD, avoid anticoagulation due to subarachnoid hemorrhage Her adult sons are her backup decision makers. Time-Based Coding :: [TOTAL MINUTES] spent with patient and on the chart (including review of chart, obtaining history, exam, reviewing outside data, placing orders, documenting exam and treatment plan, and counseling patient) on [DATE].
[2024-09-11 08:00] VITALS: BP 156/65; PULSE 99; RESP 24; TEMP 36.6; O2SAT 95
[2024-09-11 08:47] LABS: Add Manual Diff / Slide Review NO; Basophils Absolute Auto 200 /uL (0-100); Basophils Percent Auto 1.9 % (0-2); Eosinophils Absolute Auto 200 /uL (0-450); Eosinophils Percent Auto 1.6 % (2-4); Hematocrit 26.4 % (36-46); Hemoglobin 8.8 g/dL (12.0-16.0); Lymphocytes Absolute Auto 1800 /uL (1100-4500); Lymphocytes Percent Auto 16.3 % (25-40); Mean Corpuscular HGB Conc 33.3 % (30-36); Mean Corpuscular Hemoglobin 30.7 PG (26-34); Mean Corpuscular Volume 92.2 fL (80-100); Monocytes Absolute Auto 900 /uL (0-900); Monocytes Percent Auto 8.6 % (3-14); Neutrophils Absolute Auto 7900 /uL (1500-7000); Neutrophils Percent Auto 71.6 % (50-75); Platelet Count 213 X10^3/uL (150-400); Red Blood Cell Count 2.87 X10^6/uL (4.0-5.2); Red Cell Distribution Width 14.4 % (11.6-14.8); White Blood Cell Count 11.1 X10^3/uL (4.5-11.0)
[2024-09-11] MEDS: polyethylene glycoL 3350 17 GM POWD.PACK PO (08:51)
[2024-09-11] MEDS: DOCUSATE 100 MG CAPSULE PO ×2 (08:51→20:15)
[2024-09-11 09:04] LABS: Alanine Aminotransferase 278 IU/L (<35); Albumin 3.2 g/dL (3.5-5.0); Albumin Globulin Ratio 1.1 (1.0-2.8); Alkaline Phosphatase 65 U/L (38-126); Aspartate Aminotransferase 230 IU/L (14-36); BUN Creatinine Ratio 19.3 (6-22); Bilirubin Total 0.8 mg/dL (0.2-1.3); Blood Urea Nitrogen 11 mg/dL (7-17); Calcium 8.7 mg/dL (8.4-10.2); Carbon Dioxide 30 mmol/L (22-32); Chloride 105 mmol/L (98-107); Estimated Glomerular Filt Rate > 60 mL/min (>60); Globulin 2.8 g/dL (1.7-4.1); Glucose 91 mg/dL (80-110); HEMOLYSIS < 15 (0-50); Potassium 3.9 mmol/L (3.4-5.1); Sodium 135 mmol/L (137-145)
--- NOTE | 2024-09-11 09:50 | OT.IP.TRT ---
Current Diagnoses Traumatic ischemia of muscle, initial encounter (09/08/24) Occupational Therapy Treatment Note M2 OT-IP Current Condition Start: 09/10/24 13:30 Freq: Status: Active Protocol: Document 09/10/24 13:31 [facility] (Rec: 09/10/24 13:49 [facility] [id number]) Occupational Therapy Current Condition Current Condition Evaluation Date 09/10/24 Treatment Diagnosis GLF, right humerus fx, rib fx, right shouler dislocation Diagnosis Onset Date 09/08/24 M3 OT- IP Subjective and Pain Start: 09/10/24 13:30 Freq: Status: Active Protocol: Document 09/11/24 10:19 CGR (Rec: 09/11/24 10:31 [facility]GR [id number]) OT- Subjective Occupational Therapy Visit Type Type Treatment Note Visit Start Time 09:31 Visit Stop Time 09:50 Notes Pt just retruned from toilet to bed when OT entered. M4 OT- IP ADL's Start: 09/10/24 13:30 Freq: Status: Active Protocol: Document 09/11/24 10:19 CGR (Rec: 09/11/24 10:31 CGR [id number]) OT [id number] Comments OT Self-Feeding Comments Not meal time OT ADL-Grooming Comments OT Grooming Comments Pt declined OT ADL-Oral Care Comments Oral Care Comments Pt declined OT ADL-Dressing Comments OT Dressing Comments Not performed OT ADL-Toileting Comments OT Toileting Comments Pt just returned from toileting where she was unable to have BM. OT ADL-Bathing Comments OT Bathing Comments not performed M5 OT- IP IADL's Start: 09/10/24 13:30 Freq: Status: Active Protocol: Document 09/10/24 13:31 [facility] (Rec: 09/10/24 13:49 [facility] [id number]) OT-Instrumental Activities of Daily Living Home Safety Awareness Awareness of Need for Assistance at Home Good Awareness Ability to Problem Solve Emergency Able to Problem Solve Situations Medication Management Medication Management Comments Pt will benefit from supervision. Money Management Money Management Comments Pt will benefit from supervision. Meal Preparation Meal Preparation Caregiver Provides Assist Meal Preparation Comments Pt will need assist. Ship'S Engineer Ship'S Engineer Caregiver Provides Assist Ship'S Engineer Comments Pt will need assist. M6 OT- IP Functional Cognition Start: 09/10/24 13:30 Freq: Status: Active Protocol: Document 09/11/24 10:19 CGR (Rec: 09/11/24 10:31 CGR [id number]) Cognitive Factors Limiting Selfcare Function Cognitive Comments Cognitive Assessment Comments Pt declined SLUMS M7 OT- IP Mobility and Balance Start: 09/10/24 13:30 Freq: Status: Active Protocol: Document 09/11/24 10:19 CGR (Rec: 09/11/24 10:31 [facility] [id number]) OT-Transfer Assessment Comments Mobility Comments Mobility not assessed in todays session as pt just returned to bed from going to the bathroom. Per nursing, pt transfers with SBA and use of cane to the toielt and back to bed. M8 OT- IP Objective Assessments Start: 09/10/24 13:30 Freq: Status: Active Protocol: Document 09/10/24 13:31 [facility] (Rec: 09/10/24 13:49 [facility] [id number]) OT Gross Range of Motion Upper Extremity Range of Motion Assessment Right Impaired OT Strength Upper Extremity Strength Assessment Right Impaired M9 OT- IP Assessment and Plan Start: 09/10/24 13:30 Freq: Status: Active Protocol: Document 09/11/24 10:19 CGR (Rec: 09/11/24 10:31 CGR [id number]) OT Summary Assessment and Plan Potential Rehabilitation Potential Excellent Analytic Complexity at Evaluation High Summary OT Impairments Pain,Range of Motion,Strength, Balance,Functional Mobility, Self-Feeding,Grooming,Dressing ,Toileting,Bathing,Toilet Transfers,Shower Transfers, Activity Tolerance Progress Towards Goals Progressing Toward Goals Assessment Summary Pt high complexity and main barriers are steps, pain, and will be needing assist for dressing and bathing need along with IADL needs. Pt with new onset R hand edema and possible wound to the underside of her R arm that is weeping. Pt educated on edema management techniques including petting her hand with movement proximally to help movement of fluids out of the hand and into the arm. Treatment successful with noticeable reduction in R hand edema. Pt educated on C position of her hand and provided with rolled towel and assisted into positioning fo the R arm for better edema management. Pt appears cognitively clear throughout session but fatigued. Pt states that family is figuring out who will come and provide practice business asst support at home with patient upon discharge, but likely pt's granddaughter. Goals Self-Feeding Goal Standby Assistance Grooming Goal Standby Assistance Dressing Goal Moderate Assistance Toileting Goal Standby Assistance Bathing Goal Moderate Assistance Toilet Transfer Goal Independent Shower Transfer Goal Standby Assistance Days to Meet Goals 7 Frequency of Treatment Other frequency 5x/week Treatment Plan OT Treatment Plan ADL Training,Functional Mobility,Patient/Family Education,Discharge Planning Other Treatment Recommendations and Next sling management, follow up on Treatment Focus wrist pain, ADLs for home independence. Discharge Recommendations OT Discharge Recommendations Home with 24/ Assist Available,Home Health Transportation Needs at Discharge Private Vehicle
--- NOTE | 2024-09-11 10:46 | DIET.CONS ---
Dietary Consultation Note Admission Date: 09/08/2024 17:35 Assessment: 79 y F admitted after fall. RD screened for low MNA. Met with pt at bedside. Reports appetite is slightly less than normal last 2 days. No changes in appetite before admission. Reports 3 meals per day and cooking for self. Reports around a 10 lb weight loss back in October, unintentional. Pt reports glad she lost the weight and expresses she doesn't want the weight back. BMI less than ideal BMI of 23 for age. Reports weight since has been consistently 123 lb (55.8 kg). Avg recorded PO intakes 70%, DFM reviewed. No nutritional interventions needed. Will continue to monitor PO intakes Ht: 165.1 cm Wt: 55.792 kg BMI: 20.5 UBW: 60 kg 10/09/22 Last BM: 09/08/24 (09/08/24 21:11) MNA: 10 Pan Score: 21 Diet: 09/09/24 Breakfast General (Regular) Diet Diet Modifications: Nutrition Percent Meal Consumed 75% 09/09/24 18:00 Percent Meal Consumed 50% 09/09/24 12:37 Labs: RBC 2.87 X10^6/uL (4.0-5.2) L 09/11/24 08:32 Hgb 8.8 g/dL (12.0-16.0) L 09/11/24 08:32 Hct 26.4 % (36-46) L 09/11/24 08:32 Creatinine 0.57 mg/dL (0.52-1.04) 09/11/24 08:32 NT-Pro-B Natriuret Pep 795 pg/mL (<450) H 09/08/24 14:35 Electronically Signed by: Shanae Connell 09/11/24 10:46 Clinical Dietitian [address] [place] [address]
--- NOTE | 2024-09-11 10:53 | DI.RAD.S_ITS ---
PROCEDURE: XR WRIST RT 2V INDICATIONS: swelling TECHNIQUE: 2 views of the wrist were acquired. COMPARISON: None. FINDINGS: Bones: No fractures or dislocations. No suspicious bony lesions. 1st CMC joint space narrowing with associated osteophytosis and sclerosis. Soft tissues: No suspicious soft tissue calcifications. IMPRESSION: No acute bony abnormality. 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 Dictated by: Kee Cotton M.D. on 09/11/2024 at 11:46 Approved by: Kee Cotton M.D. on 09/11/2024 at 11:47
--- NOTE | 2024-09-11 11:58 | CM.DPC ---
DCP Continued: Reviewed EMR and team rounds for pt?s medical status. Per hospitalist, pt might require SNF Rehab before discharge home. DCP spoke with pt, introduced self and role. Pt found in bed, states she understands SNF will still have to be a possible option as she recovers. Pt stated preference for [facility] only and no other facilities in [place] or [place] at this time. DCP sent referral to [facility], it is reported there are no female beds available until next week. Plan: Anticipating SNF vs. Home plan, pending pt progress - still not medically cleared at this time. CM Team will continue to follow for coordination of discharge plans. AHMET Cherry
[2024-09-11 12:00] VITALS: BP 130/70; PULSE 90; RESP 22; TEMP 36.7; O2SAT 96
--- NOTE | 2024-09-11 12:33 | PT-IP ANOTE ---
checked on pt this morning and declined PT. agreed for PT to check back later today.
--- NOTE | 2024-09-11 14:17 | PT-IP ANOTE ---
checked back on pt and refused PT again. stated that she just got settled back to bed and does not want to do any PT.
[2024-09-11] MEDS: OXYCODONE IR 5 MG TABLET PO ×2 (15:37→20:15)
[2024-09-11 16:00] VITALS: BP 140/80; PULSE 97; RESP 22; TEMP 36.8; O2SAT 95
[2024-09-11 20:00] VITALS: BP 140/86; PULSE 92; RESP 19; TEMP 36.4; O2SAT 94
[2024-09-12] VITALS: BP 136/72; PULSE 86; RESP 18; TEMP 36.6; O2SAT 93
[2024-09-12 04:00] VITALS: BP 140/68; PULSE 88; RESP 19; TEMP 36.7; O2SAT 94
[2024-09-12 08:00] VITALS: BP 150/74; PULSE 95; RESP 18; TEMP 36.8; O2SAT 95
[2024-09-12] MEDS: OXYCODONE IR 5 MG TABLET PO ×4 (08:00→21:30)
[2024-09-12] MEDS: diphenhydrAMINE 50 MG/ML VIAL 25 MG IV ×3 (08:00→21:30)
[2024-09-12] MEDS: polyethylene glycoL 3350 17 GM POWD.PACK PO (08:23)
[2024-09-12] MEDS: DOCUSATE 100 MG CAPSULE PO ×2 (08:23→20:30)
--- NOTE | 2024-09-12 11:50 | CM.DPC ---
DCP SNF Planning: Per MD, pt making improvements and likely close to being medically stable to discharge. Per PT, pt mostly CGA/SBA with mobility but needs assist with ADLs and strengthening and teaching DME as pt right hand dominant and currently only able to use her left arm and feel pt would benefit from SNF. SW met bedside with pt and explained role and discussed thoroughly possible options for discharge depending on her family availability for assist at home and staying with her initially vs SNF. Pt states her preference is SNF at d/c and really wants [facility] if SNF and SW confirmed with [facility] admissions that they have pt on their accepted list and will have a female bed available tomorrow 09/13/24. Pt confirms that this is her preference for discharge tomorrow. SW updated [facility] and and completed PASRR. Plan: SW to follow for plan of d/c to [facility] tomorrow Sun before safe return home alone with family support. DONAL Garza
[2024-09-12 12:00] VITALS: BP 126/67; PULSE 93; RESP 18; TEMP 36.7; O2SAT 95
--- NOTE | 2024-09-12 12:00 | PT-IP ANOTE ---
pt refused PT this morning. stated that she just got her arm positioned and just had a shower and wanting to rest.
[2024-09-12 16:00] VITALS: BP 144/74; PULSE 100; RESP 18; TEMP 37.2; O2SAT 95
--- NOTE | 2024-09-12 16:20 | PT.IPTN ---
Current Diagnoses Traumatic ischemia of muscle, initial encounter (09/08/24) Physical Therapy Treatment Note M2 PT-IP Current Condition Start: 09/09/24 12:54 Freq: NEEDED Status: Active Protocol: Document 09/09/24 11:45 AB (Rec: 09/09/24 13:19 AB [id number]) Physical Therapy Current Condition Current Condition Evaluation Date 09/09/24 Treatment Diagnosis R shld dislocation s/p reduction; R shld fx; rib fxs; difficulty in walking Onset Date 09/08/24 M3 PT-IP Subjective Start: 09/09/24 12:54 Freq: NEEDED Status: Active Protocol: Document 09/12/24 16:20 AB (Rec: 09/12/24 16:54 AB [id number]) Subjective Physical Therapy Visit Type Type Treatment Note Visit Start Time 16:20 Visit Stop Time 16:40 Number of PLATE WORKER Visits 0 M4 PT-IP Mobility and Gait Start: 09/09/24 12:54 Freq: NEEDED Status: Active Protocol: Document 09/12/24 16:20 AB (Rec: 09/12/24 16:54 AB [id number]) PT-Transfer Assessment Sit to and From Stand Sit to and from Stand Standby Assistance Equipment Transfer Assistive Device Gait Belt,Tripod Cane/Hurry Cane Orthotic/Prosthetic Devices or Brace: Yes Comments Mobility Comments checked on pt this afternoon and had visitors and asked PT to come back in half an hour. checked back on pt and agreed to do PT. Assisted pt with sling management. pt agreed to ambulate. sit to stand SBA and ambulation using hurrycane ~ 75 ft SBA. pt sat on the EOB and wants to sit there for now. Talked to pt regarding d/c plan. pt stated that her sons work and will not be able to stay with her. pt now agreeable to go to SNF and is awaiting placement. pt aware that she will need assistance especially her ADLs. Left pt sitting on EOB. call light next to pt. Gait Assessment Gait Gait Assistance Required: Standby Assistance Distance (Feet) 75 Able to Maintain Weight Bearing Status Yes During Gait Assistive Devices Assistive Device Gait Belt,Tripod Cane/Hurry Cane Orthotic/Prosthetic Devices or Brace: Yes Gait Deviations General Gait Pattern Antalgic,Decreased Stride Length,Decreased Feet Clearance,Step-to Gait Factors Limiting Gait Function Factors Limiting Gait Function Decreased Activity Tolerance, Decreased Strength,Limited Range of Motion,Pain,Poor Balance M5 PT-IP Objective Assessments Start: 09/09/24 12:54 Freq: NEEDED Status: Active Protocol: Document 09/09/24 11:45 AB (Rec: 09/09/24 13:19 AB [id number]) Orientation Orientation/Cognition Level of Alertness Alert Orientation Name,Place,Situation Language Function Ability No Deficits Noted Safety Awareness Understands Safety Issues Memory Description No Deficits Noted Gross Range of Motion Lower Extremity ROM Impairments R knee flexion contracture Strength Lower Extremity Strength Assessment Right Impaired Hip 3+/5 Knee 4-/5 Coordination Assessment Gross Coordination Gross Coordination WNL Muscle Tone Muscle Tone WNL Yes M6 PT-IP Treatment Start: 09/09/24 12:54 Freq: NEEDED Status: Active Protocol: Document 09/12/24 16:20 AB (Rec: 09/12/24 16:54 AB [id number]) Physical Therapy Treatment Education Education Provided Precautions,Weight Bearing Status,Safety M7 PT-IP Assessment and Plan Start: 09/09/24 12:54 Freq: NEEDED Status: Active Protocol: Document 09/12/24 16:20 AB (Rec: 09/12/24 16:54 AB [id number]) PT Summary Assessment and Plan Potential Rehabilitation Potential Fair Summary Impairments Pain,ROM,Strength,Balance, Coordination,Sensation,Tone, Cognition,Bed Mobility, Transfers,Gait,Activity Tolerance Progress Towards Goals Progressing Toward Goals Assessment Summary pt progressing with mobility and able to ambulate using a hurrycane SBA ~ 75 ft. pt plans to d/c to SNF rehab and is awaiting placement. Goals Bed Mobility Goal Independent Transfer Goal Independent,Cane Gait Goal Independent,Cane Gait Distance 150 Other Goals up/down 2 steps without rails SBA up/down 16 steps R rail ascending SBA Days to Meet Goals 10 Frequency of Treatment Frequency Of Treatment Once a Day Treatment Plan Physical Therapy Treatment Plan Bed Mobility Training,Transfer Training,Gait Training, Therapeutic Exercise,Balance Retraining,Post Op Education, Discharge Planning,Hot or Cold Pack,Neuromuscular Re-ed, Coordination Retraining,Manual Therapy Precautions Shoulder Precautions Sling Other Precautions Hazardous Drug precautions Weight Bearing Status Weight Bearing Status Non-Weight Bearing Allowed Weight Bearing Amount (enter % presumed NWB on RUE due to or #) (%) shoulder fx Recommendations To Nursing Amount of Assist Needed 1 Person Assist Discharge Recommendations PT Discharge Recommendations Home with Assistance,Home Health,SNF Rehab Transportation Needs at Discharge Private Vehicle,Wheelchair/ Cabulance
--- NOTE | 2024-09-12 17:23 | PM.PN.1 ---
Subjective Subjective Interval history: 79 yo female w/HTN, CKD who was admitted w/traumatic bifrontal SAH, Rt shoulder anterior dislocation and humeral head fx, 7 right sided rib fxs (ribs 3-9), traumatic rhabdo and R facial laceration after a fall on ice.? She has had progressive swelling and brusing of her arm but US for DVT could not be accomplished yesterday.? She has declined admission to SNF or d/c to her sons? homes in [place]. Patient reports she is doing better overall. She states her face is less bruise and it was several days ago. She denies any significant shortness of breath. She is receptive to [facility]. Exam Vital Signs (past 8 hours): - 09/12/24 12:00 Temperature 98.1 F Pulse Rate 93 H Respiratory Rate 18 Blood Pressure 126/67 Pulse Oximetry 95 Oxygen Flow Rate 0 Oxygen Delivery Method Room Air Oxygen Flow Rate 0 Narrative Exam Narrative: GEN: Elderly female, Alert and oriented x 3, NAD HEENT:NC, Face symmetric, significant bruising to the right face and forehead CHEST: Respiratory excursions symmetric, diminished but CTAB CV: RRR, no M/R/G ABD: Soft, NT/ND, BT present in all 4 quadrants, no organomegaly or masses EXTR: warm, well perfused, no C/C/E to the bilateral lower extremities, right arm is significantly swollen with diffuse bruising/hematoma SKIN: warm and dry, no rash NEURO: Alert and oriented x 3, nonfocal Objective Labs 09/11/24 08:32 09/11/24 08:32 [facility] Medical History Daily consumption of alcohol Chronic pansinusitis Nasal polyp Nasal obstruction Easy bruisability Osteoarthritis HLD (hyperlipidemia) HTN (hypertension) Surgical History History of total knee arthroplasty 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??? Rhabdo Resolving. CK was 3188 on admission, peaked at 6128, and was decreasing at 3110 on September 10. She does not complain of diffuse muscle pain or weakness. Her LFTs are also gradually improving with her AST down to 230 from a high of 376. ALT is 278 which is mildly increased from admission level of 232. 2. TONE Creatinine is 0.57. GFR is greater than 60. BUN is back down to 11. Is likely secondary to her rhabdomyolysis 3.??? Bifrontal SAH Patient is mentating normally today. No evidence of any cognitive issues. 4. R Shoulder dislocation and humeral head fx She underwent reduction in the emergency department. She does have significant bruising and swelling to the arm. She does have limited motion to the right arm as well. She will need assistance with her ADLs upon discharge 5. Rib fxs (ribs 3-9) She is oxygenating well and appears to be breathing without difficulty at this time. 6. Acute blood loss anemia Hemoglobin is stable at 8.8 on most recent lab work yesterday 7. Daily alcohol use No evidence for withdrawal Code status Full Prophylaxis Chemical prophylaxis was deferred in the setting of her subarachnoid hemorrhages Disposition [facility]. They may have a bed available tomorrow. Time-Based Coding :: [TOTAL MINUTES] spent with patient and on the chart (including review of chart, obtaining history, exam, reviewing outside data, placing orders, documenting exam and treatment plan, and counseling patient) on [DATE].
[2024-09-12 20:00] VITALS: BP 126/80; PULSE 74; RESP 21; TEMP 37.1; O2SAT 93
[2024-09-13] VITALS: BP 140/86; PULSE 80; RESP 19; TEMP 36.4; O2SAT 94
[2024-09-13] MEDS: OXYCODONE IR 5 MG TABLET PO ×2 (02:31→09:46)
[2024-09-13 04:00] VITALS: BP 124/76; PULSE 80; RESP 19; TEMP 37; O2SAT 94
[2024-09-13 08:00] VITALS: BP 137/81; PULSE 90; RESP 18; TEMP 36.7; O2SAT 92
[2024-09-13] MEDS: DOCUSATE 100 MG CAPSULE PO (09:47)
[2024-09-13] MEDS: polyethylene glycoL 3350 17 GM POWD.PACK PO (09:47)
[2024-09-13] MEDS: diphenhydrAMINE 50 MG/ML VIAL 25 MG IV (09:51)
--- NOTE | 2024-09-13 10:24 | CM.DPC ---
DCP Discharge SNF Per MD, pt medically stable to d/c to SNF today and discharge orders placed. JANAE called [facility] admissions and confirmed they can still accept the pt today with transport around 1300. JANAE faxed PAS[facility], med list, script, MD orders and no d/c summary available yet but MD notified. Updated mother tester, COOLING ROOM ATTENDANT, and RN and provided number to call report and per RN pt currently in shower and aware of the plan for discharge today. IMM had been provided yesterday in anticipation of d/c today. Plan: Patient to d/c to [facility] for SNF rehab today at 1300 via facility van before safe return home with family support. DONAL Garza
[2024-09-13 11:43] VITALS: BP 150/83; PULSE 84; RESP 15; TEMP 36.9; O2SAT 97
--- NOTE | 2024-09-13 14:33 | P.DS_ITS ---
History of Present Illness History of Present Illness Chief complaint: Fall, eye and arm injury, no blood thinners Narrative: Per H&P: This is a 79-year-old female with hypertension, hyperlipidemia and osteoarthritis who fell on the ice on her front deck at around 7:00 a.m. this morning. It took her 20 minutes to get up and back into the house. (At baseline she is walker/cane dependent for mobility.) She dislocated the right shoulder and fractured the right humeral head. She has bifrontal, right more than left subarachnoid hemorrhages that are stable on serial CT scans. She has rhabdomyolysis with a total CK level of 3188. She lives alone so first took a shower to clean off all the blood from the facial laceration, got herself dressed and then several hours later drove herself to the ED somehow despite these injuries and not being able to use her right hand. In the ED she underwent a propofol sedation for treatment of the dislocated shoulder. The ED physician spoke with Neurosurgery about the subarachnoid hemorrhages after the serial CTs showing no change and the recommendation was to follow up with her PCP in [address] The initial blood pressure was 98/50, rising to 121/65 after 1 L IV bolus. She states that she drinks 1 alcoholic drink per night. Her AST is 288 and her ALT is 216. Her 2 sons live in [place]. Now that the plan is settled she intends to inform them about her injuries. Discharge Providers Provider Date of admission: 09/08/24 17:35 Discharge Date: 09/13/24 Primary care physician: ROSALBA Nobles Consults: 09/08/24 18:30 Consult to Occupational Therapy Evaluate & Treat Comment: Physician Instructions: Evaluate and treat Consult to Physical Therapy Evaluate & Treat Comment: Physician Instructions: Evaluate and Treat Discharge provider: Maureen Santoyo MD Summary Hospital Course Discharge Diagnosis: 1.??Rhabdomyolysis, resolving 2. TONE, resolved 3.??Bifrontal SAH 4. R Shoulder dislocation, s/p reduction and humeral head fx, felt to be nonoperative 5. Rib fxs (ribs 3-9) 6. Acute blood loss anemia 7. Daily alcohol use Hospital Course: 79 yo female w/HTN, CKD who was admitted w/traumatic bifrontal SAH, Rt shoulder anterior dislocation and humeral head fx, 7 right sided rib fxs (ribs 3-9), traumatic rhabdomyolysis and R facial laceration after a fall on her deck d/t slipping on ice.? She cleaned herself up and drove herself to the hospital thinking she just needed sutures for a forehead laceration. She was found to have bilat SAH and above noted injuries as well. She has had progressive swelling and brusing of her arm felt to be d/t her fx.? She had initially declined admission to SNF or d/c to her sons? homes in [place]. However, after further discussion on 09/12, she was agreeable to a short stay at [facility]. She was accepted for admission and d/c arrangements were made. she is d/c'd in stable condition. She is encouraged to f/u w/Orthopedic surgery regarding the humerus fx and limitations for rehab. Status at Discharge Cognitive/behavioral status at discharge: at baseline, oriented Functional status at discharge: uses cane/walker Overall status at discharge: patient is progressing back to baseline Time Spent with Patient Time spent: Less than 30 minutes Exam Vital Signs (past 8 hours): - 09/13/24 08:00 09/13/24 11:43 Temperature 98.1 F 98.5 F Pulse Rate 90 84 Respiratory Rate 18 15 Blood Pressure 137/81 150/83 H Pulse Oximetry 92 97 Oxygen Flow Rate 0 0 Oxygen Delivery Method Room Air Oxygen Flow Rate 0 Narrative Exam Narrative: GEN: Elderly female, Alert and oriented x 3, NAD HEENT:NC, Face symmetric, significant bruising to the right face and forehead CHEST: Respiratory excursions symmetric, diminished but CTAB CV: RRR, no M/R/G ABD: Soft, NT/ND, BT present in all 4 quadrants, no organomegaly or masses EXTR: warm, well perfused, no C/C/E to the bilateral lower extremities, right arm is significantly swollen with diffuse bruising/hematoma, but improved c/w 09/12 exam SKIN: warm and dry, no rash NEURO: Alert and oriented x 3, nonfocal Objective Labs 09/11/24 08:32 09/11/24 08:32 [facility] Medical History Daily consumption of alcohol Chronic pansinusitis Nasal polyp Nasal obstruction Easy bruisability Osteoarthritis HLD (hyperlipidemia) HTN (hypertension) Surgical History History of total knee arthroplasty History of total right knee replacement (05/29/19) History of carpal tunnel surgery of right wrist (~2015) Hx of arthroscopy of right knee History of lumpectomy of right breast (~1984) Hx of tonsillectomy History of dilation and curettage (~1972) Social History household members: none Smoking Status: Current some day smoker alcohol intake: current Discharge Plan Discharge Plan Patient Disposition: SNF Transfer to: [facility] Provider Discharge Comment: 1) Use the spirometer 10 times hourly to promote deep breathing and to prevent pneumonia 2) use caution with walking due to your fracture and inability to use the walker 3) Recommend f/u appointment to be scheduled w/Dr. Jean-Baptiste regarding your shoulder fracture F/u in ED for: Fevers/chills, worsening swelling to your right arm, shortness of breath, new onset headaches or confusion Discharge orders & Medications Prescriptions: New polyethylene glycol 3350 17 gram Powder In Packet 17 gm PO DAILY Qty: 30 0RF docusate sodium 100 mg Capsule 100 mg PO BID Qty: 60 0RF oxycodone 5 mg Tablet 5 mg PO Q3HR PRN (Reason: Pain, Moderate (4-6)) Qty: 30 0RF Continued atorvastatin [Lipitor] 10 MG tablet 10 mg PO QAM Qty: 0 Menostar 14 mcg/24 hr patch weekly 1 patch topical QWEEK progesterone micronized 200 mg capsule 200 mg PO SEEINSTR Rx Instructions: Take one table by mouth for 12 days. Every 6 months. Discontinued lisinopril 10 MG tablet 10 mg PO QDAY Qty: 0 ibuprofen 400 mg tablet 400 mg PO Q4H Qty: 60 0RF Rx Instructions: take 1 tablet by mouth every four hours for inflammation Follow up/Referrals: Jaylene Ponce ARNP [Primary Care Provider] - Discharge Health Status Precautions: [place] Diet/Activity/Treatments Diet: Diet as Tolerated and Regular Liquid consistency: Normal/Thin Food texture: Regular Activity: As tolerated,per PT/OT Oxygen: N/A Special Rehabilitation Services Reason for rehabilitation: Post-operative therapy Rehab type: Physical therapy and Occupational therapy Restrictions to mobility: shoulder sling, non weight bearing on R shoulder Visit Report/Discharge Packet Stand Alone Forms: Patient Portal/API Discharge Data Primary Care Provider: Jaylene Ponce
== END 2024-09-13 13:00 | DRG 964 ==
LOC: ED 17:19 → AC 17:54
PROVIDERS: Hospitalist; Admitting Provider Family Medicine; Emergency Provider Emergency Medicine; PCP Registered Nurse; Referring Provider Emergency Medicine; Visit Provider Family Medicine
DX: T79.6XXA Traumatic ischemia of muscle, initial encounter (principal); D62 Acute posthemorrhagic anemia; S06.6X0A Traumatic subarachnoid hemorrhage without loss of consciousness, initial encounter; N17.9 Acute kidney failure, unspecified; S42.291A Other displaced fracture of upper end of right humerus, initial encounter for closed fracture; S22.41XA Multiple fractures of ribs, right side, initial encounter for closed fracture; R00.0 Tachycardia, unspecified; N18.9 Chronic kidney disease, unspecified; F10.90 Alcohol use, unspecified, uncomplicated; Y90.0 Blood alcohol level of less than 20 mg/100 ml; R74.01 Elevation of levels of liver transaminase levels; E78.5 Hyperlipidemia, unspecified; I12.9 Hypertensive chronic kidney disease with stage 1 through stage 4 chronic kidney disease, or unspecified chronic kidney disease; S01.81XA Laceration without foreign body of other part of head, initial encounter; F17.200 Nicotine dependence, unspecified, uncomplicated; W00.0XXA Fall on same level due to ice and snow, initial encounter; Z79.890 Hormone replacement therapy
CPT/HCPCS: 12011; 23650; 36415; 70450; 70486; 71045; 71275; 72125; 73020; 73060; 73070; 73100; 74177; 80053; 80320; 82550; 83690; 83735; 83880; 84484; 85025; 85610; 85730; 93005; 96360; 97116; 97162; 97167; 97530; 99156; 99157; 99285; 99291; J1200; J2704; Q9967

== ENCOUNTER → 2024-10-27 10:53 | Outpatient (CLI) | payer MEDICARE, OTHER, SELFPAY ==
[2024-09-08 21:11] VITALS: BMI 20.5
--- NOTE | 2024-10-27 10:56 | DI.CT.S_ITS ---
PROCEDURE: CT HEAD/BRAIN WO CON INDICATIONS: SAH FOLLOW UP TECHNIQUE: Noncontrast 4.5 mm thick angled axial sections acquired from the foramen magnum to the vertex, with coronal and sagittal reformats. For radiation dose reduction, the following was used: automated exposure control, adjustment of mA and/or kV according to patient size. COMPARISON: [facility], CT, CT HEAD/BRAIN WO CON, 09/08/2024, 17:04. FINDINGS: Image quality: Diagnostic. CSF spaces: Basal cisterns are patent. No extra-axial fluid collections. The ventricles are symmetric in size and shape. Brain: No intracranial bleeds or masses. Previously present subdural hematoma appears resolved. No new hemorrhage. There is cerebral volume loss for age, with resultant ventricular and sulcal prominence. There are periventricular and deep white matter chronic small vessel ischemic changes. There is intracranial internal carotid artery atherosclerosis. Skull and face: Calvarium and visualized facial bones appear intact, without suspicious lesions. Sinuses: Visualized sinuses and mastoids are clear. IMPRESSION: Interval resolution of previous subdural hematoma. Dictated by: Ness Pineda M.D. on 10/27/2024 at 13:06 Approved by: Ness Pineda M.D. on 10/27/2024 at 13:07
== END ==
PROVIDERS: PCP Registered Nurse; Referring Provider Registered Nurse; Visit Provider Registered Nurse
DX: I60.9 Nontraumatic subarachnoid hemorrhage, unspecified (principal); I67.2 Cerebral atherosclerosis
CPT/HCPCS: 70450